=== PATIENT | male | born 1935 | race Caucasian/White ===

== ENCOUNTER 2016-12-15 10:16 | Outpatient (CLI) | payer MEDICARE | END 2016-12-15 10:17 | disposition home or self-care (01) | DX: E78.00 Pure hypercholesterolemia, unspecified (principal) ==

== ENCOUNTER 2016-12-29 08:00 | Outpatient (CLI) | payer MEDICARE | END 2016-12-29 08:01 | DX: E78.00 Pure hypercholesterolemia, unspecified (principal); E53.8 Deficiency of other specified B group vitamins; R41.3 Other amnesia ==

== ENCOUNTER 2016-12-30 11:28 | Outpatient (CLI) | payer MEDICARE | END 2016-12-30 11:29 | disposition home or self-care (01) | DX: E53.8 Deficiency of other specified B group vitamins (principal) ==

== ENCOUNTER 2017-01-19 10:44 | Outpatient (CLI) | payer MEDICARE | END 2017-01-19 10:45 | disposition home or self-care (01) | DX: R41.0 Disorientation, unspecified (principal); R41.3 Other amnesia ==

== ENCOUNTER 2017-06-23 12:45 | Outpatient (CLI) | payer MEDICARE | END 2017-06-23 12:46 | disposition home or self-care (01) | LOC: LAB.F 12:45 | PROVIDERS: ATTEND Internal Medicine | DX: E53.8 Deficiency of other specified B group vitamins (principal) | CPT/HCPCS: 36415; 82607 ==

== ENCOUNTER 2017-08-25 12:34 | Outpatient (CLI) | payer MEDICARE | END 2017-08-25 12:35 | disposition home or self-care (01) | LOC: LAB.F 12:34 | PROVIDERS: ATTEND Family Medicine | DX: E53.8 Deficiency of other specified B group vitamins (principal) | CPT/HCPCS: 36415; 82607 ==

== ENCOUNTER 2017-09-05 18:23 | Outpatient (CLI) | payer MEDICARE | END 2017-09-05 18:24 | disposition critical access hospital (66) | LOC: EMS 18:23 | PROVIDERS: ATTEND Surgery | DX: R53.1 Weakness (principal); R41.0 Disorientation, unspecified; R05 Cough | CPT/HCPCS: A0425; A0427 ==

== ENCOUNTER 2017-09-05 19:19 | Emergency (ER) | payer MEDICARE ==
[2017-09-05 20:13] LABS: BILIRUBIN,URINE NEGATIVE (NEGATIVE); PH,URINE 5.5 PH (5.0-7.5); UA CHARGE (STRIP ONLY) YES; UR CULTURE IF IND NOT INDICATED
[2017-09-05] MEDS ORDERED: ONDANSETRON ODT 4 MG TABLET TL STA (20:59)
--- NOTE | 2017-09-05 21:13 | XRAY Preliminary Report ---
Exam: XR CHEST 2 VIEW PA/LAT IMPRESSION: Clear lungs. [facility] SITE ID: [id number]
--- NOTE | 2017-09-05 21:15 | XRAY Report ---
EXAM: CHEST RADIOGRAPHY EXAM DATE: 09/05/2017 08:11 PM. CLINICAL HISTORY: Cough. Vomiting. COMPARISON: 06/10/2012. TECHNIQUE: 2 views. FINDINGS: Lungs/Pleura: No focal opacities evident. No pleural effusion. No pneumothorax. Normal volumes. Mediastinum: Heart and mediastinal contours are unremarkable. Other: Stable mild midthoracic compression fracture. IMPRESSION: Clear lungs. [facility] Referring Provider Line: [phone] SITE ID: [id number]
[2017-09-05] MEDS ORDERED: AZITHROMYCIN 250 MG TABLET PO STA (21:33)
--- NOTE | 2017-09-05 23:02 | ED Physician Documentation ---
History of Present Illness - Stated complaint Stated Complaint: NAUSEA - Chief complaint Chief Complaint: Fever - History obtained from History obtained from: Family (pt here for evaluation of 1 week of a cough and decreased PO intake today and vomiting and diarrhea. Pt has hx od dementia. states that the pt was weak today. he arrived by ems.) Review of Systems Unable to obtain: Other (ROS provided by . pt denied any symptoms when asked but I believe his dementia limited his responces.) Constitutional: reports: Fever, Chills, Myalgias, Fatigue Respiratory: reports: Cough. denies: Dyspnea, Hemoptysis GI: reports: Nausea, Vomiting, Diarrhea. denies: Hematemesis, Bloody / black stool : reports: Incontinent Skin: denies: Rash Neurologic: reports: Generalized weakness. denies: Altered mental status, LOC PD PAST MEDICAL HISTORY - Past Medical History Past Medical History: Yes Respiratory: None Neuro: Alzhiemer's Endocrine/Autoimmune: None GI: GERD : None HEENT: None Psych: None Musculoskeletal: None Derm: None - Past Surgical History Past Surgical History: Yes General: Cholecystectomy, Bowel surgery, Colonoscopy Ortho: Other - Present Medications Home Medications: Ambulatory Orders Medication Instructions Recorded Confirmed Azithromycin 250 mg PO DAILY #4 tablet 09/05/17 Donepezil HCl [Aricept] 10 mg DAILY 09/05/17 09/05/17 Memantine HCl 10 mg DAILY 09/05/17 09/05/17 Ondansetron Odt [Zofran Odt] 4 mg TL Q6H PRN #10 tablet 09/05/17 Ranitidine HCl [Heartburn Relief] 150 mg PO DAILY 09/05/17 09/05/17 - Allergies Allergies/Adverse Reactions: Allergies Allergy/AdvReac Type Severity Reaction Status Date / Time No Known Drug Allergies Allergy Verified 09/05/17 19:29 - Social History Does the pt smoke?: No Smoking Status: Never smoker Does the pt drink ETOH?: No Does the pt have substance abuse?: No - Immunizations Immunizations are current?: Yes - POLST Patient has POLST: No PD ED PE NORMAL - Vitals Vital signs reviewed: Yes (Tachycardic to 105 in triage) - General General: No acute distress - HEENT HEENT: Atraumatic, Moist mucous membranes - Cardiac Cardiac: No murmur. No: RRR (tachycardic ) - Respiratory Respiratory: No respiratory distress, Clear bilaterally - Abdomen Abdomen: Soft - Rectal Rectal: Other (hemeoccult neg with control positive. green stool ) - Derm Derm: Normal color, Warm and dry, No rash - Neuro Neuro: Normal speech, Other (alert to person, states he is in a hospital but named a nospital in [place]. states that he is at baseline mental status. ) Eye Opening: Spontaneous Motor: Obeys Commands Verbal: Confused GCS Score: 14 - Psych Psych: Normal affect Results - Vitals Vitals: Vital Signs - 24 hr 09/05/17 09/05/17 19:21 22:37 Temperature 36.7 C 36.9 C Heart Rate 100 105 H Respiratory 18 28 H Rate Blood Pressure 139/89 H 145/85 H O2 Saturation 94 93 Oxygen O2 Source Room air - Labs Labs: Laboratory Tests 09/05/17 20:05 Urine Color YELLOW Urine Clarity CLEAR Urine pH 5.5 Ur Specific [place] >=1.030 H Urine Protein TRACE Urine Glucose (UA) NEGATIVE Urine Ketones TRACE Urine Occult Blood TRACE-INTA Urine Nitrite NEGATIVE Urine Bilirubin NEGATIVE Urine Urobilinogen 0.2 (NORMAL) Ur Leukocyte Esterase NEGATIVE Ur Microscopic Review NOT INDICATED Urine Culture Comments NOT INDICATED - Rads (name of study) CXR Radiology: Final report received PD MEDICAL DECISION MAKING - ED course Complexity details: reviewed results, re-evaluated patient, considered differential, d/w family ED course: pt tachycardic and high spec grav on UA which lends toward mild dehydration. pt received fluids in the ER. Pt tolerated PO intake in the ER. he has had subjective fevers per the and with the cough and nausea and vomiting will start ABX for presumed PNA. pt has no risk for HCAP. pt given first dose of ABX here in the ER and tolerated well. discussed treatment with the and the patient. we discussed increasing PO intake and gave return precautions. Just prior to discharge the states that she felt uncomfortable with taking the patient home because she felt like the patient was not "normal". We discussed head CT for concerns of a CVA but the declined. she thought that the patient was still dehydrated. After further discussion i explained to her that he was tolerating oral intake. looked well. unremarkable vital signs. His was concerned about how she was going to get the patient home. I offered to let them stay in the ER overnight and we could discharge them in the morning when she could call for a ride. I gave the patient another 1L fluids and ad maite po intake. pt remained stable in the ER overnight. Departure - Departure Disposition: Home, Self Care Clinical Impression: Pneumonia, Diarrhea, Vomiting Condition: Good Instructions: Pneumonia Dc, Diet Clear Liquid Dc, ED Diet Vomiting Diarrhea Follow-Up: primary, care provider [Other] Prescriptions: Azithromycin 250 mg PO DAILY #4 tablet Ondansetron Odt [Zofran Odt] 4 mg TL Q6H PRN #10 tablet PRN Reason: Nausea / Vomiting Comments: Increase your fluid intake. Fill the medications on Wednesday morning. Return to the ER for any new or worsening symptoms.
[2017-09-05] MEDS ORDERED: ONDANSETRON ODT 4 MG Prepack 2 TL PRN (23:37)
[2017-09-05] MEDS ORDERED: SODIUM CHLORIDE 0.9% 1,000 ML IV ONE (23:54)
[2017-09-06 06:36] VITALS: BP 139/79
[2017-09-06] MEDS ORDERED: AZITHROMYCIN 250 MG TABLET PO STA (07:16)
[2017-09-06] MEDS ORDERED: ONDANSETRON ODT 4 MG Prepack 2 TL STA (07:16)
== END 2017-09-06 07:24 | disposition home or self-care (01) ==
LOC: EDUNIT# → ED 19:19
DX: J18.9 Pneumonia, unspecified organism (principal); R19.7 Diarrhea, unspecified; R11.2 Nausea with vomiting, unspecified; G30.9 Alzheimer's disease, unspecified; F02.80 Dementia in other diseases classified elsewhere, unspecified severity, without behavioral disturbance, psychotic disturbance, mood disturbance, and anxiety; K21.9 Gastro-esophageal reflux disease without esophagitis
CPT/HCPCS: 71020; 81003; 96360; 99283; A9270; Q0162; 81001; 87086

== ENCOUNTER 2018-02-15 15:43 | Outpatient (CLI) | payer MEDICARE ==
--- NOTE | 2018-02-18 10:42 | XRAY Report ---
XRAY 2 VIEW RIGHT: 02/15/2018 FINDINGS: Atrophic area right thenar eminence and first MCP joint. Scattered degenerative changes seen in the interphalangeal joints of the fingers and thumb. Minimal early first metacarpocarpal articulation degenerative changes. No other significant abnormality is seen. IMPRESSION: DEGENERATIVE CHANGE RIGHT HAND. COMMENT: Requisition refers to excluding a carpal bone occult fracture. If there is high clinical suspicion for wrist pathology, detailed four view wrist imaging may be useful. TD: 02/16/2018 12:29
== END 2018-02-15 15:44 | disposition home or self-care (01) ==
LOC: DI.S 15:43
PROVIDERS: ATTEND Internal Medicine
DX: M21.941 Unspecified acquired deformity of hand, right hand (principal)

== ENCOUNTER 2018-03-15 08:13 | Outpatient (CLI) | payer MEDICARE | END 2018-03-15 08:14 | disposition home or self-care (01) | LOC: LAB.F 08:13 | PROVIDERS: ATTEND Physician Assistant Medical | DX: E53.8 Deficiency of other specified B group vitamins (principal) | CPT/HCPCS: 36415; 82607 ==

== ENCOUNTER 2018-04-05 08:48 | Outpatient (CLI) | payer MEDICARE ==
[2018-04-05 17:39] LABS: BASOPHILS # (AUTO) 0.1 10^3/uL (0.0-0.1); BASOPHILS % (AUTO) 1.4 %; EOSINOPHILS # (AUTO) 0.3 10^3/uL (0.0-0.7); EOSINOPHILS % (AUTO) 4.5 %; HGB - HEMOGLOBIN 14.8 g/dL (14.0-18.0); LYMPHOCYTES # (AUTO) 1.4 10^3/uL (1.5-3.5); LYMPHOCYTES % (AUTO) 24.3 %; MEAN CORPUSCULAR HEMOGLOBIN 31.5 pg (27.0-31.0); MEAN CORPUSCULAR VOLUME 95.5 fL (80.0-94.0); MEAN PLATELET VOLUME 8.8 fL (7.4-11.4); MONOCYTES # (AUTO) 0.6 10^3/uL (0.0-1.0); MONOCYTES % (AUTO) 10.2 %; NEUTROPHILS # (AUTO) 3.5 10^3/uL (1.5-6.6); NEUTROPHILS % (AUTO) 59.6 %; PLT - PLATELET COUNT 160 10^3/uL (130-450); RED BLOOD COUNT 4.69 10^6/uL (4.70-6.10); RED CELL DISTRIBUTION WIDTH 14.2 % (12.0-15.0); WHITE BLOOD COUNT 5.8 x10^3/uL (4.8-10.8)
[2018-04-05 18:02] LABS: ALBUMIN 3.9 g/dL (3.2-5.5); ALBUMIN/GLOBULIN RATIO 1.3 (1.0-2.2); ALKALINE PHOSPHATASE 68 IU/L (42-121); ALT ALANINE AMINOTRANSFERASE 16 IU/L (10-60); AST ASPARTATE AMINOTRANSFERASE 22 IU/L (10-42); BILIRUBIN,TOTAL 1.4 mg/dL (0.2-1.0); BUN - BLOOD UREA NITROGEN 16 mg/dL (6-20); CALCIUM 9.5 mg/dL (8.5-10.3); CARBON DIOXIDE - CO2 26 mmol/L (21-32); CHLORIDE 106 mmol/L (101-111); CHOL/HDL RATIO 3.5 (<5.0); CHOLESTEROL 156 mg/dL; CREATININE 1.1 mg/dL (0.6-1.2); GFR - MDRD 64 (>89); GLUCOSE 89 mg/dL (70-100); HDL CHOLESTEROL 44 mg/dL; LDL CHOLESTEROL,CALCULATED 92 mg/dL; LDL/HDL RATIO 2.1 (<3.6); SODIUM 138 mmol/L (135-145); TOTAL PROTEIN 6.9 g/dL (6.7-8.2); VLDL CHOLESTEROL 20 mg/dL
== END 2018-04-05 08:49 | disposition home or self-care (01) ==
LOC: LAB.F 08:48
PROVIDERS: ATTEND Physician Assistant Medical
DX: Z51.81 Encounter for therapeutic drug level monitoring (principal); E78.00 Pure hypercholesterolemia, unspecified
CPT/HCPCS: 36415; 80053; 80061; 83721; 85025

== ENCOUNTER 2018-04-08 10:31 | Outpatient (CLI) | payer MEDICARE ==
--- NOTE | 2018-04-08 11:45 | XRAY Report ---
Procedure Date: 04/08/2018 Accession Number: [id number] / [id number] Procedure: XRS - Chest 2 View X-Ray CPT Code: 14850 FULL RESULT: EXAM: Chest 2 View X-Ray DATE: 04/08/2018 10:46 AM CLINICAL HISTORY: CHRONIC COUGH COMPARISON: 09/05/2017. TECHNIQUE: 2 views. FINDINGS: Lungs/Pleura: No focal opacities evident. No pneumothorax or pleural effusion. Normal volumes. Mediastinum: Heart and mediastinal contours are unremarkable. Other: None. IMPRESSION: No acute cardiopulmonary abnormality. [facility]
== END 2018-04-08 10:32 | disposition home or self-care (01) ==
LOC: DI.S 10:31
PROVIDERS: ATTEND Physician Assistant Medical
DX: R05 Cough (principal)
CPT/HCPCS: 71046

== ENCOUNTER 2018-07-06 11:26 | Outpatient (CLI) | payer MEDICARE | END 2018-07-06 11:27 | disposition home or self-care (01) | LOC: LAB.F 11:26 | PROVIDERS: ATTEND Physician Assistant Medical | DX: E53.8 Deficiency of other specified B group vitamins (principal) | CPT/HCPCS: 36415; 82607 ==

== ENCOUNTER 2018-10-05 14:21 | Outpatient (CLI) | payer MEDICARE | END 2018-10-05 14:22 | disposition home or self-care (01) | LOC: LAB.F 14:21 | PROVIDERS: ATTEND Physician Assistant Medical | DX: E53.8 Deficiency of other specified B group vitamins (principal) | CPT/HCPCS: 36415; 82607 ==

== ENCOUNTER 2018-12-02 15:13 | Outpatient (CLI) | payer MEDICARE ==
--- NOTE | 2018-12-04 22:02 | XRAY Report ---
Reason: RIB PAIN,LEFT SIDED Procedure Date: 12/02/2018 Accession Number: [id number] / [id number] Procedure: XR - Ribs w/PA Chest LT CPT Code: FULL RESULT: EXAM: CHEST AND LEFT RIB RADIOGRAPHY. EXAM DATE: 12/02/2018 03:59 PM. CLINICAL HISTORY: Rib pain, left-sided. COMPARISON: CHEST 2 VIEW PA/LAT 09/05/2017 8:10 PM. TECHNIQUE: 1 view of the chest and 2 views of the ribs. FINDINGS: Bones: Possible subacute fracture of the anterior portion of the left 10th rib, near the costochondral junction. A clinical subtle abnormality of the costochondral junction of the left ninth rib. There is an old healed posterolateral left sixth rib fracture. Lungs: No focal opacities. No pneumothorax. No pleural effusions. Mediastinum: Heart and mediastinal contours are unremarkable. Other: Moderate bilateral shoulder degenerative change. Prior cholecystectomy. IMPRESSION: 1. Subacute fracture of the anterior costochondral junction of the left 10th rib is suspected. Equivocal similar abnormality of the left ninth costochondral junction region. 2. Old healed left sixth rib fracture. [facility]
== END 2018-12-02 15:14 | disposition home or self-care (01) ==
LOC: DI 15:13
PROVIDERS: ATTEND Physician Assistant Medical
DX: R07.81 Pleurodynia (principal)

== ENCOUNTER 2019-09-20 14:00 | Outpatient (CLI) | payer MEDICARE ==
[2019-09-20 16:58] LABS: BASOPHILS # (AUTO) 0.1 10^3/uL (0.0-0.1); BASOPHILS % (AUTO) 0.9 %; EOSINOPHILS # (AUTO) 0.2 10^3/uL (0.0-0.7); EOSINOPHILS % (AUTO) 2.2 %; LYMPHOCYTES # (AUTO) 1.4 10^3/uL (1.5-3.5); LYMPHOCYTES % (AUTO) 20.9 %; MEAN CORPUSCULAR HEMOGLOBIN 31.7 pg (27.0-31.0); MEAN CORPUSCULAR HGB CONC 33.3 g/dL (32.0-36.0); MEAN CORPUSCULAR VOLUME 95.3 fL (80.0-94.0); MEAN PLATELET VOLUME 10.6 fL (7.4-11.4); MONOCYTES # (AUTO) 0.6 10^3/uL (0.0-1.0); MONOCYTES % (AUTO) 8.8 %; NEUTROPHILS # (AUTO) 4.5 10^3/uL (1.5-6.6); NEUTROPHILS % (AUTO) 66.6 %; PLT - PLATELET COUNT 175 10^3/uL (130-450); RED BLOOD COUNT 4.73 10^6/uL (4.70-6.10); RED CELL DISTRIBUTION WIDTH 12.3 % (12.0-15.0); WHITE BLOOD COUNT 6.7 x10^3/uL (4.8-10.8)
[2019-09-20 17:19] LABS: ALBUMIN 3.8 g/dL (3.2-5.5); ALBUMIN/GLOBULIN RATIO 1.4 (1.0-2.2); BILIRUBIN,TOTAL 0.7 mg/dL (0.2-1.0); CALCIUM 9.5 mg/dL (8.5-10.3); CREATININE 1.2 mg/dL (0.6-1.2); TOTAL PROTEIN 6.6 g/dL (6.7-8.2)
== END 2019-09-20 14:01 | disposition home or self-care (01) ==
LOC: LAB.S 14:00
PROVIDERS: ATTEND Physician Assistant Medical
DX: I10 Essential (primary) hypertension (principal)
CPT/HCPCS: 36415; 80053; 85025

== ENCOUNTER 2020-08-30 07:20 | Outpatient (CLI) | payer MEDICARE ==
[2020-08-30 15:53] LABS: BASOPHILS # (AUTO) 0.1 10^3/uL (0.0-0.1); BASOPHILS % (AUTO) 0.8 %; EOSINOPHILS # (AUTO) 0.1 10^3/uL (0.0-0.7); EOSINOPHILS % (AUTO) 2.3 %; LYMPHOCYTES # (AUTO) 1.6 10^3/uL (1.5-3.5); LYMPHOCYTES % (AUTO) 25.6 %; MEAN CORPUSCULAR HEMOGLOBIN 31.1 pg (27.0-31.0); MEAN CORPUSCULAR HGB CONC 31.9 g/dL (32.0-36.0); MEAN CORPUSCULAR VOLUME 97.3 fL (80.0-94.0); MEAN PLATELET VOLUME 10.8 fL (7.4-11.4); MONOCYTES # (AUTO) 0.6 10^3/uL (0.0-1.0); MONOCYTES % (AUTO) 9.5 %; NEUTROPHILS # (AUTO) 3.8 10^3/uL (1.5-6.6); NEUTROPHILS % (AUTO) 61.5 %; PLT - PLATELET COUNT 176 10^3/uL (130-450); RED BLOOD COUNT 4.83 10^6/uL (4.70-6.10); RED CELL DISTRIBUTION WIDTH 12.9 % (12.0-15.0); WHITE BLOOD COUNT 6.1 x10^3/uL (4.8-10.8)
[2020-08-30 16:05] LABS: ALBUMIN 3.5 g/dL (3.2-5.5); ALBUMIN/GLOBULIN RATIO 1.1 (1.0-2.2); CALCIUM 9.3 mg/dL (8.5-10.3); CREATININE 1.1 mg/dL (0.6-1.2); TOTAL PROTEIN 6.7 g/dL (6.7-8.2)
== END 2020-08-30 07:21 | disposition home or self-care (01) ==
LOC: LAB.S 07:20
PROVIDERS: ATTEND Internal Medicine
DX: I10 Essential (primary) hypertension (principal)
CPT/HCPCS: 36415; 80053; 85025

== ENCOUNTER 2020-12-19 08:00 | Outpatient (CLI) | payer MEDICARE ==
--- NOTE | 2020-12-19 14:05 | XRAY Report ---
PROCEDURE: Ribs w/PA Chest LT INDICATIONS: LEFT SIDED RIB PAIN/CHEST WALL PAIN TECHNIQUE: 2 views of the left ribs were acquired, along with a single view chest. COMPARISON: 2 view chest x-ray 04/08/2018 FINDINGS: Surgical changes and devices: None. Bones and chest wall: Chronic-appearing left sixth rib fracture. No displaced acute rib fracture. No suspicious bony lesions. Overlying soft tissues appear unremarkable. Lungs and pleura: No pleural effusions or pneumothorax. Lungs appear clear. Mediastinum: Mediastinal contours appear normal. Heart size is normal. IMPRESSION: 1. No acute displaced rib fracture. 2. Chronic appearing left sixth rib fracture. 3. No acute cardiopulmonary disease process. Reviewed by: Trice Patrick MD, PhD on 12/19/2020 2:04 PM PDT Approved by: Trice Patrick MD, PhD on 12/19/2020 2:04 PM PDT Station ID: [id number]
== END 2020-12-19 23:59 | disposition home or self-care (01) ==
LOC: DI.S 08:00
PROVIDERS: ATTEND Physician Assistant Medical
DX: R07.89 Other chest pain (principal)

== ENCOUNTER 2021-01-11 05:25 | Outpatient (CLI) | payer MEDICARE | END 2021-01-11 05:26 | disposition EMS.NT | LOC: EMS 05:25 | DX: Z03.89 Encounter for observation for other suspected diseases and conditions ruled out (principal) ==

== ENCOUNTER 2021-03-23 15:35 | Outpatient (CLI) | payer MEDICARE | END 2021-03-23 15:36 | disposition critical access hospital (66) | LOC: EMS 15:35 | DX: R25.1 Tremor, unspecified (principal); R11.10 Vomiting, unspecified; R53.1 Weakness | CPT/HCPCS: A0425; A0429 ==

== ENCOUNTER 2021-03-23 16:08 | Inpatient (IN) | payer MEDICARE ==
--- NOTE | 2021-03-23 16:18 | ED Physician Documentation ---
History of Present Illness - Stated complaint Stated Complaint: BACK PX/SHAKING - History obtained from History obtained from: EMS - Additonal information Additional information: 85-year-old gentleman presents by ambulance. Reportedly had gone to an urgent care care complaining of shakes chills and vomiting. While there was also complaining of chest and abdominal pain. Noted to be hypoxic on the way here. He is demented and cannot provide any history. Reportedly the should be closely following behind. Everything that the paramedics are saying and paperwork that accompanies him suggest that he is would not want intubation/s urgery etc. Review of Systems Unable to obtain: Dementia PD PAST MEDICAL HISTORY - Past Medical History Respiratory: None Endocrine/Autoimmune: None GI: GERD : None HEENT: None Psych: None Musculoskeletal: None Derm: None - Past Surgical History Past Surgical History: Yes General: Cholecystectomy, Bowel surgery, Colonoscopy Ortho: Other - Present Medications Home Medications: Ambulatory Orders Medication Instructions Recorded Confirmed Donepezil HCl [Aricept] 10 mg DAILY 09/05/17 03/23/21 Memantine HCl 10 mg PO DAILY 09/05/17 03/23/21 Acetaminophen/Diphenhydramine [[facility] 2 tab PO HS 03/23/21 03/23/21 Pain Relief Pm Caplet] Meloxicam [Mobic] 1 tab PO DAILY 03/23/21 03/23/21 Naproxen [Naprosyn] 1 tab PO DAILY 03/23/21 03/23/21 Omeprazole 1 tab PO DAILY 03/23/21 03/23/21 amLODIPine [Norvasc] 2.5 mg PO DAILY 03/23/21 03/23/21 - Allergies Allergies/Adverse Reactions: Allergies Allergy/AdvReac Type Severity Reaction Status Date / Time No Known Drug Allergies Allergy Verified 03/23/21 16:28 - Social History Does the pt smoke?: No Smoking Status: Never smoker Does the pt drink ETOH?: No Does the pt have substance abuse?: No - Immunizations Immunizations are current?: Yes - POLST Patient has POLST: No PD ED PE NORMAL - Vitals Vital signs reviewed: Yes - General General: Other (He is tachypneic and mildly ill-appearing, covered in vomitus. He knows his name, but cannot, up with the year, his age, or where he is.) - HEENT HEENT: PERRL, EOMI - Neck Neck: Supple, no meningeal sign, No bony TTP - Cardiac Cardiac: RRR, No murmur - Respiratory Respiratory: Other (Tachypneic, decreased at the bases) - Abdomen Abdomen: Non tender - Back Back: No CVA TTP, No spinal TTP - Derm Derm: Normal color, Warm and dry - Extremities Extremities: Other (Moderate bilateral pitting pedal edema) - Neuro Eye Opening: Spontaneous Motor: Obeys Commands Verbal: Confused GCS Score: 14 Results - Vitals Vitals: Vital Signs - 24 hr 03/23/21 03/23/21 03/23/21 16:15 16:33 17:19 Temperature 36.3 C L Heart Rate 113 H 110 H 101 H Respiratory 17 18 27 H Rate Blood Pressure 138/84 H 115/83 H O2 Saturation 88 L 91 L 1 L 03/23/21 03/23/21 03/23/21 18:00 18:30 18:45 Temperature Heart Rate 99 99 101 H Respiratory 28 H 24 26 H Rate Blood Pressure 120/71 114/68 116/66 O2 Saturation 91 L 94 92 Oxygen O2 Source Room air - EKG (time done) 1825 Rate: Rate (enter#) (99) Rhythm: Atrial fibrillation Intervals: RBBB QRS: Normal Ischemia: Non specific changes (He does have some potentially ischemic EKG changes with ST elevation inferiorly, but it is generally submillimeter. And there is no real reciprocal change.) Computer interpretation: Agree with computer - Labs Labs: Laboratory Tests 03/23/21 03/23/21 03/23/21 16:25 16:25 16:25 WBC 13.8 H RBC 4.73 Hgb 14.8 Hct 43.2 MCV 91.3 MCH 31.3 H MCHC 34.3 RDW 13.3 Plt Count 170 MPV 10.1 Neut # (Auto) 12.9 H Lymph # (Auto) 0.[address] [place] # (Auto) 0.6 Eos # (Auto) 0.0 Baso # (Auto) 0.0 Absolute Nucleated RBC 0.00 Nucleated RBC % 0.0 Sodium 138 Potassium 3.6 Chloride 109 Carbon Dioxide 20 L Anion Gap 9.0 BUN 19 Creatinine 1.1 Estimated GFR (MDRD) 64 L Glucose 100 Lactic Acid Calcium 9.8 Total Bilirubin 1.5 H AST 35 ALT 21 Alkaline Phosphatase 108 Troponin I High Sens 78.0 H* B-Natriuretic Peptide Total Protein 7.0 Albumin 3.6 Globulin 3.4 Albumin/Globulin Ratio 1.1 Lipase 24 Urine Color Urine Clarity Urine pH Ur Specific [place] Urine Protein Urine Glucose (UA) Urine Ketones Urine Occult Blood Urine Nitrite Urine Bilirubin Urine Urobilinogen Ur Leukocyte Esterase Urine RBC Urine WBC Ur Squamous Epith Cells Urine Crystals Urine Bacteria Ur Microscopic Review Urine Culture Comments 03/23/21 03/23/21 03/23/21 16:25 16:31 18:58 WBC RBC Hgb Hct MCV MCH MCHC RDW Plt Count MPV Neut # (Auto) Lymph # (Auto) [place] # (Auto) Eos # (Auto) Baso # (Auto) Absolute Nucleated RBC Nucleated RBC % Sodium Potassium Chloride Carbon Dioxide Anion Gap BUN Creatinine Estimated GFR (MDRD) Glucose Lactic Acid 2.4 H Calcium Total Bilirubin AST ALT Alkaline Phosphatase Troponin I High Sens 137.5 H* B-Natriuretic Peptide 579 H Total Protein Albumin Globulin Albumin/Globulin Ratio Lipase Urine Color Urine Clarity Urine pH Ur Specific [place] Urine Protein Urine Glucose (UA) Urine Ketones Urine Occult Blood Urine Nitrite Urine Bilirubin Urine Urobilinogen Ur Leukocyte Esterase Urine RBC Urine WBC Ur Squamous Epith Cells Urine Crystals Urine Bacteria Ur Microscopic Review Urine Culture Comments 03/23/21 19:10 WBC RBC Hgb Hct MCV MCH MCHC RDW Plt Count MPV Neut # (Auto) Lymph # (Auto) [place] # (Auto) Eos # (Auto) Baso # (Auto) Absolute Nucleated RBC Nucleated RBC % Sodium Potassium Chloride Carbon Dioxide Anion Gap BUN Creatinine Estimated GFR (MDRD) Glucose Lactic Acid Calcium Total Bilirubin AST ALT Alkaline Phosphatase Troponin I High Sens B-Natriuretic Peptide Total Protein Albumin Globulin Albumin/Globulin Ratio Lipase Urine Color YELLOW Urine Clarity HAZY Urine pH 5.0 Ur Specific [place] >=1.030 H Urine Protein TRACE Urine Glucose (UA) NEGATIVE Urine Ketones TRACE Urine Occult Blood MODERATE H Urine Nitrite POSITIVE H Urine Bilirubin NEGATIVE Urine Urobilinogen 0.2 (NORMAL) Ur Leukocyte Esterase SMALL H Urine RBC 6-10 H Urine WBC 11-25 H Ur Squamous Epith Cells NONE SEEN Urine Crystals 11-25 Ca Oxalate Urine Bacteria Many H Ur Microscopic Review INDICATED Urine Culture Comments INDICATED PD MEDICAL DECISION MAKING - ED course ED course: is at the bedside and further history was taken from her. He has a chronic cough and ongoing back pain from fall from a month ago. Today at around 2 PM started shaking and was taken to the urgent care. Seems better to her now. The cough is chronic from GERD. Agrees that she would like conservative treatment but is agreeable with antibiotics for infectious causes etc. but probably would not want stents or surgery or anything of that ilk. 85-year-old gentleman with fairly severe dementia presents by ambulance after an episode of abdominal, chest, back pain and sweats and vomiting. He is tachypneic on exam with pedal edema and a frequent cough, both of those the says are chronic. Work-up here demonstrates an ischemic EKG with elevating troponin albeit not in a elevation range or progression that I would consider consistent with FRANTZ/STEMI. He does have an elevated white blood cell count and evidence of pyuria. We will treat the pyuria given the circumstances. I had a long discussion of with the about goals of care. We discussed what is going on with his heart could be due to infection or primary cardiac etiology. She is fairly conservative in goals of care and would like to start with IV antibiotics and monitoring. Given the hypoxemia though I will give him a dose of Lovenox and scan his chest as well for PE as that does not fit the clinical circumstances otherwise. Spoke with Dr. Melton for admission at 8:08 PM. - Critical Care Time(min): 45 Time Includes: Direct patient care, Review records, Reassess patient, Document care, Coordinate care, Medical consult, Family consult for tx dec Data interpretation: Labs, Pulse ox Procedures included in critical care time: Peripheral IV Procedures excluded from critical care time: EKG Departure - Departure Disposition: 66 [facility] DC/Xfer Clinical Impression: Elevated troponin, Hypoxemia Vomiting Qualifiers: Vomiting type: unspecified Vomiting Intractability: non-intractable Nausea presence: with nausea Qualified Code(s): R11.2 - Nausea with vomiting, unspecified UTI (urinary tract infection) Qualifiers: Urinary tract infection type: site unspecified Hematuria presence: without hematuria Qualified Code(s): N39.0 - Urinary tract infection, site not specified Condition: Critical
[2021-03-23 16:38] LABS: BASOPHILS % (AUTO) 0.3 %; EOSINOPHILS % (AUTO) 0.1 %; HCT - HEMATOCRIT 43.2 % (42.0-52.0); HGB - HEMOGLOBIN 14.8 g/dL (14.0-18.0); LYMPHOCYTES # (AUTO) 0.3 10^3/uL (1.5-3.5); LYMPHOCYTES % (AUTO) 1.8 %; MEAN CORPUSCULAR HEMOGLOBIN 31.3 pg (27.0-31.0); MEAN CORPUSCULAR HGB CONC 34.3 g/dL (32.0-36.0); MEAN CORPUSCULAR VOLUME 91.3 fL (80.0-94.0); MEAN PLATELET VOLUME 10.1 fL (7.4-11.4); MONOCYTES # (AUTO) 0.6 10^3/uL (0.0-1.0); MONOCYTES % (AUTO) 4.1 %; NEUTROPHILS # (AUTO) 12.9 10^3/uL (1.5-6.6); NEUTROPHILS % (AUTO) 93.2 %; PLT - PLATELET COUNT 170 10^3/uL (130-450); RED BLOOD COUNT 4.73 10^6/uL (4.70-6.10); RED CELL DISTRIBUTION WIDTH 13.3 % (12.0-15.0); WHITE BLOOD COUNT 13.8 x10^3/uL (4.8-10.8)
[2021-03-23 16:53] LABS: ALBUMIN 3.6 g/dL (3.2-5.5); ALBUMIN/GLOBULIN RATIO 1.1 (1.0-2.2); BILIRUBIN,TOTAL 1.5 mg/dL (0.2-1.0); CALCIUM 9.8 mg/dL (8.5-10.3); CREATININE 1.1 mg/dL (0.6-1.2); POTASSIUM 3.6 mmol/L (3.5-5.0)
--- NOTE | 2021-03-23 18:03 | XRAY Report ---
PROCEDURE: Chest 1 View X-Ray INDICATIONS: dyspnea, cough, ?aspiration TECHNIQUE: One view of the chest was acquired. COMPARISON: Chest x-ray 2 view, 03/09/2018 FINDINGS: Surgical changes and devices: None. Lungs and pleura: No pleural effusions or pneumothorax. Chronic interstitial prominence. No focal co nsolidation. Mediastinum: Mediastinal contours appear normal. Heart size is normal. Bones and chest wall: No suspicious bony lesions. Overlying soft tissues appear unremarkable. IMPRESSION: No acute cardiopulmonary disease. Chronic interstitial prominence Reviewed by: Luciano King MD on 03/23/2021 6:02 PM PDT Approved by: Luciano King MD on 03/23/2021 6:02 PM PDT Station ID: [id number]
[2021-03-23 19:24] LABS: BILIRUBIN,URINE NEGATIVE (NEGATIVE); GLUCOSE, URINE (UA) NEGATIVE (NEGATIVE); KETONES,URINE (UA) TRACE mg/dL (NEGATIVE); LEUKOCYTE ESTERASE, URINE SMALL (NEGATIVE); NITRITE,URINE POSITIVE (NEGATIVE); OCCULT BLOOD,URINE MODERATE (NEGATIVE); PROTEIN,URINE TRACE mg/dL (NEGATIVE); UROBILINOGEN,URINE 0.2 (NORMAL) E.U./dL (NORMAL)
[2021-03-23 19:29] LABS: CLARITY,URINE HAZY (CLEAR)
[2021-03-23 19:34] LABS: BACTERIA,URINE Many /HPF (None Seen); CRYSTALS,URINE 11-25 Ca Oxalate /LPF; SQUAMOUS EPITHELIAL CELL,UR NONE SEEN (<= Few)
[2021-03-23] MEDS ORDERED: ASPIRIN 325 MG TABLET PO STA (20:01)
[2021-03-23] MEDS ORDERED: cefTRIAXone 1 GM in SODIUM CHLORIDE 0.9% MINIBAG 100 ML IV STA (20:01)
[2021-03-23] MEDS ORDERED: cefTRIAXone 1 GM VIAL ONE (20:06)
[2021-03-23] MEDS ORDERED: ENOXAPARIN 100 MG/ML SYRINGE SUBQ STA (20:07)
[2021-03-23] MEDS ORDERED: oxyCODONE 5 MG TABLET PO PRN (20:07)
[2021-03-23] MEDS ORDERED: ONDANSETRON 4 MG/2 ML VIAL IVP PRN (20:07)
[2021-03-23] MEDS ORDERED: ONDANSETRON ODT 4 MG TABLET TL PRN (20:07)
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
[2021-03-23] MEDS ORDERED: IOVERSOL 320 100 ML VIAL IVP ONE ×2 (20:34→21:12)
[2021-03-23] MEDS ORDERED: LACTATED RINGERS 1,000 ML IV SCH (21:00)
[2021-03-23] MEDS ORDERED: CIPROFLOXACIN 400 MG/200 ML 400 MG/200 ML BAG IV SCH (21:00)
[2021-03-23 21:12] LABS: CORONAVIRUS 229E-RESP PCR NOT DETECTED; CORONAVIRUS HKU1-RESP PCR NOT DETECTED; CORONAVIRUS NL63-RESP PCR NOT DETECTED; CORONAVIRUS OC43-RESP PCR NOT DETECTED; HUMAN METAPNEUMOVIRUS NOT DETECTED; INFLUENZA A- RESP PCR PANEL NOT DETECTED; INFLUENZA B - RESP PCR PANEL NOT DETECTED; PARAINFLUENZA VIRUS 1 NOT DETECTED; PARAINFLUENZA VIRUS 2 NOT DETECTED; PARAINFLUENZA VIRUS 3 NOT DETECTED; RHINOVIRUS/ENTEROVIRUS NOT DETECTED; SARS-CoV-2 -RESP PCR PANEL NOT DETECTED
[2021-03-23 21:13] LABS: B. PARAPERTUSSIS- RESP PCR PAN NOT DETECTED; B. PERTUSSIS- RESP PCR PANEL NOT DETECTED; C. PNEUMONIAE- RESP PCR PANEL NOT DETECTED; M. PNEUMONIAE- RESP PCR PANEL NOT DETECTED; PARAINFLUENZA VIRUS 4 NOT DETECTED; RSV- RESP PCR PANEL NOT DETECTED
[2021-03-23] MEDS: METOPROLOL TARTRATE 25 MG TABLET PO SCH (21:38)
[2021-03-23] MEDS: ATORVASTATIN 40 MG TABLET PO SCH (21:39)
--- NOTE | 2021-03-23 21:54 | CT Report ---
PROCEDURE: ANGIO CHEST W/WO INDICATIONS: hypoxemia CONTRAST: IV CONTRAST: Optiray 320 ml: 100 PO CONTRAST: *NO PO CONTRAST TECHNIQUE: After the administration of intravenous contrast, 2 mm thick sections acquired from the pulmonary api monica to the posterior costophrenic angles. 3-dimensional maximum intensity projection (MIP) coronal a nd sagittal reformats were then acquired through the thorax. For radiation dose reduction, the follow ing was used: automated exposure control, adjustment of mA and/or kV according to patient size. COMPARISON: Chest x-ray one view, 03/23/2021. FINDINGS: Image quality: There are respiratory motion artifacts. Pulmonary arteries: Pulmonary arteries are normal in size, and demonstrate no intraluminal filling d efects to suggest central pulmonary embolism. Lungs and pleura: There are nodular groundglass infiltrates in the right upper lobe and right middle lobe, and to lesser degree, right lower lobe. Small pleural effusions are present, left greater than right. There are bibasilar atelectasis. Central and peripheral airways are patent. Mediastinum: Heart size is normal, without pericardial effusion. No mediastinal or hilar adenopathy . Thoracic aorta is normal in caliber and enhancement. Esophagus is normal in caliber, without hiat al hernia. Bones and chest wall: No suspicious bony lesions. Severe compression fracture of T7. Degenerative c hange is noted in cervical and thoracic spine. Kyphosis. No axillary or supraclavicular adenopathy. The thyroid is not well seen. Abdomen: Visualized upper abdominal solid organs appear normal in the early arterial phase of enhanc ement. Cholecystectomy. IMPRESSION: 1. Suboptimal attenuation due to significant respiratory motion artifacts. No definitive evidence for pulmonary embolism. 2. There are nodular groundglass infiltrates predominantly involving the right upper lobe and right m iddle lobe, consistent with pneumonia. Cannot rule out atypical infection. 3. Small pleural effusions bilaterally, left greater than right. Bibasilar opacities are likely atele ctasis. 4. Severe compression of T7. Reviewed by: Luciano King MD on 03/23/2021 9:53 PM PDT Approved by: Luciano King MD on 03/23/2021 9:53 PM PDT Station ID: [id number]
[2021-03-23] MEDS ORDERED: ZINC OXIDE 20% OINT 30 GM TUBE TOP PRN (21:58)
[2021-03-23] MEDS: ACETAMINOPHEN 325 MG TABLET PO PRN (23:53)
[2021-03-24] MEDS ORDERED: FUROSEMIDE 20 MG/2 ML VIAL IVP STA (02:48)
[2021-03-24] MEDS: SODIUM CHLORIDE FLUSH 0.9% 10 ML SYRINGE IVP PRN (03:02)
[2021-03-24] MEDS: SODIUM CHLORIDE FLUSH 0.9% 10 ML SYRINGE IVP SCH ×3 (03:02→18:11)
[2021-03-24 03:32] LABS: BASOPHILS % (AUTO) 0.4 %; HGB - HEMOGLOBIN 16.4 g/dL (14.0-18.0); MEAN PLATELET VOLUME 10.3 fL (7.4-11.4); RED CELL DISTRIBUTION WIDTH 13.4 % (12.0-15.0)
[2021-03-24 03:34] LABS: CALCIUM 8.9 mg/dL (8.5-10.3); CREATININE 1.2 mg/dL (0.6-1.2); POTASSIUM 3.6 mmol/L (3.5-5.0)
[2021-03-24 03:35] LABS: EOSINOPHILS % (AUTO) 4.2 %; HCT - HEMATOCRIT 49.5 % (42.0-52.0); LYMPHOCYTES % (AUTO) 12.4 %; MEAN CORPUSCULAR HEMOGLOBIN 30.9 pg (27.0-31.0); MEAN CORPUSCULAR HGB CONC 33.1 g/dL (32.0-36.0); MEAN CORPUSCULAR VOLUME 93.4 fL (80.0-94.0); MONOCYTES % (AUTO) 2.5 %; NEUTROPHILS % (AUTO) 80.3 %; PLT - PLATELET COUNT 181 10^3/uL (130-450); WHITE BLOOD COUNT 5.3 x10^3/uL (4.8-10.8)
[2021-03-24 03:41] LABS: ABNORMAL LYMPHS % (MANUAL) 0 %
[2021-03-24 03:57] LABS: BAND NEUTROPHILS % (MANUAL) 21 %; LYMPHOCYTES # (MANUAL) 0.7 10^3/uL (1.5-3.5); LYMPHOCYTES % (MANUAL) 14 %; METAMYELOCYTES % (MANUAL) 2 %; MYELOCYTES % (MANUAL) 1 %; NEUTROPHILS # (MANUAL) 4.4 10^3/uL (1.5-6.6)
[2021-03-24 03:58] LABS: DIFFERENTIAL COMMENT MANUAL DIFFERENTIAL; PLATELET ESTIMATE, MANUAL NORMAL (130-450,000) (NORMAL); PLATELET MORPHOLOGY NORMAL APPEARANCE (NORMAL); RBC MORPHOLOGY (MULTIPLE) NORMAL APPEARANCE (NORMAL); WBC MORPHOLOGY (MULTIPLE) NORMAL APPEARANCE (NORMAL)
[2021-03-24] MEDS ORDERED: cefTRIAXone 1 GM in SODIUM CHLORIDE 0.9% MINIBAG 100 ML IV SCH (08:00)
--- NOTE | 2021-03-24 08:15 | PROVIDER PROGRESS NOTE ---
Subjective - Prog Note Date Prog Note Date: 03/24/21 - Subjective Subjective: He denies feeling short of breath and reports no chest pain. Current Medications - Current Medications Current Medications: Active Medications Acetaminophen (Acetaminophen 325 Mg Tablet) 650 mg PO Q4HR PRN PRN Reason: Pain 1 to 4 Last Admin: 03/23/21 23:53 Dose: 650 mg Documented by: Aspirin (Aspirin Chew 81 Mg Tablet) 81 mg PO DAILY [facility] Atorvastatin Calcium (Atorvastatin 40 Mg Tablet) 40 mg PO QPM [facility] Last Admin: 03/23/21 21:39 Dose: 40 mg Documented by: Enoxaparin Sodium (Enoxaparin 100 Mg/Ml Syringe) 100 mg SUBQ BID [facility] Doxycycline Hyclate 100 mg/ (Sodium Chloride) 100 mls @ 100 mls/hr IV BID [facility] Stop: 03/29/21 08:59 Ceftriaxone Sodium 1 gm/ (Sodium Chloride) 100 mls @ 200 mls/hr IV Q24H [facility] Metoprolol Tartrate (Metoprolol Tartrate 25 Mg Tablet) 25 mg PO BID [facility] Last Admin: 03/23/21 21:38 Dose: 25 mg Documented by: Multi-Ingredient Ointment (Zinc Oxide 20% Oint 30 Gm Tube) 1 applic TOP PRN PRN PRN Reason: Skin Care Ondansetron HCl (Ondansetron Odt 4 Mg Tablet) 4 mg TL Q6HR PRN PRN Reason: Nausea / Vomiting Ondansetron HCl (Ondansetron 4 Mg/2 Ml Vial) 4 mg IVP Q6HR PRN PRN Reason: Nausea / Vomiting Oxycodone HCl (Oxycodone 5 Mg Tablet) 5 mg PO Q4HR PRN PRN Reason: Pain 5 to 7 Sodium Chloride (Sodium Chloride Flush 0.9% 10 Ml Syringe) 10 ml IVP PRN PRN PRN Reason: NEEDED PER PROVIDER ORDERS Last Admin: 03/24/21 03:02 Dose: 10 ml Documented by: Sodium Chloride (Sodium Chloride Flush 0.9% 10 Ml Syringe) 10 ml IVP 0100,0900,1700 [facility] Last Admin: 03/24/21 03:02 Dose: 10 ml Documented by: Donepezil HCl [Aricept] 10 mg DAILY 09/05/17 Memantine HCl 10 mg PO DAILY 09/05/17 Acetaminophen/Diphenhydramine [[facility] Pain Relief Pm Caplet] 2 tab PO HS 03/23/21 Meloxicam [Mobic] 1 tab PO DAILY 03/23/21 Naproxen [Naprosyn] 1 tab PO DAILY 03/23/21 Omeprazole 1 tab PO DAILY 03/23/21 amLODIPine [Norvasc] 2.5 mg PO DAILY 03/23/21 Objective - Vital Signs/Intake & Output Reviewed Vital Signs: Yes Vital Signs: Vital Signs x48h Temp Pulse Resp Pulse Ox 03/24/21 04:06 97 03/24/21 03:51 36.8 C 94 24 15 L Intake & Output: Intake & Output 03/21/21 03/22/21 03/23/21 03/24/21 23:59 23:59 23:59 23:59 Intake Total 300 496.667 Balance 300 496.667 - Objective General Appearance: positive: Alert, Mild distress ENT: positive: Other (Nasal cannula in place.) Respiratory: positive: Other (Appears in distress. Rhonchi throughout all lung cordova. He is tachypneic.) Cardiovascular: positive: Irregularly irregular, Tachycardia Abdomen: positive: Non-tender, No distention. negative: Tenderness Extremities: positive: Pedal edema (+1 pitting edema in his bilateral feet.) - Lab Results Fish Bones: 03/24/21 03:18 03/24/21 03:18 Other Labs: Lab Results x24hrs 03/24/21 03/24/21 03/24/21 Range/Units 07:36 06:00 03:18 WBC (4.8-10.8) x10^3/uL RBC (4.70-6.10) 10^6/uL Hgb (14.0-18.0) g/dL Hct (42.0-52.0) % MCV (80.0-94.0) fL MCH (27.0-31.0) pg MCHC (32.0-36.0) g/dL RDW (12.0-15.0) % Plt Count (130-450) 10^3/uL MPV (7.4-11.4) fL Neut # (Auto) (1.5-6.6) 10^3/uL Lymph # (Auto) (1.5-3.5) 10^3/uL [place] # (Auto) (0.0-1.0) 10^3/uL Eos # (Auto) (0.0-0.7) 10^3/uL Baso # (Auto) (0.0-0.1) 10^3/uL Absolute Nucleated RBC x10^3/uL Total Counted Band Neuts % (Manual) (0 - 10) % Abnorm Lymph % (Manual) % Metamyelocytes % ( - 0) % Myelocytes % ( - 0) % Nucleated RBC % /100WBC Neutrophils # (Manual) (1.5-6.6) 10^3/uL Lymphocytes # (Manual) (1.5-3.5) 10^3/uL Monocytes # (Manual) (0.0-1.0) 10^3/uL Eosinophils # (Manual) (0-0.7) 10^3/uL Basophils # (Manual) (0-0.1) 10^3/uL Differential Comment WBC Morphology (NORMAL) Platelet Estimate (NORMAL) Platelet Morphology (NORMAL) RBC Morph Micro Appear (NORMAL) Sodium (135-145) mmol/L Potassium (3.5-5.0) mmol/L Chloride (101-111) mmol/L Carbon Dioxide (21-32) mmol/L Anion Gap (6-13) BUN (6-20) mg/dL Creatinine (0.6-1.2) mg/dL Estimated GFR (MDRD) (>89) Glucose (70-100) mg/dL Lactic Acid 2.0 (0.5-2.2) mmol/L Calcium (8.5-10.3) mg/dL Total Bilirubin (0.2-1.0) mg/dL AST (10-42) IU/L ALT (10-60) IU/L Alkaline Phosphatase (42-121) IU/L Troponin I High Sens 314.1 H* 224.3 H* (2.3-19.7) ng/L B-Natriuretic Peptide (5-100) pg/mL Total Protein (6.7-8.2) g/dL Albumin (3.2-5.5) g/dL Globulin (2.1-4.2) g/dL Albumin/Globulin Ratio (1.0-2.2) Lipase (22-51) U/L Urine Color Urine Clarity (CLEAR) Urine pH (5.0-7.5) PH Ur Specific [place] (1.002-1.030) Urine Protein (NEGATIVE) mg/dL Urine Glucose (UA) (NEGATIVE) mg/dL Urine Ketones (NEGATIVE) mg/dL Urine Occult Blood (NEGATIVE) Urine Nitrite (NEGATIVE) Urine Bilirubin (NEGATIVE) Urine Urobilinogen (NORMAL) E.U./dL Ur Leukocyte Esterase (NEGATIVE) Urine RBC (0-5) /HPF Urine WBC (0-3) /HPF Ur Squamous Epith Cells (<= Few) Urine Crystals /LPF Urine Bacteria (None Seen) /HPF Ur Microscopic Review Urine Culture Comments Nasal Adenovirus (PCR) Nasal B. parapertussis DNA (PCR) Nasal Coronavir 229E PCR Nasal Coronavir HKU1 PCR Nasal Coronavir NL63 PCR Nasal Coronavir OC43 PCR Nasal Enterovir/Rhinovir PCR Nasal Influenza B PCR Nasal Influenza A PCR Nasal Parainfluen 1 PCR Nasal Parainfluen 2 PCR Nasal Parainfluen 3 PCR Nasal Parainfluen 4 PCR Nasal RSV (PCR) Nasal B.pertussis DNA PCR Nasal C.pneumoniae (PCR) Jacobo Human Metapneumo PCR Nasal M.pneumoniae (PCR) Nasal SARS-CoV-2 (PCR) 03/24/21 03/24/21 03/23/21 Range/Units 03:18 03:18 20:20 WBC 5.3 (4.8-10.8) x10^3/uL RBC 5.30 (4.70-6.10) 10^6/uL Hgb 16.4 (14.0-18.0) g/dL Hct 49.5 (42.0-52.0) % MCV 93.4 (80.0-94.0) fL MCH 30.9 (27.0-31.0) pg MCHC 33.1 (32.0-36.0) g/dL RDW 13.4 (12.0-15.0) % Plt Count 181 (130-450) 10^3/uL MPV 10.3 (7.4-11.4) fL Neut # (Auto) Not Reportable (1.5-6.6) 10^3/uL Lymph # (Auto) Not Reportable (1.5-3.5) 10^3/uL [place] # (Auto) Not Reportable (0.0-1.0) 10^3/uL Eos # (Auto) Not Reportable (0.0-0.7) 10^3/uL Baso # (Auto) Not Reportable (0.0-0.1) 10^3/uL Absolute Nucleated RBC Not Reportable x10^3/uL Total Counted 100 Band Neuts % (Manual) 21 H (0 - 10) % Abnorm Lymph % (Manual) 0 % Metamyelocytes % 2 H ( - 0) % Myelocytes % 1 H ( - 0) % Nucleated RBC % Not Reportable /100WBC Neutrophils # (Manual) 4.4 (1.5-6.6) 10^3/uL Lymphocytes # (Manual) 0.7 L (1.5-3.5) 10^3/uL Monocytes # (Manual) 0.0 (0.0-1.0) 10^3/uL Eosinophils # (Manual) 0.0 (0-0.7) 10^3/uL Basophils # (Manual) 0.0 (0-0.1) 10^3/uL Differential Comment MANUAL DIFFERENTIAL WBC Morphology NORMAL APPEARANCE (NORMAL) Platelet Estimate NORMAL (130-450,000) (NORMAL) Platelet Morphology NORMAL APPEARANCE (NORMAL) RBC Morph Micro Appear NORMAL APPEARANCE (NORMAL) Sodium 132 L (135-145) mmol/L Potassium 3.6 (3.5-5.0) mmol/L Chloride 100 L (101-111) mmol/L Carbon Dioxide 20 L (21-32) mmol/L Anion Gap 12.0 (6-13) BUN 21 H (6-20) mg/dL Creatinine 1.2 (0.6-1.2) mg/dL Estimated GFR (MDRD) 58 L (>89) Glucose 131 H (70-100) mg/dL Lactic Acid (0.5-2.2) mmol/L Calcium 8.9 (8.5-10.3) mg/dL Total Bilirubin (0.2-1.0) mg/dL AST (10-42) IU/L ALT (10-60) IU/L Alkaline Phosphatase (42-121) IU/L Troponin I High Sens (2.3-19.7) ng/L B-Natriuretic Peptide (5-100) pg/mL Total Protein (6.7-8.2) g/dL Albumin (3.2-5.5) g/dL Globulin (2.1-4.2) g/dL Albumin/Globulin Ratio (1.0-2.2) Lipase (22-51) U/L Urine Color Urine Clarity (CLEAR) Urine pH (5.0-7.5) PH Ur Specific [place] (1.002-1.030) Urine Protein (NEGATIVE) mg/dL Urine Glucose (UA) (NEGATIVE) mg/dL Urine Ketones (NEGATIVE) mg/dL Urine Occult Blood (NEGATIVE) Urine Nitrite (NEGATIVE) Urine Bilirubin (NEGATIVE) Urine Urobilinogen (NORMAL) E.U./dL Ur Leukocyte Esterase (NEGATIVE) Urine RBC (0-5) /HPF Urine WBC (0-3) /HPF Ur Squamous Epith Cells (<= Few) Urine Crystals /LPF Urine Bacteria (None Seen) /HPF Ur Microscopic Review Urine Culture Comments Nasal Adenovirus (PCR) NOT DETECTED Nasal B. parapertussis DNA (PCR) NOT DETECTED Nasal Coronavir 229E PCR NOT DETECTED Nasal Coronavir HKU1 PCR NOT DETECTED Nasal Coronavir NL63 PCR NOT DETECTED Nasal Coronavir OC43 PCR NOT DETECTED Nasal Enterovir/Rhinovir PCR NOT DETECTED Nasal Influenza B PCR NOT DETECTED Nasal Influenza A PCR NOT DETECTED Nasal Parainfluen 1 PCR NOT DETECTED Nasal Parainfluen 2 PCR NOT DETECTED Nasal Parainfluen 3 PCR NOT DETECTED Nasal Parainfluen 4 PCR NOT DETECTED Nasal RSV (PCR) NOT DETECTED Nasal B.pertussis DNA PCR NOT DETECTED Nasal C.pneumoniae (PCR) NOT DETECTED Jacobo Human Metapneumo PCR NOT DETECTED Nasal M.pneumoniae (PCR) NOT DETECTED Nasal SARS-CoV-2 (PCR) NOT DETECTED 03/23/21 03/23/21 03/23/21 Range/Units 19:10 18:58 16:31 WBC (4.8-10.8) x10^3/uL RBC (4.70-6.10) 10^6/uL Hgb (14.0-18.0) g/dL Hct (42.0-52.0) % MCV (80.0-94.0) fL MCH (27.0-31.0) pg MCHC (32.0-36.0) g/dL RDW (12.0-15.0) % Plt Count (130-450) 10^3/uL MPV (7.4-11.4) fL Neut # (Auto) (1.5-6.6) 10^3/uL Lymph # (Auto) (1.5-3.5) 10^3/uL [place] # (Auto) (0.0-1.0) 10^3/uL Eos # (Auto) (0.0-0.7) 10^3/uL Baso # (Auto) (0.0-0.1) 10^3/uL Absolute Nucleated RBC x10^3/uL Total Counted Band Neuts % (Manual) (0 - 10) % Abnorm Lymph % (Manual) % Metamyelocytes % ( - 0) % Myelocytes % ( - 0) % Nucleated RBC % /100WBC Neutrophils # (Manual) (1.5-6.6) 10^3/uL Lymphocytes # (Manual) (1.5-3.5) 10^3/uL Monocytes # (Manual) (0.0-1.0) 10^3/uL Eosinophils # (Manual) (0-0.7) 10^3/uL Basophils # (Manual) (0-0.1) 10^3/uL Differential Comment WBC Morphology (NORMAL) Platelet Estimate (NORMAL) Platelet Morphology (NORMAL) RBC Morph Micro Appear (NORMAL) Sodium (135-145) mmol/L Potassium (3.5-5.0) mmol/L Chloride (101-111) mmol/L Carbon Dioxide (21-32) mmol/L Anion Gap (6-13) BUN (6-20) mg/dL Creatinine (0.6-1.2) mg/dL Estimated GFR (MDRD) (>89) Glucose (70-100) mg/dL Lactic Acid 2.4 H (0.5-2.2) mmol/L Calcium (8.5-10.3) mg/dL Total Bilirubin (0.2-1.0) mg/dL AST (10-42) IU/L ALT (10-60) IU/L Alkaline Phosphatase (42-121) IU/L Troponin I High Sens 137.5 H* (2.3-19.7) ng/L B-Natriuretic Peptide (5-100) pg/mL Total Protein (6.7-8.2) g/dL Albumin (3.2-5.5) g/dL Globulin (2.1-4.2) g/dL Albumin/Globulin Ratio (1.0-2.2) Lipase (22-51) U/L Urine Color YELLOW Urine Clarity HAZY (CLEAR) Urine pH 5.0 (5.0-7.5) PH Ur Specific [place] >=1.030 H (1.002-1.030) Urine Protein TRACE (NEGATIVE) mg/dL Urine Glucose (UA) NEGATIVE (NEGATIVE) mg/dL Urine Ketones TRACE (NEGATIVE) mg/dL Urine Occult Blood MODERATE H (NEGATIVE) Urine Nitrite POSITIVE H (NEGATIVE) Urine Bilirubin NEGATIVE (NEGATIVE) Urine Urobilinogen 0.2 (NORMAL) (NORMAL) E.U./dL Ur Leukocyte Esterase SMALL H (NEGATIVE) Urine RBC 6-10 H (0-5) /HPF Urine WBC 11-25 H (0-3) /HPF Ur Squamous Epith Cells NONE SEEN (<= Few) Urine Crystals 11-25 Ca Oxalate /LPF Urine Bacteria Many H (None Seen) /HPF Ur Microscopic Review INDICATED Urine Culture Comments INDICATED Nasal Adenovirus (PCR) Nasal B. parapertussis DNA (PCR) Nasal Coronavir 229E PCR Nasal Coronavir HKU1 PCR Nasal Coronavir NL63 PCR Nasal Coronavir OC43 PCR Nasal Enterovir/Rhinovir PCR Nasal Influenza B PCR Nasal Influenza A PCR Nasal Parainfluen 1 PCR Nasal Parainfluen 2 PCR Nasal Parainfluen 3 PCR Nasal Parainfluen 4 PCR Nasal RSV (PCR) Nasal B.pertussis DNA PCR Nasal C.pneumoniae (PCR) Jacobo Human Metapneumo PCR Nasal M.pneumoniae (PCR) Nasal SARS-CoV-2 (PCR) 03/23/21 03/23/21 03/23/21 Range/Units 16:25 16:25 16:25 WBC (4.8-10.8) x10^3/uL RBC (4.70-6.10) 10^6/uL Hgb (14.0-18.0) g/dL Hct (42.0-52.0) % MCV (80.0-94.0) fL MCH (27.0-31.0) pg MCHC (32.0-36.0) g/dL RDW (12.0-15.0) % Plt Count (130-450) 10^3/uL MPV (7.4-11.4) fL Neut # (Auto) (1.5-6.6) 10^3/uL Lymph # (Auto) (1.5-3.5) 10^3/uL [place] # (Auto) (0.0-1.0) 10^3/uL Eos # (Auto) (0.0-0.7) 10^3/uL Baso # (Auto) (0.0-0.1) 10^3/uL Absolute Nucleated RBC x10^3/uL Total Counted Band Neuts % (Manual) (0 - 10) % Abnorm Lymph % (Manual) % Metamyelocytes % ( - 0) % Myelocytes % ( - 0) % Nucleated RBC % /100WBC Neutrophils # (Manual) (1.5-6.6) 10^3/uL Lymphocytes # (Manual) (1.5-3.5) 10^3/uL Monocytes # (Manual) (0.0-1.0) 10^3/uL Eosinophils # (Manual) (0-0.7) 10^3/uL Basophils # (Manual) (0-0.1) 10^3/uL Differential Comment WBC Morphology (NORMAL) Platelet Estimate (NORMAL) Platelet Morphology (NORMAL) RBC Morph Micro Appear (NORMAL) Sodium 138 (135-145) mmol/L Potassium 3.6 (3.5-5.0) mmol/L Chloride 109 (101-111) mmol/L Carbon Dioxide 20 L (21-32) mmol/L Anion Gap 9.0 (6-13) BUN 19 (6-20) mg/dL Creatinine 1.1 (0.6-1.2) mg/dL Estimated GFR (MDRD) 64 L (>89) Glucose 100 (70-100) mg/dL Lactic Acid (0.5-2.2) mmol/L Calcium 9.8 (8.5-10.3) mg/dL Total Bilirubin 1.5 H (0.2-1.0) mg/dL AST 35 (10-42) IU/L ALT 21 (10-60) IU/L Alkaline Phosphatase 108 (42-121) IU/L Troponin I High Sens 78.0 H* (2.3-19.7) ng/L B-Natriuretic Peptide 579 H (5-100) pg/mL Total Protein 7.0 (6.7-8.2) g/dL Albumin 3.6 (3.2-5.5) g/dL Globulin 3.4 (2.1-4.2) g/dL Albumin/Globulin Ratio 1.1 (1.0-2.2) Lipase 24 (22-51) U/L Urine Color Urine Clarity (CLEAR) Urine pH (5.0-7.5) PH Ur Specific [place] (1.002-1.030) Urine Protein (NEGATIVE) mg/dL Urine Glucose (UA) (NEGATIVE) mg/dL Urine Ketones (NEGATIVE) mg/dL Urine Occult Blood (NEGATIVE) Urine Nitrite (NEGATIVE) Urine Bilirubin (NEGATIVE) Urine Urobilinogen (NORMAL) E.U./dL Ur Leukocyte Esterase (NEGATIVE) Urine RBC (0-5) /HPF Urine WBC (0-3) /HPF Ur Squamous Epith Cells (<= Few) Urine Crystals /LPF Urine Bacteria (None Seen) /HPF Ur Microscopic Review Urine Culture Comments Nasal Adenovirus (PCR) Nasal B. parapertussis DNA (PCR) Nasal Coronavir 229E PCR Nasal Coronavir HKU1 PCR Nasal Coronavir NL63 PCR Nasal Coronavir OC43 PCR Nasal Enterovir/Rhinovir PCR Nasal Influenza B PCR Nasal Influenza A PCR Nasal Parainfluen 1 PCR Nasal Parainfluen 2 PCR Nasal Parainfluen 3 PCR Nasal Parainfluen 4 PCR Nasal RSV (PCR) Nasal B.pertussis DNA PCR Nasal C.pneumoniae (PCR) Jacobo Human Metapneumo PCR Nasal M.pneumoniae (PCR) Nasal SARS-CoV-2 (PCR) 03/23/21 Range/Units 16:25 WBC 13.8 H (4.8-10.8) x10^3/uL RBC 4.73 (4.70-6.10) 10^6/uL Hgb 14.8 (14.0-18.0) g/dL Hct 43.2 (42.0-52.0) % MCV 91.3 (80.0-94.0) fL MCH 31.3 H (27.0-31.0) pg MCHC 34.3 (32.0-36.0) g/dL RDW 13.3 (12.0-15.0) % Plt Count 170 (130-450) 10^3/uL MPV 10.1 (7.4-11.4) fL Neut # (Auto) 12.9 H (1.5-6.6) 10^3/uL Lymph # (Auto) 0.3 L (1.5-3.5) 10^3/uL [place] # (Auto) 0.6 (0.0-1.0) 10^3/uL Eos # (Auto) 0.0 (0.0-0.7) 10^3/uL Baso # (Auto) 0.0 (0.0-0.1) 10^3/uL Absolute Nucleated RBC 0.00 x10^3/uL Total Counted Band Neuts % (Manual) (0 - 10) % Abnorm Lymph % (Manual) % Metamyelocytes % ( - 0) % Myelocytes % ( - 0) % Nucleated RBC % 0.0 /100WBC Neutrophils # (Manual) (1.5-6.6) 10^3/uL Lymphocytes # (Manual) (1.5-3.5) 10^3/uL Monocytes # (Manual) (0.0-1.0) 10^3/uL Eosinophils # (Manual) (0-0.7) 10^3/uL Basophils # (Manual) (0-0.1) 10^3/uL Differential Comment WBC Morphology (NORMAL) Platelet Estimate (NORMAL) Platelet Morphology (NORMAL) RBC Morph Micro Appear (NORMAL) Sodium (135-145) mmol/L Potassium (3.5-5.0) mmol/L Chloride (101-111) mmol/L Carbon Dioxide (21-32) mmol/L Anion Gap (6-13) BUN (6-20) mg/dL Creatinine (0.6-1.2) mg/dL Estimated GFR (MDRD) (>89) Glucose (70-100) mg/dL Lactic Acid (0.5-2.2) mmol/L Calcium (8.5-10.3) mg/dL Total Bilirubin (0.2-1.0) mg/dL AST (10-42) IU/L ALT (10-60) IU/L Alkaline Phosphatase (42-121) IU/L Troponin I High Sens (2.3-19.7) ng/L B-Natriuretic Peptide (5-100) pg/mL Total Protein (6.7-8.2) g/dL Albumin (3.2-5.5) g/dL Globulin (2.1-4.2) g/dL Albumin/Globulin Ratio (1.0-2.2) Lipase (22-51) U/L Urine Color Urine Clarity (CLEAR) Urine pH (5.0-7.5) PH Ur Specific [place] (1.002-1.030) Urine Protein (NEGATIVE) mg/dL Urine Glucose (UA) (NEGATIVE) mg/dL Urine Ketones (NEGATIVE) mg/dL Urine Occult Blood (NEGATIVE) Urine Nitrite (NEGATIVE) Urine Bilirubin (NEGATIVE) Urine Urobilinogen (NORMAL) E.U./dL Ur Leukocyte Esterase (NEGATIVE) Urine RBC (0-5) /HPF Urine WBC (0-3) /HPF Ur Squamous Epith Cells (<= Few) Urine Crystals /LPF Urine Bacteria (None Seen) /HPF Ur Microscopic Review Urine Culture Comments Nasal Adenovirus (PCR) Nasal B. parapertussis DNA (PCR) Nasal Coronavir 229E PCR Nasal Coronavir HKU1 PCR Nasal Coronavir NL63 PCR Nasal Coronavir OC43 PCR Nasal Enterovir/Rhinovir PCR Nasal Influenza B PCR Nasal Influenza A PCR Nasal Parainfluen 1 PCR Nasal Parainfluen 2 PCR Nasal Parainfluen 3 PCR Nasal Parainfluen 4 PCR Nasal RSV (PCR) Nasal B.pertussis DNA PCR Nasal C.pneumoniae (PCR) Jacobo Human Metapneumo PCR Nasal M.pneumoniae (PCR) Nasal SARS-CoV-2 (PCR) ABX Reporting Has patient been on IV antibiotics over the past 48 hours?: Yes Sepsis Event Note (H) - Evaluation Current Stage of Sepsis: Sepsis - Sepsis Criteria Sepsis Criteria: Recorded Heart Rate greater than 90 bpm, Recorded Respiratory Rate greater than 20, Respiratory: Increasing oxygen requirements, WBC count greater than 12,000 or less than 4000, Metabolic: lactate > 2 mmol/L Assessment/Plan - Problem List (1) Sepsis Impression: The concern is for sepsis which may be secondary to urinary tract infection or pneumonia. His urinalysis does reveal pyuria. CT was also concerning for possible atypical pneumonia. He is afebrile and although his white count is improved today, he does have 21% bands. We will keep him on cefepime and doxycycline which would cover for community-acquired pneumonia as well as potential urinary tract infection. Follow-up blood cultures. Lactic acid was rechecked this morning and is within normal limits. We will hold off on further IV fluids given concern for potential pulmonary edema due to the NSTEMI. Qualifiers: Sepsis type: sepsis due to unspecified organism Sepsis acute organ dysfunction status: without acute organ dysfunction Qualified Code(s): A41.9 - Sepsis, unspecified organism (2) Acute respiratory failure with hypoxia Impression: Hypoxic requiring supplemental oxygen. This may be secondary to the pneumonia and his sepsis or pulmonary edema due to the NSTEMI. His BNP is mildly elevated. CT did not reveal evidence of pulmonary embolism although it was a suboptimal study. We will continue antibiotics for community-acquired pneumonia as mentioned above. We will hold off on further IV fluids and consider further diuresis given concern for potential pulmonary edema. An echocardiogram has been ordered today. (3) NSTEMI (non-ST elevated myocardial infarction) Impression: Concern is for NSTEMI given his rising troponin. His EKG revealed right bundle branch block and there may have been subtle ST elevations in the inferior leads although this is difficult to interpret. Family has made it quite clear that he did not want aggressive measures or interventions and so we will medically manage this. He is on Lovenox 100 mg twice daily. Continue daily aspirin and beta-neha. He is also started on a statin. We will order an echocardiogram for today to look for wall motion abnormalities as although this would not climate change analyst, it can help in discussing the patient's overall prognosis. (4) UTI (urinary tract infection) Impression: We are concerned for potential urinary tract infection given the concern for sepsis. His urinalysis did reveal pyuria and bacteriuria. He is on ceftriaxone for this. We will broaden his antibiotics to cefepime given his severe illness. We will follow up urine culture and blood cultures. Qualifiers: Urinary tract infection type: site unspecified Hematuria presence: without hematuria Qualified Code(s): N39.0 - Urinary tract infection, site not specified (5) Pneumonia Impression: Concern is for pneumonia or pulmonary edema based off of imaging. Given the concern for sepsis we will treat empirically for community-acquired pneumonia. His QTC is prolonged we will have him on doxycycline and Cefepime. (6) Dementia Impression: He has advanced dementia for which she is on Aricept and Namenda. We will continue to hold these for the time being. Qualifiers: Dementia type: Alzheimer's Alzheimer's disease onset: late-onset Dementia behavioral disturbance: without behavioral disturbance Qualified Code(s): G30.1 - Alzheimer's disease with late onset; F02.80 - Dementia in other diseases classified elsewhere without behavioral disturbance
[2021-03-24] MEDS ORDERED: ENOXAPARIN 40 MG/0.4 ML SYRINGE SUBQ SCH (09:00)
[2021-03-24] MEDS: ENOXAPARIN 100 MG/ML SYRINGE SUBQ SCH ×2 (09:11→22:32)
[2021-03-24] MEDS: ASPIRIN CHEW 81 MG TABLET PO SCH (09:24)
[2021-03-24] MEDS: METOPROLOL TARTRATE 25 MG TABLET PO SCH ×2 (10:00→22:34)
[2021-03-24] MEDS: DOXYCYCLINE INJ 100 MG in SODIUM CHLORIDE 0.9% MINIBAG 100 ML IV SCH ×2 (10:19→22:27)
--- NOTE | 2021-03-24 11:21 | PHARMACY PROGRESS NOTE ---
- Best Possible Medication History Admit Date and Time: 03/23/212006 Processed by: Nursing Medication History completed: Yes As the person ultimately responsible for medication therapy, providers are able to order a medication from an existing home medication list in [facility] via the "Reconcile Routine" prior to Confirmation of that medication by [employer] ia[employer] intelligence support. Such practice is discouraged except when the physician, in their clinical judgment, deems that a medical need exists for a medication without regard to previous use.
[2021-03-24] MEDS: CEFEPIME 2 GM in SODIUM CHLORIDE 0.9% MINIBAG 100 ML IV SCH ×2 (11:31→21:14)
--- NOTE | 2021-03-24 13:07 | Ultrasound Report ---
PROCEDURE: Retroperitoneal INDICATIONS: UTI. Sepsis. ADRIÁN. TECHNIQUE: Real-time scanning was performed of the retroperitoneal organs, with image documentation. COMPARISON: None. FINDINGS: Kidneys: Kidneys are slightly atrophic. Right kidney measures 9.7 cm long; left kidney measures 11.1 cm long. Right renal cortical thickness is 1.8 cm; left renal cortical thickness is 1.4 cm. There is a minimal appearance of bilateral pelvocaliectasis. Right parapelvic cyst is noted measuring 2.1 x 1.2 x 1.2 mm. Left upper pole cyst is noted measuring 1.9 x 1.7 x 1.7 cm. Bladder: Prevoid volume 42 cc. Post void residual was not measured. Prostate gland measures 4.8 x 3.0 x 3.9 cm. Ureteral jets are not visualized. There is a focus of increased echogenicity at the base o f the bladder approximately 10mm, at the left ureterovesicular junction. There is an overall appearan ce of bladder wall trabeculations. IMPRESSION: 1. Overall appearance of bladder wall trabeculation suggestive of chronic outlet obstruction. 2. Focus of increased echogenicity possibly recently passed stone in the bladder. However, chronicity is indeterminate. 3. Minimal bilateral pelvocaliectasis. Reviewed by: Dalia Barrow MD on 03/24/2021 1:06 PM PDT Approved by: Dalia Barrow MD on 03/24/2021 1:06 PM PDT Station ID: [id number]
[2021-03-24] MEDS: ATORVASTATIN 40 MG TABLET PO SCH (22:34)
[2021-03-25] MEDS: SODIUM CHLORIDE FLUSH 0.9% 10 ML SYRINGE IVP SCH ×4 (00:58→23:50)
[2021-03-25] MEDS: MORPHINE 2 MG/ML CARPUJECT IVP PRN ×3 (04:51→23:50)
[2021-03-25] MEDS: SODIUM CHLORIDE FLUSH 0.9% 10 ML SYRINGE IVP PRN ×3 (04:58→23:55)
[2021-03-25 05:33] LABS: BASOPHILS % (AUTO) 0.2 %; HCT - HEMATOCRIT 40.7 % (42.0-52.0); HGB - HEMOGLOBIN 13.9 g/dL (14.0-18.0); LYMPHOCYTES % (AUTO) 6.8 %; MEAN CORPUSCULAR HEMOGLOBIN 30.8 pg (27.0-31.0); MEAN CORPUSCULAR HGB CONC 34.2 g/dL (32.0-36.0); MEAN PLATELET VOLUME 10.7 fL (7.4-11.4); NEUTROPHILS % (AUTO) 83.4 %; PLT - PLATELET COUNT 122 10^3/uL (130-450); RED BLOOD COUNT 4.52 10^6/uL (4.70-6.10); RED CELL DISTRIBUTION WIDTH 13.5 % (12.0-15.0); WHITE BLOOD COUNT 10.4 x10^3/uL (4.8-10.8)
[2021-03-25 05:38] LABS: ABNORMAL LYMPHS % (MANUAL) 0 %
[2021-03-25 05:40] LABS: CALCIUM 8.8 mg/dL (8.5-10.3); CREATININE 1.1 mg/dL (0.6-1.2); POTASSIUM 3.9 mmol/L (3.5-5.0)
[2021-03-25 06:18] LABS: BAND NEUTROPHILS % (MANUAL) 1 %; EOSINOPHILS # (MANUAL) 0.4 10^3/uL (0-0.7); LYMPHOCYTES # (MANUAL) 1.1 10^3/uL (1.5-3.5); LYMPHOCYTES % (MANUAL) 11 %; MONOCYTES # (MANUAL) 0.8 10^3/uL (0.0-1.0); PLATELET MORPHOLOGY NORMAL APPEARANCE (NORMAL); RBC MORPHOLOGY (MULTIPLE) NORMAL APPEARANCE (NORMAL)
[2021-03-25 06:19] LABS: DIFFERENTIAL COMMENT MANUAL DIFFERENTIAL; PLATELET ESTIMATE, MANUAL DECREASED (<130,000) (NORMAL); WBC MORPHOLOGY (MULTIPLE) NORMAL APPEARANCE (NORMAL)
[2021-03-25] MEDS: ASPIRIN CHEW 81 MG TABLET PO SCH (09:24)
[2021-03-25] MEDS: METOPROLOL TARTRATE 25 MG TABLET PO SCH ×2 (09:24→22:45)
[2021-03-25] MEDS: ENOXAPARIN 100 MG/ML SYRINGE SUBQ SCH ×2 (09:28→22:46)
[2021-03-25] MEDS: CEFEPIME 2 GM in SODIUM CHLORIDE 0.9% MINIBAG 100 ML IV SCH ×2 (09:49→20:08)
[2021-03-25] MEDS: DOXYCYCLINE INJ 100 MG in SODIUM CHLORIDE 0.9% MINIBAG 100 ML IV SCH ×2 (10:25→22:52)
[2021-03-25] MEDS: LACTOBACILLUS RHAMNOSUS GG CAPSULE PO SCH (17:27)
[2021-03-25] MEDS ORDERED: SODIUM CHLORIDE 0.9% 1,000 ML IV ONE (18:18)
--- NOTE | 2021-03-25 19:24 | PROVIDER PROGRESS NOTE ---
Assessment/Plan - Problem List (1) Sepsis Qualifiers: Sepsis type: sepsis due to unspecified organism Sepsis acute organ dysfunction status: without acute organ dysfunction Qualified Code(s): A41.9 - Sepsis, unspecified organism Assessment/Plan: It appears that he has a blood culture turned positive and the source may be pneumonia versus UTI. Continue with empiric IV antibiotics. Follow CBC daily. (2) Acute respiratory failure with hypoxia Assessment/Plan: Continue with O2 supplemental and treat the underlying pneumonia. The other concern is that he has CHF because of the high troponins. Echo to be done today to evaluate the LVEF (3) NSTEMI (non-ST elevated myocardial infarction) Assessment/Plan: He has probably ruled in for an NSTEMI by troponin elevation. He was started on aspirin daily, beta-neha continued, Lipitor started, therapeutic Lovenox started. Will await the Echo to evaluate the size of SC and whether he has CHF (4) Acute systolic heart failure Assessment/Plan: The echo result is just returned and LVEF is 35%. Will assure he is not getting IV fluids. He received Lasix x1. We will probably continue Lasix to diurese until he no longer needs supplemental O2 Follow I's and O's, daily weight, electrolytes and Mg. (5) UTI (urinary tract infection) Qualifiers: Urinary tract infection type: site unspecified Hematuria presence: without hematuria Qualified Code(s): N39.0 - Urinary tract infection, site not specified Assessment/Plan: The urine is turning positive for bacteria. Await identification and then sensitivities. Continue with empiric IV cefepime until those results are back (6) Aspiration pneumonia Qualifiers: Aspiration pneumonia type: due to gastric secretions Laterality: right Lung location: upper lobe of lung Qualified Code(s): J69.0 - Pneumonitis due to inhalation of food and vomit Assessment/Plan: As per history, after vomiting. He is on empiric doxycycline and IV cefepime This may also be the reason for needing supplemental oxygen. (7) Dementia Qualifiers: Dementia type: Alzheimer's Alzheimer's disease onset: late-onset Dementia behavioral disturbance: without behavioral disturbance Qualified Code(s): G30.1 - Alzheimer's disease with late onset; F02.80 - Dementia in other diseases classified elsewhere without behavioral disturbance Assessment/Plan: The describes that he is able to do ADLs but she has to help him out of bed. He eats independently, he sits and watches cartoons all day. The requested a palliative care consult while he is here, since she has been waiting for several weeks and was told the wait is 8 weeks now to be established with palliative care provider. - Current Meds Current Meds: Current Medications Generic Name Dose Route Start Last Admin Trade Name Freq PRN Reason Stop Dose Admin Acetaminophen 650 mg 03/23/21 20:07 03/23/21 23:53 Acetaminophen 325 Mg Tablet PO 650 mg Q4HR PRN Administration Pain 1 to 4 Atorvastatin Calcium 40 mg 03/23/21 21:00 03/24/21 22:34 Atorvastatin 40 Mg Tablet PO 40 mg QPM SKYLER Administration Enoxaparin Sodium 100 mg 03/24/21 09:00 03/25/21 09:28 Enoxaparin 100 Mg/Ml Syringe SUBQ 100 mg BID SKYLER Administration Doxycycline Hyclate 100 mg/ 100 mls @ 100 mls/hr 03/24/21 09:00 03/25/21 11:30 Sodium Chloride IV 03/29/21 08:59 Infused BID SKYLER Infusion Cefepime HCl 2 gm/ Sodium 100 mls @ 200 mls/hr 03/24/21 11:00 03/25/21 10:20 Chloride IV Infused BID SKYLER Infusion Lactobacillus Rhamnosus 1 cap 03/25/21 16:00 03/25/21 17:27 Lactobacillus Rhamnosus Gg Capsule PO 1 cap DAILY SKYLER Administration Metoprolol Tartrate 25 mg 03/23/21 21:00 03/25/21 09:24 Metoprolol Tartrate 25 Mg Tablet PO 25 mg BID SKYLER Administration Morphine Sulfate 2 mg 03/25/21 02:25 03/25/21 09:44 Morphine 2 Mg/Ml Carpuject IVP 2 mg Q2HR PRN Administration Shortness of Air/Wheezing Sodium Chloride 10 ml 03/23/21 20:07 03/25/21 09:44 Sodium Chloride Flush 0.9% 10 Ml Syringe IVP 10 ml PRN PRN Administration NEEDED PER PROVIDER ORDERS Sodium Chloride 10 ml 03/24/21 01:00 03/25/21 18:46 Sodium Chloride Flush 0.9% 10 Ml Syringe IVP Not Given 0100,0900,1700 SKYLER - Lab Result Fish Bone Diagrams: 03/26/21 06:10 03/26/21 06:10 - Additional Planning My Orders: My Active Orders 03/25/21 Palliative Care Consult [CONS] Routine 03/25/21 16:00 Lactobacillus Rhamnosus GG [Culturelle] 1 cap PO DAILY 03/25/21 Dinner Full Liquid Diet [DIET] 03/25/21 18:19 Notify Provider - Specific Ins [RC] PRN OCCULT BLOOD IN PAT. SINGLE [RAPID] Routine 03/25/21 18:31 FACTOR XA [COAG] Timed 03/26/21 Breakfast Dysphagia Puree Diet [DIET] Subjective - Subjective Patient Reports: Resting Comfortably, No Complaints Objective Vital Signs: Vital Signs - 24 hr 03/24/21 03/24/21 03/24/21 19:23 20:29 22:34 Temperature 36.2 C L Heart Rate [ 97 Brachial] Respiratory 30 H Rate Blood Pressure 124/69 Blood Pressure 181/89 H 124/69 [Left Brachial artery] Blood Pressure [Right Brachial artery] O2 Saturation 94 03/25/21 03/25/21 03/25/21 00:45 04:51 05:00 Temperature 36.3 C L 36.3 C L Heart Rate [ 85 87 Brachial] Respiratory 18 20 20 Rate Blood Pressure Blood Pressure [Left Brachial artery] Blood Pressure 131/78 H 144/88 H [Right Brachial artery] O2 Saturation 96 96 94 03/25/21 03/25/21 03/25/21 07:35 09:24 11:25 Temperature 36.6 C Heart Rate [ 88 Brachial] Respiratory 22 20 Rate Blood Pressure 167/95 H Blood Pressure [Left Brachial artery] Blood Pressure 149/69 H [Right Brachial artery] O2 Saturation 95 86 L 03/25/21 03/25/21 03/25/21 11:28 12:58 15:50 Temperature 36.5 C 36.5 C Heart Rate [ 95 88 Brachial] Respiratory 20 22 22 Rate Blood Pressure Blood Pressure 131/79 H [Left Brachial artery] Blood Pressure 132/103 H [Right Brachial artery] O2 Saturation 93 92 95 Oxygen O2 Source Oxymask I&O (Last 24 Hrs): Intake and Output Totals x24h 03/23/21 03/24/21 03/25/21 23:59 23:59 23:59 Intake Total 300 1746.667 620 Output Total 300 200 Balance 300 1446.667 420 General: Alert HEENT: EOMI, Mucous membr. moist/pink Neck: Supple, No JVD Neuro: Alert, Disoriented, Non Focal Cardiovascular: No murmurs Respiratory: No respiratory distress (but on O2 per mask) Abdomen: Soft Extremities: No edema - Results Results: Laboratory Results WBC 10.4 x10^3/uL (4.8-10.8) 03/25/21 05:20 RBC 4.52 10^6/uL (4.70-6.10) L 03/25/21 05:20 Hgb 13.9 g/dL (14.0-18.0) L 03/25/21 05:20 Hct 40.7 % (42.0-52.0) L 03/25/21 05:20 MCV 90.0 fL (80.0-94.0) 03/25/21 05:20 MCH 30.8 pg (27.0-31.0) 03/25/21 05:20 MCHC 34.2 g/dL (32.0-36.0) 03/25/21 05:20 RDW 13.5 % (12.0-15.0) 03/25/21 05:20 Plt Count 122 10^3/uL (130-450) L 03/25/21 05:20 MPV 10.7 fL (7.4-11.4) 03/25/21 05:20 Neut # (Auto) Not Reportable 03/25/21 05:20 Lymph # (Auto) Not Reportable 03/25/21 05:20 [place] # (Auto) Not Reportable 03/25/21 05:20 Eos # (Auto) Not Reportable 03/25/21 05:20 Baso # (Auto) Not Reportable 03/25/21 05:20 Absolute Nucleated RBC Not Reportable 03/25/21 05:20 Total Counted 100 03/25/21 05:20 Band Neuts % (Manual) 1 % (0-10) 03/25/21 05:20 Abnorm Lymph % (Manual) 0 % 03/25/21 05:20 Metamyelocytes % 2 % (-0) H 03/24/21 03:18 Myelocytes % 1 % (-0) H 03/24/21 03:18 Nucleated RBC % Not Reportable 03/25/21 05:20 Neutrophils # (Manual) 8.0 10^3/uL (1.5-6.6) H 03/25/21 05:20 Lymphocytes # (Manual) 1.1 10^3/uL (1.5-3.5) L 03/25/21 05:20 Monocytes # (Manual) 0.8 10^3/uL (0.0-1.0) 03/25/21 05:20 Eosinophils # (Manual) 0.4 10^3/uL (0-0.7) 03/25/21 05:20 Basophils # (Manual) 0.0 10^3/uL (0-0.1) 03/25/21 05:20 Differential Comment MANUAL DIFFERENTIAL 03/25/21 05:20 WBC Morphology NORMAL APPEARANCE (NORMAL) 03/25/21 05:20 Platelet Estimate DECREASED (<130,000) (NORMAL) 03/25/21 05:20 Platelet Morphology NORMAL APPEARANCE (NORMAL) 03/25/21 05:20 RBC Morph Micro Appear NORMAL APPEARANCE (NORMAL) 03/25/21 05:20 Sodium 136 mmol/L (135-145) 03/25/21 05:20 Potassium 3.9 mmol/L (3.5-5.0) 03/25/21 05:20 Chloride 105 mmol/L (101-111) 03/25/21 05:20 Carbon Dioxide 22 mmol/L (21-32) 03/25/21 05:20 Anion Gap 9.0 (6-13) 03/25/21 05:20 BUN 29 mg/dL (6-20) H 03/25/21 05:20 Creatinine 1.1 mg/dL (0.6-1.2) 03/25/21 05:20 Estimated GFR (MDRD) 64 (>89) L 03/25/21 05:20 Glucose 104 mg/dL (70-100) H 03/25/21 05:20 Lactic Acid 2.0 mmol/L (0.5-2.2) 03/24/21 07:36 Calcium 8.8 mg/dL (8.5-10.3) 03/25/21 05:20 Total Bilirubin 1.5 mg/dL (0.2-1.0) H 03/23/21 16:25 AST 35 IU/L (10-42) 03/23/21 16:25 ALT 21 IU/L (10-60) 03/23/21 16:25 Alkaline Phosphatase 108 IU/L (42-121) 03/23/21 16:25 Troponin I High Sens 217.3 ng/L (2.3-19.7) H* 03/24/21 19:25 B-Natriuretic Peptide 579 pg/mL (5-100) H 03/23/21 16:25 Total Protein 7.0 g/dL (6.7-8.2) 03/23/21 16:25 Albumin 3.6 g/dL (3.2-5.5) 03/23/21 16:25 Globulin 3.4 g/dL (2.1-4.2) 03/23/21 16:25 Albumin/Globulin Ratio 1.1 (1.0-2.2) 03/23/21 16:25 Lipase 24 U/L (22-51) 03/23/21 16:25 Urine Color YELLOW 03/23/21 19:10 Urine Clarity HAZY (CLEAR) 03/23/21 19:10 Urine pH 5.0 PH (5.0-7.5) 03/23/21 19:10 Ur Specific [place] >=1.030 (1.002-1.030) H 03/23/21 19:10 Urine Protein TRACE mg/dL (NEGATIVE) 03/23/21 19:10 Urine Glucose (UA) NEGATIVE mg/dL (NEGATIVE) 03/23/21 19:10 Urine Ketones TRACE mg/dL (NEGATIVE) 03/23/21 19:10 Urine Occult Blood MODERATE (NEGATIVE) H 03/23/21 19:10 Urine Nitrite POSITIVE (NEGATIVE) H 03/23/21 19:10 Urine Bilirubin NEGATIVE (NEGATIVE) 03/23/21 19:10 Urine Urobilinogen 0.2 (NORMAL) E.U./dL (NORMAL) 03/23/21 19:10 Ur Leukocyte Esterase SMALL (NEGATIVE) H 03/23/21 19:10 Urine RBC 6-10 /HPF (0-5) H 03/23/21 19:10 Urine WBC 11-25 /HPF (0-3) H 03/23/21 19:10 Ur Squamous Epith Cells NONE SEEN (<= Few) 03/23/21 19:10 Urine Crystals 11-25 Ca Oxalate /LPF 03/23/21 19:10 Urine Bacteria Many /HPF (None Seen) H 03/23/21 19:10 Ur Microscopic Review INDICATED 03/23/21 19:10 Urine Culture Comments INDICATED 03/23/21 19:10 Nasal Adenovirus (PCR) NOT DETECTED 03/23/21 20:20 Nasal B. parapertussis DNA (PCR) NOT DETECTED 03/23/21 20:20 Nasal Coronavir 229E PCR NOT DETECTED 03/23/21 20:20 Nasal Coronavir HKU1 PCR NOT DETECTED 03/23/21 20:20 Nasal Coronavir NL63 PCR NOT DETECTED 03/23/21 20:20 Nasal Coronavir OC43 PCR NOT DETECTED 03/23/21 20:20 Nasal Enterovir/Rhinovir PCR NOT DETECTED 03/23/21 20:20 Nasal Influenza B PCR NOT DETECTED 03/23/21 20:20 Nasal Influenza A PCR NOT DETECTED 03/23/21 20:20 Nasal Parainfluen 1 PCR NOT DETECTED 03/23/21 20:20 Nasal Parainfluen 2 PCR NOT DETECTED 03/23/21 20:20 Nasal Parainfluen 3 PCR NOT DETECTED 03/23/21 20:20 Nasal Parainfluen 4 PCR NOT DETECTED 03/23/21 20:20 Nasal RSV (PCR) NOT DETECTED 03/23/21 20:20 Nasal B.pertussis DNA PCR NOT DETECTED 03/23/21 20:20 Nasal C.pneumoniae (PCR) NOT DETECTED 03/23/21 20:20 [place] Human Metapneumo PCR NOT DETECTED 03/23/21 20:20 Nasal M.pneumoniae (PCR) NOT DETECTED 03/23/21 20:20 Nasal SARS-CoV-2 (PCR) NOT DETECTED 03/23/21 20:20 Sepsis Event Note (H) - Evaluation Current Stage of Sepsis: Sepsis - Sepsis Criteria Sepsis Criteria: Recorded Heart Rate greater than 90 bpm, Recorded Respiratory Rate greater than 20, Respiratory: Increasing oxygen requirements, WBC count greater than 12,000 or less than 4000, Metabolic: lactate > 2 mmol/L
[2021-03-25] MEDS: ATORVASTATIN 40 MG TABLET PO SCH (22:46)
[2021-03-26 06:37] LABS: BASOPHILS % (AUTO) 0.3 %; EOSINOPHILS % (AUTO) 0.2 %; HCT - HEMATOCRIT 41.4 % (42.0-52.0); HGB - HEMOGLOBIN 13.9 g/dL (14.0-18.0); LYMPHOCYTES # (AUTO) 0.6 10^3/uL (1.5-3.5); LYMPHOCYTES % (AUTO) 6.4 %; MEAN CORPUSCULAR HEMOGLOBIN 30.8 pg (27.0-31.0); MEAN CORPUSCULAR HGB CONC 33.6 g/dL (32.0-36.0); MEAN CORPUSCULAR VOLUME 91.8 fL (80.0-94.0); MEAN PLATELET VOLUME 11.2 fL (7.4-11.4); MONOCYTES # (AUTO) 0.7 10^3/uL (0.0-1.0); MONOCYTES % (AUTO) 7.3 %; NEUTROPHILS # (AUTO) 8.5 10^3/uL (1.5-6.6); NEUTROPHILS % (AUTO) 85.3 %; PLT - PLATELET COUNT 132 10^3/uL (130-450); RED BLOOD COUNT 4.51 10^6/uL (4.70-6.10); RED CELL DISTRIBUTION WIDTH 13.7 % (12.0-15.0)
[2021-03-26 06:41] LABS: CALCIUM 9.4 mg/dL (8.5-10.3); POTASSIUM 3.8 mmol/L (3.5-5.0)
[2021-03-26] MEDS: SODIUM CHLORIDE FLUSH 0.9% 10 ML SYRINGE IVP SCH ×2 (08:19→18:53)
[2021-03-26] MEDS: CEFEPIME 2 GM in SODIUM CHLORIDE 0.9% MINIBAG 100 ML IV SCH (08:19)
[2021-03-26] MEDS: METOPROLOL TARTRATE 25 MG TABLET PO SCH ×2 (08:19→20:25)
[2021-03-26] MEDS: LACTOBACILLUS RHAMNOSUS GG CAPSULE PO SCH (08:19)
[2021-03-26] MEDS: MORPHINE 2 MG/ML CARPUJECT IVP PRN ×3 (09:04→20:35)
[2021-03-26] MEDS: DOXYCYCLINE INJ 100 MG in SODIUM CHLORIDE 0.9% MINIBAG 100 ML IV SCH ×2 (09:33→21:46)
[2021-03-26] MEDS: ENOXAPARIN 100 MG/ML SYRINGE SUBQ SCH ×2 (10:01→20:26)
[2021-03-26] MEDS: ASPIRIN EC 81 MG TABLET PO SCH (12:38)
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
--- NOTE | 2021-03-26 16:39 | PROVIDER PROGRESS NOTE ---
Assessment/Plan - Problem List (1) Bacteremia Assessment/Plan: The blood culture was identified as growing Klebsiella. (Urine culture growing Klebsiella and Proteus). Both are susceptible to ceftriaxone. We will stop cefepime and start ceftriaxone IV. He may need a 2-week total course of treatment IV and today was day 4. He may need a PICC line inserted and arrangements made for where to get 10 more days of IV ceftriaxone. (2) Acute respiratory failure with hypoxia Assessment/Plan: His LVEF was documented at 35% by echo done yesterday. He is still requiring high levels of supplemental oxygen. We will start oral daily Lasix in order to get gentle diuresis to try to taper him down to room air. He is not yet ready for discharge because of oxygen needs and needing IV antibiotics (3) Afib Assessment/Plan: The heart rate was 120-130 this morning until his morning beta-neha dose was effective at midday when heart rate improved to 60-100. If he had A. fib before this admission. The admission EKG did show A. fib here. EKG was done today to look for any changes. This did show A. fib with RVR, otherwise no changes from the admission EKG This patient has a CHADS2 score of 2-3 (CHF, age greater than 79, possibly a prior stroke). He is not a candidate for anticoagulation however because of his very high risk of falls since he still ambulates and is very unsteady. We will continue with daily aspirin going forward. (4) NSTEMI (non-ST elevated myocardial infarction) Assessment/Plan: His troponins here increased and the echo did show an abnormally low EF of 35%. Continue daily aspirin and B-neha. After today he will have received 48 hours of therapeutic Lovenox and will stop the Lovenox. He is not a candidate for transfer for coronary intervention because of his marked dementia. (5) Acute systolic heart failure Assessment/Plan: The Echo done yesterday did show an abnormally low EF of 35%, this is new. Continue with daily beta-neha. Begin daily p.o. Lasix and spironolactone. We will continue doxycycline empirically since the chest x-ray was first read as possible pneumonia and there is a suspicion of aspiration (6) UTI (urinary tract infection) Qualifiers: Urinary tract infection type: site unspecified Hematuria presence: without hematuria Qualified Code(s): N39.0 - Urinary tract infection, site not specified Assessment/Plan: The urine culture is growing Klebsiella and Proteus, these are both susceptible to ceftriaxone. We will stop his IV cefepime and changed to daily IV ceftriaxone. 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 There appeared to be no behavioral abnormalities. The is to meet with palliative care provider Radha Waite NP today here, since she has been waiting for outpatient appointment for many weeks already. (9) Sepsis Qualifiers: Sepsis type: sepsis due to unspecified organism Sepsis acute organ dysfunct ion status: without acute organ dysfunction Qualified Code(s): A41.9 - Sepsis, unspecified organism Assessment/Plan: Resolved - Current Meds Current Meds: Current Medications Generic Name Dose Route Start Last Admin Trade Name Freq PRN Reason Stop Dose Admin Acetaminophen 650 mg 03/23/21 20:07 03/23/21 23:53 Acetaminophen 325 Mg Tablet PO 650 mg Q4HR PRN Administration Pain 1 to 4 Aspirin 81 mg 03/26/21 12:00 03/26/21 12:38 Aspirin Ec 81 Mg Tablet PO 81 mg DAILY SKYLER Administration Atorvastatin Calcium 40 mg 03/23/21 21:00 03/25/21 22:46 Atorvastatin 40 Mg Tablet PO 40 mg QPM SKYLER Administration Enoxaparin Sodium 100 mg 03/24/21 09:00 03/26/21 10:01 Enoxaparin 100 Mg/Ml Syringe SUBQ 03/26/21 23:59 100 mg BID SKYLER Administration Doxycycline Hyclate 100 mg/ 100 mls @ 100 mls/hr 03/24/21 09:00 03/26/21 10:45 Sodium Chloride IV 03/29/21 08:59 Infused BID SKYLER Infusion Lactobacillus Rhamnosus 1 cap 03/25/21 16:00 03/26/21 08:19 Lactobacillus Rhamnosus Gg Capsule PO 1 cap DAILY SKYLER Administration Metoprolol Tartrate 25 mg 03/23/21 21:00 03/26/21 08:19 Metoprolol Tartrate 25 Mg Tablet PO 25 mg BID SKYLER Administration Morphine Sulfate 2 mg 03/25/21 02:25 03/26/21 13:53 Morphine 2 Mg/Ml Carpuject IVP 2 mg Q2HR PRN Administration Shortness of Air/Wheezing Sodium Chloride 10 ml 03/23/21 20:07 03/25/21 23:55 Sodium Chloride Flush 0.9% 10 Ml Syringe IVP 10 ml PRN PRN Administration NEEDED PER PROVIDER ORDERS Sodium Chloride 10 ml 03/24/21 01:00 03/26/21 08:19 Sodium Chloride Flush 0.9% 10 Ml Syringe IVP 10 ml 0100,0900,1700 SKYLER Administration - Lab Result Fish Bone Diagrams: 03/26/21 06:10 03/26/21 06:10 - EKG Results EKG Interpreted Independently: Yes EKG Comparison: Changed from prior EKG EKG Findings: A. fib with RVR, rate 121, right bundle branch block, unchanged from echo of 03/23/2021 except RVR is new. - Additional Planning My Orders: My Active Orders 03/25/21 16:00 Lactobacillus Rhamnosus GG [Culturelle] 1 cap PO DAILY 03/25/21 18:19 Notify Provider - Specific Ins [RC] PRN 03/26/21 Evaluate and Treat OT [OT] Routine Evaluate and Treat PT [PT] Routine 03/26/21 Breakfast Dysphagia Puree Diet [DIET] 03/26/21 11:00 Telemetry- [RC] Q4HR 03/26/21 12:00 Aspirin EC [Ecotrin] 81 mg PO DAILY 03/27/21 05:00 BMP - BASIC METABOLIC PANEL [CHEM] DAILYLAB CBC - COMP BLD CT W/AUTO DIFF [HEME] DAILYLAB MAGNESIUM [CHEM] DAILYLAB 03/27/21 09:00 Furosemide [Lasix] 20 mg PO DAILY cefTRIAXone [Rocephin] 2 gm Sodium Chloride 0.9% Minibag [Normal Saline 0.9% Minibag] 100 ml IV DAILY Subjective - Subjective Patient Reports: Resting Comfortably, No Complaints Objective Vital Signs: Vital Signs - 24 hr 07/03/25/21 03/26/21 20:00 22:45 00:15 Temperature 36.4 C L 36.3 C L Heart Rate [ 88 95 Brachial] Heart Rate [ Monitoring electrodes] Heart Rate [ Sitting] Heart Rate [ Supine] Respiratory 22 22 Rate Blood Pressure 149/94 H Blood Pressure 149/94 H [Left Brachial artery] Blood Pressure 136/107 H 146/97 H [Right Brachial artery] Blood Pressure [Sitting] Blood Pressure [Supine] O2 Saturation 95 97 03/26/21 03/26/21 03/26/21 04:14 08:05 11:00 Temperature 36.8 C 36.7 C Heart Rate [ 90 97 136 H Brachial] Heart Rate [ Monitoring electrodes] Heart Rate [ Sitting] Heart Rate [ Supine] Respiratory 20 24 22 Rate Blood Pressure Blood Pressure 140/80 H [Left Brachial artery] Blood Pressure 147/81 H 144/85 H [Right Brachial artery] Blood Pressure [Sitting] Blood Pressure [Supine] O2 Saturation 94 94 94 03/26/21 03/26/21 03/26/21 12:15 12:45 15:39 Temperature 36.2 C L 36.2 C L Heart Rate [ Brachial] Heart Rate [ 94 74 Monitoring electrodes] Heart Rate [ 76 Sitting] Heart Rate [ 55 L Supine] Respiratory 24 24 Rate Blood Pressure Blood Pressure 140/100 H 142/83 H [Left Brachial artery] Blood Pressure [Right Brachial artery] Blood Pressure 149/114 H [Sitting] Blood Pressure 153/92 H [Supine] O2 Saturation 96 94 Oxygen O2 Source Oxymask I&O (Last 24 Hrs): Intake and Output Totals x24h 03/24/21 03/25/21 03/26/21 23:59 23:59 23:59 Intake Total 1746.667 820 680 Output Total 300 200 Balance 1446.667 620 680 General: Alert, No acute distress HEENT: EOMI, Mucous membr. moist/pink Neck: Supple, No JVD Neuro: Alert, Disoriented, Non Focal Cardiovascular: No murmurs, Other (Rate tachy this morning) Respiratory: No respiratory distress (but wearing a ventimask) Abdomen: Soft Extremities: No clubbing, No edema - Results Results: Laboratory Results WBC 10.0 x10^3/uL (4.8-10.8) 03/26/21 06:10 RBC 4.51 10^6/uL (4.70-6.10) L 03/26/21 06:10 Hgb 13.9 g/dL (14.0-18.0) L 03/26/21 06:10 Hct 41.4 % (42.0-52.0) L 03/26/21 06:10 MCV 91.8 fL (80.0-94.0) 03/26/21 06:10 MCH 30.8 pg (27.0-31.0) 03/26/21 06:10 MCHC 33.6 g/dL (32.0-36.0) 03/26/21 06:10 RDW 13.7 % (12.0-15.0) 03/26/21 06:10 Plt Count 132 10^3/uL (130-450) 03/26/21 06:10 MPV 11.2 fL (7.4-11.4) 03/26/21 06:10 Neut # (Auto) 8.5 10^3/uL (1.5-6.6) H 03/26/21 06:10 Lymph # (Auto) 0.6 10^3/uL (1.5-3.5) L 03/26/21 06:10 [place] # (Auto) 0.7 10^3/uL (0.0-1.0) 03/26/21 06:10 Eos # (Auto) 0.0 10^3/uL (0.0-0.7) 03/26/21 06:10 Baso # (Auto) 0.0 10^3/uL (0.0-0.1) 03/26/21 06:10 Absolute Nucleated RBC 0.00 x10^3/uL 03/26/21 06:10 Total Counted 100 03/25/21 05:20 Band Neuts % (Manual) 1 % (0-10) 03/25/21 05:20 Abnorm Lymph % (Manual) 0 % 03/25/21 05:20 Metamyelocytes % 2 % (-0) H 03/24/21 03:18 Myelocytes % 1 % (-0) H 03/24/21 03:18 Nucleated RBC % 0.0 /100WBC 03/26/21 06:10 Neutrophils # (Manual) 8.0 10^3/uL (1.5-6.6) H 03/25/21 05:20 Lymphocytes # (Manual) 1.1 10^3/uL (1.5-3.5) L 03/25/21 05:20 Monocytes # (Manual) 0.8 10^3/uL (0.0-1.0) 03/25/21 05:20 Eosinophils # (Manual) 0.4 10^3/uL (0-0.7) 03/25/21 05:20 Basophils # (Manual) 0.0 10^3/uL (0-0.1) 03/25/21 05:20 Differential Comment MANUAL DIFFERENTIAL 03/25/21 05:20 WBC Morphology NORMAL APPEARANCE (NORMAL) 03/25/21 05:20 Platelet Estimate DECREASED (<130,000) (NORMAL) 03/25/21 05:20 Platelet Morphology NORMAL APPEARANCE (NORMAL) 03/25/21 05:20 RBC Morph Micro Appear NORMAL APPEARANCE (NORMAL) 03/25/21 05:20 Anti-Xa Level 0.4 U/mL (-0.7) 03/25/21 18:31 Sodium 136 mmol/L (135-145) 03/26/21 06:10 Potassium 3.8 mmol/L (3.5-5.0) 03/26/21 06:10 Chloride 103 mmol/L (101-111) 03/26/21 06:10 Carbon Dioxide 25 mmol/L (21-32) 03/26/21 06:10 Anion Gap 8.0 (6-13) 03/26/21 06:10 BUN 31 mg/dL (6-20) H 03/26/21 06:10 Creatinine 1.0 mg/dL (0.6-1.2) 03/26/21 06:10 Estimated GFR (MDRD) 71 (>89) L 03/26/21 06:10 Glucose 104 mg/dL (70-100) H 03/26/21 06:10 Lactic Acid 2.0 mmol/L (0.5-2.2) 03/24/21 07:36 Calcium 9.4 mg/dL (8.5-10.3) 03/26/21 06:10 Total Bilirubin 1.5 mg/dL (0.2-1.0) H 03/23/21 16:25 AST 35 IU/L (10-42) 03/23/21 16:25 ALT 21 IU/L (10-60) 03/23/21 16:25 Alkaline Phosphatase 108 IU/L (42-121) 03/23/21 16:25 Troponin I High Sens 217.3 ng/L (2.3-19.7) H* 03/24/21 19:25 B-Natriuretic Peptide 579 pg/mL (5-100) H 03/23/21 16:25 Total Protein 7.0 g/dL (6.7-8.2) 03/23/21 16:25 Albumin 3.6 g/dL (3.2-5.5) 03/23/21 16:25 Globulin 3.4 g/dL (2.1-4.2) 03/23/21 16:25 Albumin/Globulin Ratio 1.1 (1.0-2.2) 03/23/21 16:25 Lipase 24 U/L (22-51) 03/23/21 16:25 Urine Color YELLOW 03/23/21 19:10 Urine Clarity HAZY (CLEAR) 03/23/21 19:10 Urine pH 5.0 PH (5.0-7.5) 03/23/21 19:10 Ur Specific [place] >=1.030 (1.002-1.030) H 03/23/21 19:10 Urine Protein TRACE mg/dL (NEGATIVE) 03/23/21 19:10 Urine Glucose (UA) NEGATIVE mg/dL (NEGATIVE) 03/23/21 19:10 Urine Ketones TRACE mg/dL (NEGATIVE) 03/23/21 19:10 Urine Occult Blood MODERATE (NEGATIVE) H 03/23/21 19:10 Urine Nitrite POSITIVE (NEGATIVE) H 03/23/21 19:10 Urine Bilirubin NEGATIVE (NEGATIVE) 03/23/21 19:10 Urine Urobilinogen 0.2 (NORMAL) E.U./dL (NORMAL) 03/23/21 19:10 Ur Leukocyte Esterase SMALL (NEGATIVE) H 03/23/21 19:10 Urine RBC 6-10 /HPF (0-5) H 03/23/21 19:10 Urine WBC 11-25 /HPF (0-3) H 03/23/21 19:10 Ur Squamous Epith Cells NONE SEEN (<= Few) 03/23/21 19:10 Urine Crystals 11-25 Ca Oxalate /LPF 03/23/21 19:10 Urine Bacteria Many /HPF (None Seen) H 03/23/21 19:10 Ur Microscopic Review INDICATED 03/23/21 19:10 Urine Culture Comments INDICATED 03/23/21 19:10 Nasal Adenovirus (PCR) NOT DETECTED 03/23/21 20:20 Nasal B. parapertussis DNA (PCR) NOT DETECTED 03/23/21 20:20 Nasal Coronavir 229E PCR NOT DETECTED 03/23/21 20:20 Nasal Coronavir HKU1 PCR NOT DETECTED 03/23/21 20:20 Nasal Coronavir NL63 PCR NOT DETECTED 03/23/21 20:20 Nasal Coronavir OC43 PCR NOT DETECTED 03/23/21 20:20 Nasal Enterovir/Rhinovir PCR NOT DETECTED 03/23/21 20:20 Nasal Influenza B PCR NOT DETECTED 03/23/21 20:20 Nasal Influenza A PCR NOT DETECTED 03/23/21 20:20 Nasal Parainfluen 1 PCR NOT DETECTED 03/23/21 20:20 Nasal Parainfluen 2 PCR NOT DETECTED 03/23/21 20:20 Nasal Parainfluen 3 PCR NOT DETECTED 03/23/21 20:20 Nasal Parainfluen 4 PCR NOT DETECTED 03/23/21 20:20 Nasal RSV (PCR) NOT DETECTED 03/23/21 20:20 Nasal B.pertussis DNA PCR NOT DETECTED 03/23/21 20:20 Nasal C.pneumoniae (PCR) NOT DETECTED 03/23/21 20:20 Jacobo Human Metapneumo PCR NOT DETECTED 03/23/21 20:20 Nasal M.pneumoniae (PCR) NOT DETECTED 03/23/21 20:20 Nasal SARS-CoV-2 (PCR) NOT DETECTED 03/23/21 20:20 Sepsis Event Note (H) - Evaluation Current Stage of Sepsis: Sepsis - Sepsis Criteria Sepsis Criteria: Recorded Heart Rate greater than 90 bpm, Recorded Respiratory Rate greater than 20, Respiratory: Increasing oxygen requirements, WBC count greater than 12,000 or less than 4000, Metabolic: lactate > 2 mmol/L
[2021-03-26] MEDS: ATORVASTATIN 40 MG TABLET PO SCH (20:25)
[2021-03-27] MEDS: SODIUM CHLORIDE FLUSH 0.9% 10 ML SYRINGE IVP SCH ×3 (00:42→18:13)
[2021-03-27 05:27] LABS: BASOPHILS % (AUTO) 0.3 %; EOSINOPHILS # (AUTO) 0.1 10^3/uL (0.0-0.7); EOSINOPHILS % (AUTO) 0.5 %; HCT - HEMATOCRIT 43.4 % (42.0-52.0); HGB - HEMOGLOBIN 14.5 g/dL (14.0-18.0); LYMPHOCYTES # (AUTO) 0.9 10^3/uL (1.5-3.5); LYMPHOCYTES % (AUTO) 7.8 %; MEAN CORPUSCULAR HEMOGLOBIN 30.7 pg (27.0-31.0); MEAN CORPUSCULAR HGB CONC 33.4 g/dL (32.0-36.0); MEAN CORPUSCULAR VOLUME 91.8 fL (80.0-94.0); MEAN PLATELET VOLUME 10.6 fL (7.4-11.4); MONOCYTES % (AUTO) 8.5 %; NEUTROPHILS # (AUTO) 9.9 10^3/uL (1.5-6.6); NEUTROPHILS % (AUTO) 82.5 %; PLT - PLATELET COUNT 146 10^3/uL (130-450); RED BLOOD COUNT 4.73 10^6/uL (4.70-6.10); RED CELL DISTRIBUTION WIDTH 13.6 % (12.0-15.0); WHITE BLOOD COUNT 12.1 x10^3/uL (4.8-10.8)
[2021-03-27 05:35] LABS: CALCIUM 9.5 mg/dL (8.5-10.3); CREATININE 1.1 mg/dL (0.6-1.2); POTASSIUM 3.6 mmol/L (3.5-5.0)
--- NOTE | 2021-03-27 08:25 | XRAY Report ---
PROCEDURE: Chest 1 View X-Ray INDICATIONS: CHF vs aspiration PNA TECHNIQUE: One view of the chest was acquired. COMPARISON: 03/23/2021. FINDINGS: Surgical changes and devices: None. Lungs and pleura: Bilateral perihilar opacities and interstitial prominence noted most compatible wit h CHF. Small left-sided pleural fluid collection. Mediastinum: Mediastinal contours appear normal. Heart size is normal. Bones and chest wall: No suspicious bony lesions. Overlying soft tissues appear unremarkable. IMPRESSION: Probable CHF. Reviewed by: Trice Patrick MD, PhD on 03/27/2021 8:24 AM PDT Approved by: Trice Partick MD, PhD on 03/27/2021 8:24 AM PDT Station ID: [id number]
[2021-03-27] MEDS ORDERED: FUROSEMIDE 20 MG TABLET PO SCH (09:00)
[2021-03-27] MEDS ORDERED: FUROSEMIDE 20 MG/2 ML VIAL IVP SCH (09:00)
[2021-03-27] MEDS: cefTRIAXone 2 GM in SODIUM CHLORIDE 0.9% MINIBAG 100 ML IV SCH (09:01)
[2021-03-27] MEDS: LACTOBACILLUS RHAMNOSUS GG CAPSULE PO SCH (09:04)
[2021-03-27] MEDS: METOPROLOL TARTRATE 25 MG TABLET PO SCH (09:04)
[2021-03-27] MEDS: SPIRONOLACTONE 25 MG TABLET PO SCH (09:04)
[2021-03-27] MEDS: ASPIRIN EC 81 MG TABLET PO SCH (09:04)
--- NOTE | 2021-03-27 09:24 | CONSULTATION NOTE ---
Palliative Care Follow Up - Referral Referring Provider: Brigitte Rousseau MD Time of Visit: [id number]; Referral setting: Hospitalized patient Referral Reason: Goals of Care/Acute respiratory failure/CHF - Information Sources Records reviewed: Previous records reviewed History/Review of Systems obtained from: Family ( Bonnie) Exam limitations: Clinical condition (patient more bright; few verbalizations today) - History of Present Illness Update Brief HPI Update: Please see previous HPI 03/26/2021. This is an 85-year-old gentleman who continues to do poorly, his blood cultures were identified as growing Klebsiella, they are changing of his antibiotics to ceftriaxone. Patient though continues to be in significant respiratory distress, he did have an echo with his LVEF documented 35%, still requiring high levels of oxygen, and with most recent chest x-ray confirmed CHF. Orders for diuresis in process. He has now confirmed to have had and NSTEMI, New diagnosis of A. fib, as well as presumed aspiration pneumonia. Patient does present with respiratory distress, reports when asked how he feels "miserable". He does appear quite uncomfortable, and does choke with fluids, reports this is more than his baseline coughing, though at home when eating or drinking did have significant cough. He does appear little bit more bright and able to engage, is not sure that he recognizes her, but he is quite engaging and cooperative. He does appear quite frail, his WBCs are up today, and meeting wit h again to review current status and continuing developing goals of care. Her biggest concern is that he be comfortable, she does recognize his frailty, and after discussion with her family and son, is aware she is unable to care for him again at home. [facility] as his family would be more accessible and easier for her for travel. Past Medical History: Hypertension, high cholesterol, chronic cough from GERD, Alzheimer's, peripheral neuropathy/idiopathic progressive, multiple falls with fractures, newly diagnosed thoracic compression fracture T7 01/2021, s/p hemicolectomy for large tubulovillous adenoma, depression, osteoarthritis, fatigue, chronic back pain, cervical and lumbar spinal stenosis, Social History - Living Situation Living arrangement: At home Living Situation: With spouse/s.o. Support System: Patient and his have been over 40 years. Patient does have 2 sons, his 1 son was here yesterday so aware of patient's fragile condition. The other son somewhat more estranged. She does not feel with his decline in functional status and worsening cognitive status that she would be able to meet his care needs at home, she does have support from family to transition him to another setting. Patient does not provide any recognition or insight into conversation that is happening regarding this, she did tell him there would be another place for him to get care after the hospital. Medications/Allergies - Medications Active Medication List: Active Medications Acetaminophen (Acetaminophen 325 Mg Tablet) 650 mg PO Q4HR PRN PRN Reason: Pain 1 to 4 Last Admin: 03/23/21 23:53 Dose: 650 mg Documented by: Aspirin (Aspirin Ec 81 Mg Tablet) 81 mg PO DAILY [facility] Last Admin: 03/27/21 09:04 Dose: 81 mg Documented by: Atorvastatin Calcium (Atorvastatin 40 Mg Tablet) 40 mg PO QPM [facility] Last Admin: 03/26/21 20:25 Dose: 40 mg Documented by: Furosemide (Furosemide 20 Mg/2 Ml Vial) 20 mg IVP DAILY [facility] Last Admin: 03/27/21 09:04 Dose: 20 mg Documented by: Doxycycline Hyclate 100 mg/ (Sodium Chloride) 100 mls @ 100 mls/hr IV BID [facility] Stop: 03/29/21 08:59 Last Infusion: 03/26/21 22:51 Dose: Infused Documented by: Ceftriaxone Sodium 2 gm/ (Sodium Chloride) 100 mls @ 200 mls/hr IV DAILY [facility] Last Admin: 03/27/21 09:01 Dose: 200 mls/hr Documented by: Lactobacillus Rhamnosus (Lactobacillus Rhamnosus Gg Capsule) 1 cap PO DAILY [facility] Last Admin: 03/27/21 09:04 Dose: 1 cap Documented by: Metoprolol Tartrate (Metoprolol Tartrate 25 Mg Tablet) 25 mg PO BID [facility] Last Admin: 03/27/21 09:04 Dose: 25 mg Documented by: Morphine Sulfate (Morphine 2 Mg/Ml Carpuject) 2 mg IVP Q2HR PRN PRN Reason: Shortness of Air/Wheezing Last Admin: 03/26/21 20:35 Dose: 2 mg Documented by: Multi-Ingredient Ointment (Zinc Oxide 20% Oint 30 Gm Tube) 1 applic TOP PRN PRN PRN Reason: Skin Care Ondansetron HCl (Ondansetron Odt 4 Mg Tablet) 4 mg TL Q6HR PRN PRN Reason: Nausea / Vomiting Ondansetron HCl (Ondansetron 4 Mg/2 Ml Vial) 4 mg IVP Q6HR PRN PRN Reason: Nausea / Vomiting Oxycodone HCl (Oxycodone 5 Mg Tablet) 5 mg PO Q4HR PRN PRN Reason: Pain 5 to 7 Sodium Chloride (Sodium Chloride Flush 0.9% 10 Ml Syringe) 10 ml IVP PRN PRN PRN Reason: NEEDED PER PROVIDER ORDERS Last Admin: 03/25/21 23:55 Dose: 10 ml Documented by: Sodium Chloride (Sodium Chloride Flush 0.9% 10 Ml Syringe) 10 ml IVP 0100,0900,1700 [facility] Last Admin: 03/27/21 00:42 Dose: 10 ml Documented by: Spironolactone (Spironolactone 25 Mg Tablet) 25 mg PO DAILY [facility] Last Admin: 03/27/21 09:04 Dose: 25 mg Documented by: Donepezil HCl [Aricept] 10 mg DAILY 09/05/17 Memantine HCl 10 mg PO DAILY 09/05/17 Acetaminophen/Diphenhydramine [[facility] Pain Relief Pm Caplet] 2 tab PO HS 03/23/21 Meloxicam [Mobic] 1 tab PO DAILY 03/23/21 Naproxen [Naprosyn] 1 tab PO DAILY 03/23/21 Omeprazole 1 tab PO DAILY 03/23/21 amLODIPine [Norvasc] 2.5 mg PO DAILY 03/23/21 - Allergies Allergies/Adverse Reactions: Allergies Allergy/AdvReac Type Severity Reaction Status Date / Time No Known Drug Allergies Allergy Verified 03/23/21 16:28 Review of Systems - Constitutional Constitutional: reports: Fatigue, Weakness. denies: Fever - Ears, Nose & Throat Ears, Nose & Throat: reports: Dry mouth - Cardiovascular Cardiovascular: reports: Exertional dyspnea - Respiratory Respiratory: reports: Cough ( notes worsening; never this bad and no respiratory distress; worsening today noted significant with swallowing of thin fluids), SOB at rest, SOB with exertion - Genitourinary Genitourinary: reports: Incontinence - Musculoskeletal Musculoskeletal: reports: Back pain, Stiffness, Limited range of motion, Muscle weakness, Transfer issues ( not a candidate for rehab with dementia and decline; has been transfered to the chair with max assist) - Integumentary Integumentary: reports: Dryness - Neurological Neurological: reports: General weakness, Memory problems (few verbalizations today;) - Hematologic/Lymphatic Hematologic/Lymph: reports: Bruising - All Other Systems All Other Systems: reports: Other (limited ROS) Physical Exam - Vital Signs Vital Signs: Vital Signs x48h Temp Pulse Resp BP Pulse Ox 03/27/21 04:40 36.1 C L 90 18 158/85 H 91 L - Physical Exam General Appearance: positive: Alert, Moderate distress, Anxious Eyes Bilateral: positive: Conjunctivae nml ENT: positive: Dry mucous membranes Neck: positive: Trachea midline Cardiovascular: positive: Irregular, Tachycardia Respiratory: positive: Diminished in bases, Wheezes (scattered insp/exp), Rales, Rhonchi (severe upper airway). negative: No respiratory distress (patitent w ith significant respiratory effort; has been responsive to MS) Abdomen: positive: Soft Skin: positive: Pallor, Dryness, Bruising Extremities: positive: Pedal edema (ankle left greater than right) Neurologic/Psychiatric: positive: Disoriented to person, Disoriented to place, Disoriented to time, Weakness, Flat affect Palliative Care - POLST POLST Status: DNR Pain: Location (upper back; with repositioning;) Feelings of wellbeing/Perceived Quality of Life: Poor, Worsening (per 's perception) - Palliative Care Discussion: 0845 Discussed with patient's continued fragile condition, patient development of CHF, in the setting of his NSTEMI and atrial fibs. Patient does appear quite uncomfortable, this is somewhat distressing to her. She did speak with her family, they are very supportive of her decision making, she would like to place him as does not feel like she can meet his needs at this point in time, prefers it be on the [facility], she does understand it would be private pay given at this point time he does not demonstrate any skilled needs, and most likely will be transition to p.o. antibiotics prior to discharge if they continue them. Discussed patient's current level of distress, in agreement to treat his CHF, continue antibiotics for now and see if he improves, concern for comfort is her biggest priority. She is leaning towards comfort measures status, this transition could even, at time of discharge, at this point she would like him more comfortable than he is. She is hoping that they will medicate him so he is not in distress. She is appropriately tearful, and does not perceive this as quality of life and he has had a fairly rapid decline most likely attributed to his ongoing falls and in particular his exacerbation of his back pain now with a compression fracture revealed. This information was relayed to social work, who will be looking at openings and options. At this point we will follow up on the POLST tomorrow, with most likely at this point she is leaning towards comfort measures on at least discharge, and possibly sooner. Results - Lab Results Lab results reviewed: Yes Fish Bones: 03/27/21 05:15 03/27/21 05:15 Lab and Imaging Results: Lab Results x24hrs 03/27/21 03/27/21 Range/Units 05:15 05:15 WBC 12.1 H (4.8-10.8) x10^3/uL RBC 4.73 (4.70-6.10) 10^6/uL Hgb 14.5 (14.0-18.0) g/dL Hct 43.4 (42.0-52.0) % MCV 91.8 (80.0-94.0) fL MCH 30.7 (27.0-31.0) pg MCHC 33.4 (32.0-36.0) g/dL RDW 13.6 (12.0-15.0) % Plt Count 146 (130-450) 10^3/uL MPV 10.6 (7.4-11.4) fL Neut # (Auto) 9.9 H (1.5-6.6) 10^3/uL Lymph # (Auto) 0.9 L (1.5-3.5) 10^3/uL [place] # (Auto) 1.0 (0.0-1.0) 10^3/uL Eos # (Auto) 0.1 (0.0-0.7) 10^3/uL Baso # (Auto) 0.0 (0.0-0.1) 10^3/uL Absolute Nucleated RBC 0.00 x10^3/uL Nucleated RBC % 0.0 /100WBC Sodium 141 (135-145) mmol/L Potassium 3.6 (3.5-5.0) mmol/L Chloride 108 (101-111) mmol/L Carbon Dioxide 23 (21-32) mmol/L Anion Gap 10.0 (6-13) BUN 31 H (6-20) mg/dL Creatinine 1.1 (0.6-1.2) mg/dL Estimated GFR (MDRD) 64 L (>89) Glucose 122 H (70-100) mg/dL Calcium 9.5 (8.5-10.3) mg/dL Magnesium 2.0 (1.7-2.8) mg/dL Impression and Recommendations - Palliative Care Impression: This is an 85-year-old gentleman who presents with ongoing fragile status, now presenting with CHF, worsening respiratory effort, bacteremia, and has had more of an acute decline both in his cognitive and functional status. does not feel she can care for him at home with his deterioration and would like placement at discharge. Palliative care continue to work with regarding defining goals of care, as well as wait on patient's response to current treatment for improvement of co mfort. Recommendations/Counseling Done: 1.Respiratory compromise. This is multifactorial, most likely attributed his aspiration pneumonia, CHF, and worsening dysphagia. Recommend swallow eval, as patient also has most likely been having chronic aspiration. Patient continues with high oxygen needs, presenting with respiratory effort and worsening breath sounds. Patient's WBC has increased to 12.0, at this point in time does not appear comfortable. He has responded to low-dose morphine for comfort, 's goal is to keep him comfortable. 2. Advance care planning. Patient at this point in time is going to need placement at discharge, does need support in finding appropriate setting. She is at this point in time where it is private pay and does not meet skilled care. She is also leaning towards transitioning to comfort care particularly on discharge, will consider hospice support on discharge and/or transition to comfort focused care if patient continues to do poorly. 45 minutes with greater than 50% of this done in counseling regarding goals of care, providing anticipatory guidance, coordination with hospital team.
[2021-03-27] MEDS: DOXYCYCLINE INJ 100 MG in SODIUM CHLORIDE 0.9% MINIBAG 100 ML IV SCH ×2 (12:10→20:41)
[2021-03-27] MEDS: MORPHINE 2 MG/ML CARPUJECT IVP PRN ×2 (12:11→20:54)
[2021-03-27] MEDS: FUROSEMIDE 20 MG/2 ML VIAL IVP SCH (14:27)
--- NOTE | 2021-03-27 18:02 | PROVIDER PROGRESS NOTE ---
Assessment/Plan - Problem List (1) Acute systolic heart failure Assessment/Plan: Patient is in more respiratory distress today. He is coughing more frequently and was noted to be "gurgling". Chest x-ray was done this morning that was read as pulmonary edema. We will start IV twice daily Lasix not just oral Lasix once daily. Follow I's and O's. Follow his magnesium, daily weights, daily electrolytes. (2) Acute respiratory failure with hypoxia Assessment/Plan: Continue with supplemental oxygen. After today's visit with palliative healthcare interpreter, because of the worsening status with aspiration of everything, the has decided to transition to comfort measures. We will stop blood draws, IV antibiotics. We will begin Robinul and topical Scopolamine and other as needed meds for Palliative Care. (3) Afib Assessment/Plan: Rate controlled. He has been unable to take any p.o. meds for approximately 12 hours because of aspiration. We will stop p.o. meds. Since he is transitioning to palliative care for imminent dying, will actually stop the po meds but continue Lasix iv and Metoprolol iv. (4) NSTEMI (non-ST elevated myocardial infarction) Assessment/Plan: As per Hx this admission (5) Bacteremia due to Klebsiella pneumoniae Assessment/Plan: The initial plan was to continue the new treatment with IV antibiotics however now this will be stopped because of transitioning to palliative care because he is imminently dying (6) UTI (urinary tract infection) Qualifiers: Urinary tract infection type: site unspecified Hematuria presence: without hematuria Qualified Code(s): N39.0 - Urinary tract infection, site not specified Assessment/Plan: As above (7) Aspiration pneumonia Qualifiers: Aspiration pneumonia type: due to gastric secretions Laterality: right Lung location: upper lobe of lung Qualified Code(s): J69.0 - Pneumonitis due to inhalation of food and vomit Assessment/Plan: As above (8) Dementia Qualifiers: Dementia type: Alzheimer's Alzheimer's disease onset: late-onset Dementia behavioral disturbance: without behavioral disturbance Qualified Code(s): G30.1 - Alzheimer's disease with late onset; F02.80 - Dementia in other diseases classified elsewhere without behavioral disturbance Assessment/Plan: Chronic and stable (9) Sepsis Qualifiers: Sepsis type: sepsis due to unspecified organism Sepsis acute organ dysfunction status: without acute organ dysfunction Qualified Code(s): A41.9 - Sepsis, unspecified organism Assessment/Plan: [id number] - Current Meds Current Meds: Current Medications Generic Name Dose Route Start Last Admin Trade Name Freq PRN Reason Stop Dose Admin Acetaminophen 650 mg 03/23/21 20:07 03/23/21 23:53 Acetaminophen 325 Mg Tablet PO 650 mg Q4HR PRN Administration Pain 1 to 4 Aspirin 81 mg 03/26/21 12:00 03/27/21 09:04 Aspirin Ec 81 Mg Tablet PO 81 mg DAILY [facility] Administration Atorvastatin Calcium 40 mg 03/23/21 21:00 03/26/21 20:25 Atorvastatin 40 Mg Tablet PO 40 mg QPM [facility] Administration Furosemide 20 mg 03/27/21 14:00 03/27/21 14:27 Furosemide 20 Mg/2 Ml Vial IVP 20 mg BIDDIURETIC [facility] Administration Doxycycline Hyclate 100 mg/ 100 mls @ 100 mls/hr 03/24/21 09:00 03/27/21 14:28 Sodium Chloride IV 03/29/21 08:59 Infused BID [facility] Infusion Ceftriaxone Sodium 2 gm/ 100 mls @ 200 mls/hr 03/27/21 09:00 03/27/21 11:11 Sodium Chloride IV Infused DAILY [facility] Infusion Lactobacillus Rhamnosus 1 cap 03/25/21 16:00 03/27/21 09:04 Lactobacillus Rhamnosus Gg Capsule PO 1 cap DAILY [facility] Administration Morphine Sulfate 2 mg 03/25/21 02:25 03/27/21 12:11 Morphine 2 Mg/Ml Carpuject IVP 2 mg Q2HR PRN Administration Shortness of Air/Wheezing Sodium Chloride 10 ml 03/23/21 20:07 03/25/21 23:55 Sodium Chloride Flush 0.9% 10 Ml Syringe IVP 10 ml PRN PRN Administration NEEDED PER PROVIDER ORDERS Sodium Chloride 10 ml 03/24/21 01:00 03/27/21 11:12 Sodium Chloride Flush 0.9% 10 Ml Syringe IVP Not Given 0100,0900,1700 [facility] Spironolactone 25 mg 03/27/21 09:00 03/27/21 09:04 Spironolactone 25 Mg Tablet PO 25 mg DAILY [facility] Administration - Lab Result Fish Bone Diagrams: 03/28/21 04:35 03/28/21 04:35 - Additional Planning My Orders: My Active Orders 03/27/21 Clinical Swallow Evaluation [ST] Routine 03/27/21 08:26 CULTURE, BLOOD #1 [RM] Stat 03/27/21 09:00 Spironolactone [Aldactone] 25 mg PO DAILY cefTRIAXone [Rocephin] 2 gm Sodium Chloride 0.9% Minibag [Normal Saline 0.9% Minibag] 100 ml IV DAILY 03/27/21 Lunch Dysphagia Puree Diet [DIET] 03/27/21 14:00 FUROSEMIDE INJ 20mg VIAL [LASIX INJ 20mg VIAL] 20 mg IVP BIDDIURETIC 03/27/21 21:00 Metoprolol Succinate [Toprol Xl] 25 mg PO BID 03/28/21 05:00 BMP - BASIC METABOLIC PANEL [CHEM] DAILYLAB CBC - COMP BLD CT W/AUTO DIFF [HEME] DAILYLAB 03/29/21 05:00 BMP - BASIC METABOLIC PANEL [CHEM] DAILYLAB CBC - COMP BLD CT W/AUTO DIFF [HEME] [facility]LAB 03/30/21 05:00 BMP - BASIC METABOLIC PANEL [CHEM] DAILYLAB CBC - COMP BLD CT W/AUTO DIFF [HEME] DAILYLAB Subjective - Subjective Nursing Reports: Other (Is rhochorius and tachypneic, wearing O2 mask, aware of oin room, mostly sleeping) Objective Vital Signs: Vital Signs - 24 hr 03/26/21 03/26/21 03/27/21 20:02 20:25 00:34 Temperature 36.8 C 36.6 C Heart Rate [ 69 Brachial] Heart Rate [ 70 Monitoring electrodes] Respiratory 28 H 22 Rate Blood Pressure 166/83 H Blood Pressure [Left Brachial artery] Blood Pressure 166/83 H 138/76 H [Right Brachial artery] O2 Saturation 99 93 03/27/21 03/27/21 03/27/21 04:40 09:00 13:58 Temperature 36.1 C L 36.4 C L 36.9 C Heart Rate [ 90 73 Brachial] Heart Rate [ 102 H Monitoring electrodes] Respiratory 18 24 30 H Rate Blood Pressure Blood Pressure 167/101 H 127/78 [Left Brachial artery] Blood Pressure 158/85 H [Right Brachial artery] O2 Saturation 91 L 91 L 83 L 03/27/21 03/27/21 14:39 16:43 Temperature 36.8 C Heart Rate [ Brachial] Heart Rate [ 65 Monitoring electrodes] Respiratory 26 H Rate Blood Pressure Blood Pressure 132/75 H [Left Brachial artery] Blood Pressure [Right Brachial artery] O2 Saturation 91 L 93 Oxygen O2 Source Oxymask I&O (Last 24 Hrs): Intake and Output Totals x24h 03/25/21 03/26/21 03/27/21 23:59 23:59 23:59 Intake Total 820 960 320 Output Total 200 Balance 620 960 320 General: Other (lethargic) HEENT: Mucous membr. moist/pink, Other (Coghing non-productive) Neck: Supple, Other ((+) JVD) Neuro: Non Focal, Other (Generalized weakness, not focal, responds with a smile to and son in room, does not follow commands) Cardiovascular: Regular rate Respiratory: Rhonchi Abdomen: Soft Extremities: No clubbing, No edema - Results Results: Laboratory Results WBC 12.1 x10^3/uL (4.8-10.8) H 03/27/21 05:15 RBC 4.73 10^6/uL (4.70-6.10) 03/27/21 05:15 Hgb 14.5 g/dL (14.0-18.0) 03/27/21 05:15 Hct 43.4 % (42.0-52.0) 03/27/21 05:15 MCV 91.8 fL (80.0-94.0) 03/27/21 05:15 MCH 30.7 pg (27.0-31.0) 03/27/21 05:15 MCHC 33.4 g/dL (32.0-36.0) 03/27/21 05:15 RDW 13.6 % (12.0-15.0) 03/27/21 05:15 Plt Count 146 10^3/uL (130-450) 03/27/21 05:15 MPV 10.6 fL (7.4-11.4) 03/27/21 05:15 Neut # (Auto) 9.9 10^3/uL (1.5-6.6) H 03/27/21 05:15 Lymph # (Auto) 0.9 10^3/uL (1.5-3.5) L 03/27/21 05:15 [place] # (Auto) 1.0 10^3/uL (0.0-1.0) 03/27/21 05:15 Eos # (Auto) 0.1 10^3/uL (0.0-0.7) 03/27/21 05:15 Baso # (Auto) 0.0 10^3/uL (0.0-0.1) 03/27/21 05:15 Absolute Nucleated RBC 0.00 x10^3/uL 03/27/21 05:15 Total Counted 100 03/25/21 05:20 Band Neuts % (Manual) 1 % (0-10) 03/25/21 05:20 Abnorm Lymph % (Manual) 0 % 03/25/21 05:20 Metamyelocytes % 2 % (-0) H 03/24/21 03:18 Myelocytes % 1 % (-0) H 03/24/21 03:18 Nucleated RBC % 0.0 /100WBC 03/27/21 05:15 Neutrophils # (Manual) 8.0 10^3/uL (1.5-6.6) H 03/25/21 05:20 Lymphocytes # (Manual) 1.1 10^3/uL (1.5-3.5) L 03/25/21 05:20 Monocytes # (Manual) 0.8 10^3/uL (0.0-1.0) 03/25/21 05:20 Eosinophils # (Manual) 0.4 10^3/uL (0-0.7) 03/25/21 05:20 Basophils # (Manual) 0.0 10^3/uL (0-0.1) 03/25/21 05:20 Differential Comment MANUAL DIFFERENTIAL 03/25/21 05:20 WBC Morphology NORMAL APPEARANCE (NORMAL) 03/25/21 05:20 Platelet Estimate DECREASED (<130,000) (NORMAL) 03/25/21 05:20 Platelet Morphology NORMAL APPEARANCE (NORMAL) 03/25/21 05:20 RBC Morph Micro Appear NORMAL APPEARANCE (NORMAL) 03/25/21 05:20 Anti-Xa Level 0.4 U/mL (-0.7) 03/25/21 18:31 Sodium 141 mmol/L (135-145) 03/27/21 05:15 Potassium 3.6 mmol/L (3.5-5.0) 03/27/21 05:15 Chloride 108 mmol/L (101-111) 03/27/21 05:15 Carbon Dioxide 23 mmol/L (21-32) 03/27/21 05:15 Anion Gap 10.0 (6-13) 03/27/21 05:15 BUN 31 mg/dL (6-20) H 03/27/21 05:15 Creatinine 1.1 mg/dL (0.6-1.2) 03/27/21 05:15 Estimated GFR (MDRD) 64 (>89) L 03/27/21 05:15 Glucose 122 mg/dL (70-100) H 03/27/21 05:15 Lactic Acid 2.0 mmol/L (0.5-2.2) 03/24/21 07:36 Calcium 9.5 mg/dL (8.5-10.3) 03/27/21 05:15 Magnesium 2.0 mg/dL (1.7-2.8) 03/27/21 05:15 Total Bilirubin 1.5 mg/dL (0.2-1.0) H 03/23/21 16:25 AST 35 IU/L (10-42) 03/23/21 16:25 ALT 21 IU/L (10-60) 03/23/21 16:25 Alkaline Phosphatase 108 IU/L (42-121) 03/23/21 16:25 Troponin I High Sens 217.3 ng/L (2.3-19.7) H* 03/24/21 19:25 B-Natriuretic Peptide 579 pg/mL (5-100) H 03/23/21 16:25 Total Protein 7.0 g/dL (6.7-8.2) 03/23/21 16:25 Albumin 3.6 g/dL (3.2-5.5) 03/23/21 16:25 Globulin 3.4 g/dL (2.1-4.2) 03/23/21 16:25 Albumin/Globulin Ratio 1.1 (1.0-2.2) 03/23/21 16:25 Lipase 24 U/L (22-51) 03/23/21 16:25 Urine Color YELLOW 03/23/21 19:10 Urine Clarity HAZY (CLEAR) 03/23/21 19:10 Urine pH 5.0 PH (5.0-7.5) 03/23/21 19:10 Ur Specific Friend >=1.030 (1.002-1.030) H 03/23/21 19:10 Urine Protein TRACE mg/dL (NEGATIVE) 03/23/21 19:10 Urine Glucose (UA) NEGATIVE mg/dL (NEGATIVE) 03/23/21 19:10 Urine Ketones TRACE mg/dL (NEGATIVE) 03/23/21 19:10 Urine Occult Blood MODERATE (NEGATIVE) H 03/23/21 19:10 Urine Nitrite POSITIVE (NEGATIVE) H 03/23/21 19:10 Urine Bilirubin NEGATIVE (NEGATIVE) 03/23/21 19:10 Urine Urobilinogen 0.2 (NORMAL) E.U./dL (NORMAL) 03/23/21 19:10 Ur Leukocyte Esterase SMALL (NEGATIVE) H 03/23/21 19:10 Urine RBC 6-10 /HPF (0-5) H 03/23/21 19:10 Urine WBC 11-25 /HPF (0-3) H 03/23/21 19:10 Ur Squamous Epith Cells NONE SEEN (<= Few) 03/23/21 19:10 Urine Crystals 11-25 Ca Oxalate /LPF 03/23/21 19:10 Urine Bacteria Many /HPF (None Seen) H 03/23/21 19:10 Ur Microscopic Review INDICATED 03/23/21 19:10 Urine Culture Comments INDICATED 03/23/21 19:10 Nasal Adenovirus (PCR) NOT DETECTED 03/23/21 20:20 Nasal B. parapertussis DNA (PCR) NOT DETECTED 03/23/21 20:20 Nasal Coronavir 229E PCR NOT DETECTED 03/23/21 20:20 Nasal Coronavir HKU1 PCR NOT DETECTED 03/23/21 20:20 Nasal Coronavir NL63 PCR NOT DETECTED 03/23/21 20:20 Nasal Coronavir OC43 PCR NOT DETECTED 03/23/21 20:20 Nasal Enterovir/Rhinovir PCR NOT DETECTED 03/23/21 20:20 Nasal Influenza B PCR NOT DETECTED 03/23/21 20:20 Nasal Influenza A PCR NOT DETECTED 03/23/21 20:20 Nasal Parainfluen 1 PCR NOT DETECTED 03/23/21 20:20 Nasal Parainfluen 2 PCR NOT DETECTED 03/23/21 20:20 Nasal Parainfluen 3 PCR NOT DETECTED 03/23/21 20:20 Nasal Parainfluen 4 PCR NOT DETECTED 03/23/21 20:20 Nasal RSV (PCR) NOT DETECTED 03/23/21 20:20 Nasal B.pertussis DNA PCR NOT DETECTED 03/23/21 20:20 Nasal C.pneumoniae (PCR) NOT DETECTED 03/23/21 20:20 Jacobo Human Metapneumo PCR NOT DETECTED 03/23/21 20:20 Nasal M.pneumoniae (PCR) NOT DETECTED 03/23/21 20:20 Nasal SARS-CoV-2 (PCR) NOT DETECTED 03/23/21 20:20 Sepsis Event Note (H) - Evaluation Current Stage of Sepsis: Sepsis - Sepsis Criteria Sepsis Criteria: Recorded Heart Rate greater than 90 bpm, Recorded Respiratory Rate greater than 20, Respiratory: Increasing oxygen requirements, WBC count greater than 12,000 or less than 4000, Metabolic: lactate > 2 mmol/L
[2021-03-27] MEDS: METOPROLOL SUCCINATE 25 MG TABLET PO SCH (20:41)
[2021-03-27] MEDS: ATORVASTATIN 40 MG TABLET PO SCH (20:41)
[2021-03-28] MEDS: SODIUM CHLORIDE FLUSH 0.9% 10 ML SYRINGE IVP SCH ×3 (00:27→17:30)
[2021-03-28] MEDS: MORPHINE 2 MG/ML CARPUJECT IVP PRN ×5 (00:36→18:59)
[2021-03-28] MEDS: SODIUM CHLORIDE FLUSH 0.9% 10 ML SYRINGE IVP PRN ×3 (04:18→13:45)
[2021-03-28 04:55] LABS: BASOPHILS % (AUTO) 0.3 %; EOSINOPHILS % (AUTO) 0.3 %; HCT - HEMATOCRIT 41.1 % (42.0-52.0); HGB - HEMOGLOBIN 13.4 g/dL (14.0-18.0); LYMPHOCYTES # (AUTO) 1.1 10^3/uL (1.5-3.5); LYMPHOCYTES % (AUTO) 10.2 %; MEAN CORPUSCULAR HEMOGLOBIN 30.5 pg (27.0-31.0); MEAN CORPUSCULAR HGB CONC 32.6 g/dL (32.0-36.0); MEAN CORPUSCULAR VOLUME 93.4 fL (80.0-94.0); MEAN PLATELET VOLUME 10.3 fL (7.4-11.4); MONOCYTES # (AUTO) 1.3 10^3/uL (0.0-1.0); MONOCYTES % (AUTO) 12.1 %; NEUTROPHILS # (AUTO) 8.2 10^3/uL (1.5-6.6); NEUTROPHILS % (AUTO) 76.3 %; PLT - PLATELET COUNT 151 10^3/uL (130-450); RED CELL DISTRIBUTION WIDTH 13.8 % (12.0-15.0); WHITE BLOOD COUNT 10.8 x10^3/uL (4.8-10.8)
[2021-03-28 05:06] LABS: CALCIUM 9.4 mg/dL (8.5-10.3); CREATININE 1.1 mg/dL (0.6-1.2); POTASSIUM 3.4 mmol/L (3.5-5.0)
[2021-03-28] MEDS: FUROSEMIDE 20 MG/2 ML VIAL IVP SCH ×2 (05:49→13:47)
[2021-03-28] MEDS: cefTRIAXone 2 GM in SODIUM CHLORIDE 0.9% MINIBAG 100 ML IV SCH (08:19)
[2021-03-28] MEDS ORDERED: SODIUM CHLORIDE 0.9% 500 ML IV ONE (08:21)
[2021-03-28] MEDS: ACETAMINOPHEN 325 MG TABLET PO PRN (08:26)
[2021-03-28] MEDS: ASPIRIN EC 81 MG TABLET PO SCH (08:26)
[2021-03-28] MEDS: METOPROLOL SUCCINATE 25 MG TABLET PO SCH (08:26)
[2021-03-28] MEDS: LACTOBACILLUS RHAMNOSUS GG CAPSULE PO SCH (08:27)
[2021-03-28] MEDS ORDERED: SENNA 8.6 MG TABLET PO SCH (09:00)
[2021-03-28] MEDS ORDERED: DOCUSATE SODIUM 250 MG CAPSULE PO SCH (09:00)
[2021-03-28] MEDS: DOXYCYCLINE INJ 100 MG in SODIUM CHLORIDE 0.9% MINIBAG 100 ML IV SCH (09:01)
[2021-03-28] MEDS: POTASSIUM CHLOR 10 MEQ/100 ML 10 MEQ/100 ML BAG IV SCH ×2 (09:03→10:29)
[2021-03-28] MEDS: SPIRONOLACTONE 25 MG TABLET PO SCH (09:15)
--- NOTE | 2021-03-28 12:03 | PROVIDER PROGRESS NOTE ---
Assessment/Plan - Problem List (1) Acute respiratory failure with hypoxia Assessment/Plan: O2 needs are sto=ill high and he is tachypneic, and coughing more since yesterday mid-day. Continue O2. Palliative Care provider has discussed with and she has rfequested [facility], will order these meds and management. The patient is worsening and is transitioning to imminently dying. (2) Aspiration pneumonia Qualifiers: Aspiration pneumonia type: due to gastric secretions Laterality: right Lung location: upper lobe of lung Qualified Code(s): J69.0 - Pneumonitis due to inhalation of food and vomit Assessment/Plan: Awaiting swallow eval by ST. Will add iv Flagyl for covering an aspiration PNA and stop Doxycycline. Will transition essential meds to iv Will order Robinul and Scopalamine patch. (3) Acute systolic heart failure Assessment/Plan: Continue iv bid Lasix, started yesterday for CHF by CXR yesterday and much more tachypneic with high O2 needs. (4) Afib Assessment/Plan: Rate was controlled but no po meds were administered today due to aspuration (5) NSTEMI (non-ST elevated myocardial infarction) Assessment/Plan: As per this admission (6) Bacteremia due to Klebsiella pneumoniae Assessment/Plan: We planned on changing to po Levaquin today and treat for 21 days for comp licated UTI causing bacteremia in a male, for good prostate penetration, but now that he is aspitrating, will swith to iv Levaquin, with this plan. (7) UTI (urinary tract infection) Qualifiers: Urinary tract infection type: site unspecified Hematuria presence: without hematuria Qualified Code(s): N39.0 - Urinary tract infection, site not specified Assessment/Plan: As above. (8) Dementia Qualifiers: Dementia type: Alzheimer's Alzheimer's disease onset: late-onset Dementia behavioral disturbance: without behavioral disturbance Qualified Code(s): G30.1 - Alzheimer's disease with late onset; F02.80 - Dementia in other diseases classified elsewhere without behavioral disturbance Assessment/Plan: Will cancel PT and Ot attempts (9) Sepsis Qualifiers: Sepsis type: sepsis due to unspecified organism Sepsis acute organ dysfunction status: without acute organ dysfunction Qualified Code(s): A41.9 - Sepsis, unspecified organism Assessment/Plan: Resolved - Current Meds Current Meds: Current Medications Generic Name Dose Route Start Last Admin Trade Name Manuelq PRN Reason Stop Dose Admin Acetaminophen 650 mg 03/23/21 20:07 03/28/21 08:26 Acetaminophen 325 Mg Tablet PO 650 mg Q4HR PRN Administration Pain 1 to 4 Aspirin 81 mg 03/26/21 12:00 03/28/21 08:26 Aspirin Ec 81 Mg Tablet PO 81 mg DAILY SKYLER Administration Atorvastatin Calcium 40 mg 03/23/21 21:00 03/27/21 20:41 Atorvastatin 40 Mg Tablet PO 40 mg QPM SKYLER Administration Docusate Sodium 250 - 500 mg 03/28/21 09:00 03/28/21 09:02 Docusate Sodium 250 Mg Capsule PO 500 mg DAILY SKYLER Administration Furosemide 20 mg 03/27/21 14:00 03/28/21 05:49 Furosemide 20 Mg/2 Ml Vial IVP 20 mg BIDDIURETIC SKYLER Administration Doxycycline Hyclate 100 mg/ 100 mls @ 100 mls/hr 03/24/21 09:00 03/28/21 10:29 Sodium Chloride IV 03/29/21 08:59 Infused BID SKYLER Infusion Ceftriaxone Sodium 2 gm/ 100 mls @ 200 mls/hr 03/27/21 09:00 03/28/21 08:50 Sodium Chloride IV Infused DAILY SKYLER Infusion Lactobacillus Rhamnosus 1 cap 03/25/21 16:00 03/28/21 08:27 Lactobacillus Rhamnosus Gg Capsule PO 1 cap DAILY SKYLER Administration Metoprolol Succinate 25 mg 03/27/21 21:00 03/28/21 08:26 Metoprolol Succinate 25 Mg Tablet PO 25 mg BID SKYLER Administration Morphine Sulfate 2 mg 03/25/21 02:25 03/28/21 11:22 Morphine 2 Mg/Ml Carpuject IVP 2 mg Q2HR PRN Administration Shortness of Air/Wheezing Senna 8.6 - 17.2 mg 03/28/21 09:00 03/28/21 09:02 Senna 8.6 Mg Tablet PO 17.2 mg DAILY SKYLER Administration Sodium Chloride 10 ml 03/23/21 20:07 03/28/21 05:49 Sodium Chloride Flush 0.9% 10 Ml Syringe IVP 10 ml PRN PRN Administration NEEDED PER PROVIDER ORDERS Sodium Chloride 10 ml 03/24/21 01:00 03/28/21 08:27 Sodium Chloride Flush 0.9% 10 Ml Syringe IVP 10 ml 0100,0900,1700 SKYLER Administration Spironolactone 25 mg 03/27/21 09:00 03/28/21 09:15 Spironolactone 25 Mg Tablet PO 25 mg DAILY SKYLER Administration - Lab Result Fish Bone Diagrams: 03/28/21 04:35 03/28/21 04:35 - Additional Planning My Orders: My Active Orders 03/27/21 Lunch Dysphagia Puree Diet [DIET] 03/27/21 14:00 FUROSEMIDE INJ 20mg VIAL [LASIX INJ 20mg VIAL] 20 mg IVP BIDDIURETIC 03/27/21 20:53 Min Oil/Dimeth/Coconut Oil Crm [Cavilon] 1 applic TOP PRN PRN 03/27/21 21:00 Metoprolol Succinate [Toprol Xl] 25 mg PO BID 03/28/21 09:00 Docusate Sodium 250Mg Capsule [Colace 250Mg Capsule] 250 - 500 mg PO DAILY Senna [Senokot] 8.6 - 17.2 mg PO DAILY 03/29/21 05:00 BMP - BASIC METABOLIC PANEL [CHEM] DAILYLAB CBC - COMP BLD CT W/AUTO DIFF [HEME] DAILYLAB 03/30/21 05:00 BMP - BASIC METABOLIC PANEL [CHEM] DAILYLAB CBC - COMP BLD CT W/AUTO DIFF [HEME] DAILYLAB Subjective - Subjective Nursing Reports: Confused, Cough (He has been aspirating his food and fluids, witness by RN, starting yesterday. Tray was held till swallow eval done by Speech Therapist at bedside.), Shortness of Breath Objective Vital Signs: Vital Signs - 24 hr 03/27/21 03/27/21 03/27/21 13:58 14:39 16:43 Temperature 36.9 C 36.8 C Heart Rate [ 73 Brachial] Heart Rate [ 65 Monitoring electrodes] Respiratory 30 H 26 H Rate Blood Pressure 127/78 132/75 H [Left Brachial artery] Blood Pressure [Right Brachial artery] O2 Saturation 83 L 91 L 93 03/27/21 03/28/21 03/28/21 20:12 00:21 00:37 Temperature 37.3 C 36.4 C L Heart Rate [ 101 H Brachial] Heart Rate [ 74 Monitoring electrodes] Respiratory 27 H 30 H 24 Rate Blood Pressure 137/71 H 98/66 [Left Brachial artery] Blood Pressure [Right Brachial artery] O2 Saturation 93 92 97 03/28/21 03/28/21 03/28/21 00:38 03:46 08:01 Temperature 36.2 C L 36.3 C L Heart Rate [ 94 Brachial] Heart Rate [ 87 Monitoring electrodes] Respiratory 30 H 30 H Rate Blood Pressure 131/94 H [Left Brachial artery] Blood Pressure 138/98 H [Right Brachial artery] O2 Saturation 91 L 97 96 Oxygen O2 Source oxymask I&O (Last 24 Hrs): Intake and Output Totals x24h 03/26/21 03/27/21 03/28/21 23:59 23:59 23:59 Intake Total 960 420 400 Balance 960 420 400 General: Other (Awake) HEENT: Mucous membr. moist/pink, Other (O2 mask on) Neck: Supple Neuro: Disoriented, Non Focal Cardiovascular: Other (Irreg irtreg) Respiratory: Other (Upper airway gurgling) Abdomen: Soft Extremities: Other (Mottled feet) - Results Results: Laboratory Results WBC 10.8 x10^3/uL (4.8-10.8) 03/28/21 04:35 RBC 4.40 10^6/uL (4.70-6.10) L 03/28/21 04:35 Hgb 13.4 g/dL (14.0-18.0) L 03/28/21 04:35 Hct 41.1 % (42.0-52.0) L 03/28/21 04:35 MCV 93.4 fL (80.0-94.0) 03/28/21 04:35 MCH 30.5 pg (27.0-31.0) 03/28/21 04:35 MCHC 32.6 g/dL (32.0-36.0) 03/28/21 04:35 RDW 13.8 % (12.0-15.0) 03/28/21 04:35 Plt Count 151 10^3/uL (130-450) 03/28/21 04:35 MPV 10.3 fL (7.4-11.4) 03/28/21 04:35 Neut # (Auto) 8.2 10^3/uL (1.5-6.6) H 03/28/21 04:35 Lymph # (Auto) 1.1 10^3/uL (1.5-3.5) L 03/28/21 04:35 [place] # (Auto) 1.3 10^3/uL (0.0-1.0) H 03/28/21 04:35 Eos # (Auto) 0.0 10^3/uL (0.0-0.7) 03/28/21 04:35 Baso # (Auto) 0.0 10^3/uL (0.0-0.1) 03/28/21 04:35 Absolute Nucleated RBC 0.00 x10^3/uL 03/28/21 04:35 Total Counted 100 03/25/21 05:20 Band Neuts % (Manual) 1 % (0-10) 03/25/21 05:20 Abnorm Lymph % (Manual) 0 % 03/25/21 05:20 Metamyelocytes % 2 % (-0) H 03/24/21 03:18 Myelocytes % 1 % (-0) H 03/24/21 03:18 Nucleated RBC % 0.0 /100WBC 03/28/21 04:35 Neutrophils # (Manual) 8.0 10^3/uL (1.5-6.6) H 03/25/21 05:20 Lymphocytes # (Manual) 1.1 10^3/uL (1.5-3.5) L 03/25/21 05:20 Monocytes # (Manual) 0.8 10^3/uL (0.0-1.0) 03/25/21 05:20 Eosinophils # (Manual) 0.4 10^3/uL (0-0.7) 03/25/21 05:20 Basophils # (Manual) 0.0 10^3/uL (0-0.1) 03/25/21 05:20 Differential Comment MANUAL DIFFERENTIAL 03/25/21 05:20 WBC Morphology NORMAL APPEARANCE (NORMAL) 03/25/21 05:20 Platelet Estimate DECREASED (<130,000) (NORMAL) 03/25/21 05:20 Platelet Morphology NORMAL APPEARANCE (NORMAL) 03/25/21 05:20 RBC Morph Micro Appear NORMAL APPEARANCE (NORMAL) 03/25/21 05:20 Anti-Xa Level 0.4 U/mL (-0.7) 03/25/21 18:31 Sodium 142 mmol/L (135-145) 03/28/21 04:35 Potassium 3.4 mmol/L (3.5-5.0) L 03/28/21 04:35 Chloride 107 mmol/L (101-111) 03/28/21 04:35 Carbon Dioxide 27 mmol/L (21-32) 03/28/21 04:35 Anion Gap 8.0 (6-13) 03/28/21 04:35 BUN 33 mg/dL (6-20) H 03/28/21 04:35 Creatinine 1.1 mg/dL (0.6-1.2) 03/28/21 04:35 Estimated GFR (MDRD) 64 (>89) L 03/28/21 04:35 Glucose 116 mg/dL (70-100) H 03/28/21 04:35 Lactic Acid 2.0 mmol/L (0.5-2.2) 03/24/21 07:36 Calcium 9.4 mg/dL (8.5-10.3) 03/28/21 04:35 Magnesium 2.0 mg/dL (1.7-2.8) 03/27/21 05:15 Total Bilirubin 1.5 mg/dL (0.2-1.0) H 03/23/21 16:25 AST 35 IU/L (10-42) 03/23/21 16:25 ALT 21 IU/L (10-60) 03/23/21 16:25 Alkaline Phosphatase 108 IU/L (42-121) 03/23/21 16:25 Troponin I High Sens 217.3 ng/L (2.3-19.7) H* 03/24/21 19:25 B-Natriuretic Peptide 579 pg/mL (5-100) H 03/23/21 16:25 Total Protein 7.0 g/dL (6.7-8.2) 03/23/21 16:25 Albumin 3.6 g/dL (3.2-5.5) 03/23/21 16:25 Globulin 3.4 g/dL (2.1-4.2) 03/23/21 16:25 Albumin/Globulin Ratio 1.1 (1.0-2.2) 03/23/21 16:25 Lipase 24 U/L (22-51) 03/23/21 16:25 Urine Color YELLOW 03/23/21 19:10 Urine Clarity HAZY (CLEAR) 03/23/21 19:10 Urine pH 5.0 PH (5.0-7.5) 03/23/21 19:10 Ur Specific [place] >=1.030 (1.002-1.030) H 03/23/21 19:10 Urine Protein TRACE mg/dL (NEGATIVE) 03/23/21 19:10 Urine Glucose (UA) NEGATIVE mg/dL (NEGATIVE) 03/23/21 19:10 Urine Ketones TRACE mg/dL (NEGATIVE) 03/23/21 19:10 Urine Occult Blood MODERATE (NEGATIVE) H 03/23/21 19:10 Urine Nitrite POSITIVE (NEGATIVE) H 03/23/21 19:10 Urine Bilirubin NEGATIVE (NEGATIVE) 03/23/21 19:10 Urine Urobilinogen 0.2 (NORMAL) E.U./dL (NORMAL) 03/23/21 19:10 Ur Leukocyte Esterase SMALL (NEGATIVE) H 03/23/21 19:10 Urine RBC 6-10 /HPF (0-5) H 03/23/21 19:10 Urine WBC 11-25 /HPF (0-3) H 03/23/21 19:10 Ur Squamous Epith Cells NONE SEEN (<= Few) 03/23/21 19:10 Urine Crystals 11-25 Ca Oxalate /LPF 03/23/21 19:10 Urine Bacteria Many /HPF (None Seen) H 03/23/21 19:10 Ur Microscopic Review INDICATED 03/23/21 19:10 Urine Culture Comments INDICATED 03/23/21 19:10 Nasal Adenovirus (PCR) NOT DETECTED 03/23/21 20:20 Nasal B. parapertussis DNA (PCR) NOT DETECTED 03/23/21 20:20 Nasal Coronavir 229E PCR NOT DETECTED 03/23/21 20:20 Nasal Coronavir HKU1 PCR NOT DETECTED 03/23/21 20:20 Nasal Coronavir NL63 PCR NOT DETECTED 03/23/21 20:20 Nasal Coronavir OC43 PCR NOT DETECTED 03/23/21 20:20 Nasal Enterovir/Rhinovir PCR NOT DETECTED 03/23/21 20:20 Nasal Influenza B PCR NOT DETECTED 03/23/21 20:20 Nasal Influenza A PCR NOT DETECTED 03/23/21 20:20 Nasal Parainfluen 1 PCR NOT DETECTED 03/23/21 20:20 Nasal Parainfluen 2 PCR NOT DETECTED 03/23/21 20:20 Nasal Parainfluen 3 PCR NOT DETECTED 03/23/21 20:20 Nasal Parainfluen 4 PCR NOT DETECTED 03/23/21 20:20 Nasal RSV (PCR) NOT DETECTED 03/23/21 20:20 Nasal B.pertussis DNA PCR NOT DETECTED 03/23/21 20:20 Nasal C.pneumoniae (PCR) NOT DETECTED 03/23/21 20:20 Jacobo Human Metapneumo PCR NOT DETECTED 03/23/21 20:20 Nasal M.pneumoniae (PCR) NOT DETECTED 03/23/21 20:20 Nasal SARS-CoV-2 (PCR) NOT DETECTED 03/23/21 20:20 Sepsis Event Note (H) - Evaluation Current Stage of Sepsis: Sepsis - Sepsis Criteria Sepsis Criteria: Recorded Heart Rate greater than 90 bpm, Recorded Respiratory Rate greater than 20, Respiratory: Increasing oxygen requirements, WBC count greater than 12,000 or less than 4000, Metabolic: lactate > 2 mmol/L
[2021-03-28] MEDS ORDERED: HALOPERIDOL 5 MG/ML VIAL IVP PRN (13:03)
[2021-03-28] MEDS ORDERED: LOPERAMIDE 2 MG CAPSULE PO PRN (13:03)
--- NOTE | 2021-03-28 13:28 | CONSULTATION NOTE ---
Palliative Care Follow Up - Referral Referring Provider: Brigitte Rousseau MD Time of Visit: [id number] Referral setting: Hospitalized patient Referral Reason: Aspiration pneumonia/Acute respiratory failure/Goals of care - Information Sources Records reviewed: RN notes reviewed, Previous records reviewed History/Review of Systems obtained from: Family ( Bonnie), Nursing Exam limitations: Clinical condition (patient very lethargic and with respiratory effort fatigued) - History of Present Illness Update Brief HPI Update: This is an 85-year-old gentleman who was admitted with bacteremia, new diagnosis of A. fib, NSTEMI, and continued symptoms of aspiration pneumonia. Unfortunately patient continues to decline, despite antibiotics, and cardiac support. Patient is continuing to aspirate, is quite weak, has significant amount of upper airway secretions he cannot clear, and is having trouble keeping his oxygen above 90%, without oximeter. We had had a conversation yesterday, the patient was not doing well, and she had been considering fairly strongly transitioning to comfort/hospice care. Given his imminent demise, and worsening symptom burden, It would be appropriate further supportive care and focus on comfort only. He is unable to eat today, continued coughing and resulting in aspiration. He is presenting with respiratory effort of respiratory rate of 30, continues with loose rhonchi, and fading in and out. He did respond well to the morphine 2 mg for comfort, which also eased 's anxiety to see him breathing less distressed he does open his eyes, he appears quite weak, he does have mottling in his knees and lower extremities. He has had poor venous access, if lose IV, would recommend transitioning to subcu. Past Medical History: Hypertension, high cholesterol, chronic cough from GERD, Alzheimer's, peripheral neuropathy/idiopathic progressive, multiple falls with fractures, newly diagnosed thoracic compression fracture T7 01/2021, s/p hemicolectomy for large tubulovillous adenoma, depression, osteoarthritis, fatigue, chronic back pain, cervical and lumbar spinal stenosis, Social History - Living Situation Living arrangement: At home Living Situation: With spouse/s.o. Support System: Patient and his have been over 40 years. Patient does have 2 sons, his 1 son was here Wednesday so aware of patient's fragile condition. The other son Has not seen him for a couple months, he is aware of patient's decline and was going to go with them to find a memory care unit.. She does not feel with his decline in functional status and worsening cognitive status that she would be able to meet his care needs at home, she does have support from family to transition him to another setting. She has also updated them on his worsening condition, and they are supportive of focusing on comfort as well Medications/Allergies - Medications Active Medication List: Active Medications Acetaminophen (Acetaminophen 325 Mg Tablet) 650 mg PO Q4HR PRN PRN Reason: Pain 1 to 4 Last Admin: 03/28/21 08:26 Dose: 650 mg Documented by: Aspirin (Aspirin Ec 81 Mg Tablet) 81 mg PO DAILY [facility] Last Admin: 03/28/21 08:26 Dose: 81 mg Documented by: Atorvastatin Calcium (Atorvastatin 40 Mg Tablet) 40 mg PO QPM [facility] Last Admin: 03/27/21 20:41 Dose: 40 mg Documented by: Docusate Sodium (Docusate Sodium 250 Mg Capsule) 250 - 500 mg PO DAILY [facility] Last Admin: 03/28/21 09:02 Dose: 500 mg Documented by: Furosemide (Furosemide 20 Mg/2 Ml Vial) 20 mg IVP BIDDIURETIC [facility] Last Admin: 03/28/21 05:49 Dose: 20 mg Documented by: Glycopyrrolate (Glycopyrrolate 1 Mg/5 Ml Vial) 0.2 mg SUBQ Q4H PRN PRN Reason: Excessive secretions Haloperidol (Haloperidol 5 Mg/Ml Vial) 0.5 mg IVP Q6H PRN PRN Reason: Nausea / Vomiting Metronidazole (Flagyl 500 Mg/100 Ml) 500 mg in 100 mls @ 100 mls/hr IV Q8H [facility] Levofloxacin (Levaquin 750 Mg/150 Ml) 750 mg in 150 mls @ 100 mls/hr IV Q24H [facility] Lactobacillus Rhamnosus (Lactobacillus Rhamnosus Gg Capsule) 1 cap PO DAILY [facility] Last Admin: 03/28/21 08:27 Dose: 1 cap Documented by: Loperamide HCl (Loperamide 2 Mg Capsule) 2 mg PO Q2H PRN PRN Reason: Diarrhea Metoprolol Succinate (Metoprolol Succinate 25 Mg Tablet) 25 mg PO BID [facility] Last Admin: 03/28/21 08:26 Dose: 25 mg Documented by: Mineral Oil (Min Oil/Dimethicon/Coconut Oil 92 Gm Tube) 1 applic TOP PRN PRN PRN Reason: Skin Care Morphine Sulfate (Morphine 2 Mg/Ml Carpuject) 2 mg IVP Q2HR PRN PRN Reason: Shortness of Air/Wheezing Last Admin: 03/28/21 11:22 Dose: 2 mg Documented by: Morphine Sulfate (Morphine Prachi 10 Mg/0.5 Ml Oral Syringe) 5 mg SL Q2HR PRN PRN Reason: PAIN Multi-Ingredient Ointment (Zinc Oxide 20% Oint 30 Gm Tube) 1 applic TOP PRN PRN PRN Reason: Skin Care Ondansetron HCl (Ondansetron Odt 4 Mg Tablet) 4 mg TL Q6HR PRN PRN Reason: Nausea / Vomiting Ondansetron HCl (Ondansetron 4 Mg/2 Ml Vial) 4 mg IVP Q6HR PRN PRN Reason: Nausea / Vomiting Oxycodone HCl (Oxycodone 5 Mg Tablet) 5 mg PO Q4HR PRN PRN Reason: Pain 5 to 7 Scopolamine HBr (Scopolamine Patch) 1 patch TOP Q3D [facility] Senna (Senna 8.6 Mg Tablet) 8.6 - 17.2 mg PO DAILY [facility] Last Admin: 03/28/21 09:02 Dose: 17.2 mg Documented by: Sodium Chloride (Sodium Chloride Flush 0.9% 10 Ml Syringe) 10 ml IVP PRN PRN PRN Reason: NEEDED PER PROVIDER ORDERS Last Admin: 03/28/21 05:49 Dose: 10 ml Documented by: Sodium Chloride (Sodium Chloride Flush 0.9% 10 Ml Syringe) 10 ml IVP 0100,0900,1700 [facility] Last Admin: 03/28/21 08:27 Dose: 10 ml Documented by: Spironolactone (Spironolactone 25 Mg Tablet) 25 mg PO DAILY [facility] Last Admin: 03/28/21 09:15 Dose: 25 mg Documented by: Donepezil HCl [Aricept] 10 mg DAILY 09/05/17 Memantine HCl 10 mg PO DAILY 09/05/17 Acetaminophen/Diphenhydramine [[facility] Pain Relief Pm Caplet] 2 tab PO HS 03/23/21 Meloxicam [Mobic] 1 tab PO DAILY 03/23/21 Naproxen [Naprosyn] 1 tab PO DAILY 03/23/21 Omeprazole 1 tab PO DAILY 03/23/21 amLODIPine [Norvasc] 2.5 mg PO DAILY 03/23/21 - Allergies Allergies/Adverse Reactions: Allergies Allergy/AdvReac Type Severity Reaction Status Date / Time No Known Drug Allergies Allergy Verified 03/23/21 16:28 Review of Systems - Constitutional Constitutional: reports: Fatigue, Weakness. denies: Fever - Ears, Nose & Throat Ears, Nose & Throat: reports: Dry mouth - Cardiovascular Cardiovascular: reports: Exertional dyspnea - Respiratory Respiratory: reports: Cough (worsening and with significant effort), SOB at rest, SOB with exertion - Genitourinary Genitourinary: reports: Incontinence - Musculoskeletal Musculoskeletal: reports: Back pain, Stiffness, Limited range of motion, Muscle weakness, Other (bedbound) - Integumentary Integumentary: reports: Dryness - Neurological Neurological: reports: General weakness, Memory problems (no verbalization t jitendra) - Hematologic/Lymphatic Hematologic/Lymph: reports: Bruising - All Other Systems All Other Systems: reports: Other (limited ROS) Physical Exam - Vital Signs Vital Signs: Vital Signs x48h Temp Pulse Resp BP Pulse Ox 03/28/21 08:01 36.3 C L 87 30 H 138/98 H 96 - Physical Exam General Appearance: positive: Moderate distress, Anxious, Lethargic Eyes Bilateral: positive: Conjunctivae nml ENT: positive: Dry mucous membranes Neck: positive: Trachea midline Cardiovascular: positive: Irregular, Tachycardia Respiratory: positive: Diminished in bases, Wheezes (scattered insp/exp), Rales, Rhonchi (severe upper airway). negative: No respiratory distress (patitent with significant respiratory effort; has been responsive to MS) Abdomen: positive: Soft Skin: positive: Pallor, Dryness, Bruising Extremities: positive: Pedal edema (ankle left greater than right) Neurologic/Psychiatric: positive: Disoriented to person, Disoriented to place, Disoriented to time, Weakness, Flat affect Palliative Care - POLST Patient has POLST: Yes POLST Status: DNR, Comfort Measures Pain: Pain unchanged, Location (back; known thorac compression fx) Feelings of wellbeing/Perceived Quality of Life: Poor, Worsening Performance Status: Patient is bedbound, requires maximum assist with bed mobility, oral care, and repositioning. Patient does slide down pretty easily. He is quite weak. - Palliative Care Discussion: Met with , appropriately tearful but feeling more at peace with her decision. She does have several appointments lined up to explore memory care units tomorrow, though at this point patient does look like he is imminently transitioning and would be in significant distress to transfer in the middle of this process. We completed the POLST with comfort measures and DN AR, with the goal to transition to hospice. Her biggest goal for him is to be comfortable, and does not like to see him in respiratory distress or suffering, she does feel like he seems more comfortable after the morphine, and awaiting for them to start the Robinul to help with secretions this should help as well. Counseling provided regarding anticipatory guidance regarding dying process, expected prognosis Hours to days, but is looking very frail. Recommended she decided to home fairly soon, and off her her sons the opportunity to come up and [place] given his declining condition. Psychosocial support and presents offered as well as coordination with hospital team. Results - Lab Results Lab results reviewed: Yes Fish Bones: 03/28/21 04:35 03/28/21 04:35 Lab and Imaging Results: Lab Results x24hrs 03/28/21 03/28/21 Range/Units 04:35 04:35 WBC 10.8 (4.8-10.8) x10^3/uL RBC 4.40 L (4.70-6.10) 10^6/uL Hgb 13.4 L (14.0-18.0) g/dL Hct 41.1 L (42.0-52.0) % MCV 93.4 (80.0-94.0) fL MCH 30.5 (27.0-31.0) pg MCHC 32.6 (32.0-36.0) g/dL RDW 13.8 (12.0-15.0) % Plt Count 151 (130-450) 10^3/uL MPV 10.3 (7.4-11.4) fL Neut # (Auto) 8.2 H (1.5-6.6) 10^3/uL Lymph # (Auto) 1.1 L (1.5-3.5) 10^3/uL [place] # (Auto) 1.3 H (0.0-1.0) 10^3/uL Eos # (Auto) 0.0 (0.0-0.7) 10^3/uL Baso # (Auto) 0.0 (0.0-0.1) 10^3/uL Absolute Nucleated RBC 0.00 x10^3/uL Nucleated RBC % 0.0 /100WBC Sodium 142 (135-145) mmol/L Potassium 3.4 L (3.5-5.0) mmol/L Chloride 107 (101-111) mmol/L Carbon Dioxide 27 (21-32) mmol/L Anion Gap 8.0 (6-13) BUN 33 H (6-20) mg/dL Creatinine 1.1 (0.6-1.2) mg/dL Estimated GFR (MDRD) 64 L (>89) Glucose 116 H (70-100) mg/dL Calcium 9.4 (8.5-10.3) mg/dL Impression and Recommendations - Palliative Care Impression: This is an 85-year-old gentleman who has been having functional and cognitive decline secondary to his dementia, presenting with an acute event. Most likely precipitated by aspiration pneumonia, developed bacteremia, sepsis, cardiac issues with NSTENI, atrial fib, as well as hypoxia. Patient has not improved despite antibiotics and cardiac support, continues to aspirate, given their goals of care, will transition to comfort measures. Palliative care providing support in the context of defining goals, and transitioning. Recommendations/Counseling Done: 1. Aspiration pneumonia. Patient continues to aspirate both on any kind of food/fluids and oral secretions. He would benefit from having his secretions dried up, recommended Robinul on a regular basis for secretion management, as well as morphine every 2 hours for comfort and respiratory distress, oral care only, and NPO. Goals are to focus on comfort, and ease patient's distress, patient is showing signs and symptoms of imminent transitioning. 2. Acute on chronic back pain. Patient does have known severe T7 compression fracture, is significantly distressed with any kind of movement or repositioning. [id number] morphine should address pain issues, will need to receive on a regular basis. 3. Advanced care planning. Met with to define transitioning to comfort measures, this is in alignment with her goals. She would very much like her to have a comfortable respectful , to relieve his suffering, we discussed and counseling provided regarding anticipatory guidance. POLST completed with comfort measures, this is communicated to the hospitalist. They will enlist the comfort care orders, add Robinul, discontinue all oral medications and antibiotics support as well as labs. 75 minutes with greater than 50% of this done in counseling regarding goals of care, coordination of care with hospitalist team, recommend reaching out to [facility] to see when next opening is, given patient's high symptom burden, would need to be received by hospice in setting for adequate symptom management. Patient most likely has a prognosis of hours, focus on comfort measures here most likely in patient's best interest.
[2021-03-28] MEDS: SCOPOLAMINE PATCH TOP SCH (13:48)
[2021-03-28] MEDS: GLYCOPYRROLATE 1 MG/5 ML VIAL SUBQ PRN ×2 (13:48→19:04)
[2021-03-28] MEDS ORDERED: metroNIDAZOLE 500 MG/100 ML 500 MG/100 ML BAG IV SCH (14:00)
[2021-03-28] MEDS ORDERED: levoFLOXacin 750 MG/150 ML 750 MG/150 ML BAG IV SCH (17:00)
[2021-03-28] MEDS: METOPROLOL 5 MG/5 ML VIAL IVP SCH (22:55)
[2021-03-29] MEDS: MORPHINE SOL 10 MG/0.5 ML ORAL SYRINGE SL PRN ×7 (02:15→17:38)
[2021-03-29] MEDS: SODIUM CHLORIDE FLUSH 0.9% 10 ML SYRINGE IVP SCH ×2 (02:24→08:43)
[2021-03-29] MEDS: SODIUM CHLORIDE FLUSH 0.9% 10 ML SYRINGE IVP PRN (06:30)
[2021-03-29] MEDS: FUROSEMIDE 20 MG/2 ML VIAL IVP SCH (06:30)
[2021-03-29] MEDS: METOPROLOL 5 MG/5 ML VIAL IVP SCH (08:36)
[2021-03-29] MEDS: GLYCOPYRROLATE 1 MG/5 ML VIAL SUBQ PRN (08:36)
[2021-03-29] MEDS ORDERED: MORPHINE 2 MG/ML CARPUJECT IVP PRN (11:26)
[2021-03-29] MEDS ORDERED: ACETAMINOPHEN 120 MG SUPP PR PRN (12:00)
[2021-03-29] MEDS ORDERED: MORPHINE SOL 10 MG/0.5 ML ORAL SYRINGE SL PRN (12:00)
--- NOTE | 2021-03-29 12:05 | PROVIDER PROGRESS NOTE ---
Assessment/Plan - Problem List (1) Acute respiratory failure with hypoxia Assessment/Plan: He continues to be tachypneic, is more comfortable wearing O2 venti-mask. He occais takes it off due to confusion from his dementia. His iv has infiltrated and no iv access as of today. Will order more meds on the Comfort Care pre-set: Morphine sl prn dyspnea, Hyoscyamine prn secretions, Tylenol supp prn pain or fever, and continue Scopalamine patch. The family has requested Hospice Care for end-of-life care. I will order Hospice referral/consult today. I estimate he may survive several days and told the family that. Thus, wants to take him home or to a hotel and have a hospital bed delivered. SW will order the equipment. (2) Aspiration into airway Qualifiers: Encounter type: subsequent encounter Qualified Code(s): T17.908D - Unsp ecified foreign body in respiratory tract, part unspecified causing other injury, subsequent encounter Assessment/Plan: This was witnessed starting 2 days ago and yesterday. Yesterday, he was made NPO and all po med were stopped. (3) Need for comfort care Assessment/Plan: As described in #1 (4) Acute systolic heart failure Assessment/Plan: His iv infiltrated and no further iv LAsix can be given. Will order sl Morphine prn dyspnea, continue O2 for comfort. (5) Afib Assessment/Plan: No further iv access so no further iv Metoprolol to be given for preventing Afib RVR, as he had 2 days ago. Telemetry and VS were stopped yesterday. (6) NSTEMI (non-ST elevated myocardial infarction) Assessment/Plan: As per Hx during this admission (7) Bacteremia due to Klebsiella pneumoniae Assessment/Plan: When Comfort Care was decided to start yesterday, the family agreed to stop iv antibx (8) UTI (urinary tract infection) Qualifiers: Urinary tract infection type: site unspecified Hematuria presence: without hematuria Qualified Code(s): N39.0 - Urinary tract infection, site not specified Assessment/Plan: When Comfort Care was decided to start yesterday, the family agreed to stop iv antibx (9) Aspiration pneumonia Qualifiers: Aspiration pneumonia type: due to gastric secretions Laterality: right Lung location: upper lobe of lung Qualified Code(s): J69.0 - Pneumonitis due to inhalation of food and vomit Assessment/Plan: When Comfort Care was decided to start yesterday, the family agreed to stop iv antibx (10) Dementia Qualifiers: Dementia type: Alzheimer's Alzheimer's disease onset: late-onset Dementia behavioral disturbance: without behavioral disturbance Qualified Code(s): G30.1 - Alzheimer's disease with late onset; F02.80 - Dementia in other diseases classified elsewhere without behavioral disturbance Assessment/Plan: As per Hx (11) Sepsis Qualifiers: Sepsis type: sepsis due to unspecified organism Sepsis acute organ dysfunction status: without acute organ dysfunction Qualified Code(s): A41.9 - Sepsis, unspecified organism Assessment/Plan: Resolved - Current Meds Current Meds: Current Medications Generic Name Dose Route Start Last Admin Trade Name Freq PRN Reason Stop Dose Admin Glycopyrrolate 0.2 mg 03/28/21 13:03 03/29/21 08:36 Glycopyrrolate 1 Mg/5 Ml Vial SUBQ 0.2 mg Q4H PRN Administration Excessive secretions Scopolamine HBr 1 patch 03/28/21 14:00 03/28/21 13:48 Scopolamine Patch TOP 1 patch Q3D SKYLER Administration - Lab Result Fish Bone Diagrams: 03/28/21 04:35 03/28/21 04:35 - Additional Planning My Orders: My Active Orders 03/28/21 13:03 Comfort Care [RC] QSHIFT Cooling Unit [RC] PRN Oral Care - Nursing [RC] BID Turn and Reposition [RC] PRN Vital Signs [RC] PRN Warming Unit [RC] PRN NPO [DIET] Glycopyrrolate [Robinul] 0.2 mg SUBQ Q4H PRN 03/28/21 14:00 Scopolamine Patch [Transderm-Scop] 1 patch TOP Q3D 03/28/21 15:45 Telemetry-Discontinue [RC] .ONCE 03/29/21 Hospice Referral for Post-Discharge Services [CONS] Routine 03/29/21 11:54 Hyoscyamine [Levsin] 0.125 mg SL Q4H PRN 03/29/21 12:00 Acetaminophen [Tylenol] 120 mg [place] Q6HR PRN 03/29/21 12:00 Morphine Oral Soln [Roxanol] 5 mg SL Q3HR PRN Subjective - Subjective Patient Reports: Shortness of Breath, Other (Tachypneic, struggling for air, had just taken off his ventimask. He opens eyes and facial gestures to and son at bedside.) Objective Vital Signs: Vital Signs - 24 hr 03/29/21 03/29/21 02:00 04:35 Respiratory 22 22 Rate O2 Saturation 92 Oxygen O2 Source Oxymask I&O (Last 24 Hrs): Intake and Output Totals x24h 03/27/21 03/28/21 03/29/21 23:59 23:59 23:59 Intake Total 420 500 Balance 420 500 General: Moderate distress, Other (Confused, not speaking, tachypneic, temporal wasting) HEENT: EOMI (Eyes sunken), Other (Dry oral mucosa, lips are cyanotic (he pulled off his O2 mask 2 hours ago, per family)) Neuro: Other (Wakens to name and to touch, not speaking or follwing commands, facial gestures to family (at bedside), moves spontaneously in bed) Cardiovascular: Other (Irreg irreg) Respiratory: Rales Abdomen: Soft Extremities: No edema - Results Results: Laboratory Results WBC 10.8 x10^3/uL (4.8-10.8) 03/28/21 04:35 RBC 4.40 10^6/uL (4.70-6.10) L 03/28/21 04:35 Hgb 13.4 g/dL (14.0-18.0) L 03/28/21 04:35 Hct 41.1 % (42.0-52.0) L 03/28/21 04:35 MCV 93.4 fL (80.0-94.0) 03/28/21 04:35 MCH 30.5 pg (27.0-31.0) 03/28/21 04:35 MCHC 32.6 g/dL (32.0-36.0) 03/28/21 04:35 RDW 13.8 % (12.0-15.0) 03/28/21 04:35 Plt Count 151 10^3/uL (130-450) 03/28/21 04:35 MPV 10.3 fL (7.4-11.4) 03/28/21 04:35 Neut # (Auto) 8.2 10^3/uL (1.5-6.6) H 03/28/21 04:35 Lymph # (Auto) 1.1 10^3/uL (1.5-3.5) L 03/28/21 04:35 Petroleum # (Auto) 1.3 10^3/uL (0.0-1.0) H 03/28/21 04:35 Eos # (Auto) 0.0 10^3/uL (0.0-0.7) 03/28/21 04:35 Baso # (Auto) 0.0 10^3/uL (0.0-0.1) 03/28/21 04:35 Absolute Nucleated RBC 0.00 x10^3/uL 03/28/21 04:35 Total Counted 100 03/25/21 05:20 Band Neuts % (Manual) 1 % (0-10) 03/25/21 05:20 Abnorm Lymph % (Manual) 0 % 03/25/21 05:20 Metamyelocytes % 2 % (-0) H 03/24/21 03:18 Myelocytes % 1 % (-0) H 03/24/21 03:18 Nucleated RBC % 0.0 /100WBC 03/28/21 04:35 Neutrophils # (Manual) 8.0 10^3/uL (1.5-6.6) H 03/25/21 05:20 Lymphocytes # (Manual) 1.1 10^3/uL (1.5-3.5) L 03/25/21 05:20 Monocytes # (Manual) 0.8 10^3/uL (0.0-1.0) 03/25/21 05:20 Eosinophils # (Manual) 0.4 10^3/uL (0-0.7) 03/25/21 05:20 Basophils # (Manual) 0.0 10^3/uL (0-0.1) 03/25/21 05:20 Differential Comment MANUAL DIFFERENTIAL 03/25/21 05:20 WBC Morphology NORMAL APPEARANCE (NORMAL) 03/25/21 05:20 Platelet Estimate DECREASED (<130,000) (NORMAL) 03/25/21 05:20 Platelet Morphology NORMAL APPEARANCE (NORMAL) 03/25/21 05:20 RBC Morph Micro Appear NORMAL APPEARANCE (NORMAL) 03/25/21 05:20 Anti-Xa Level 0.4 U/mL (-0.7) 03/25/21 18:31 Sodium 142 mmol/L (135-145) 03/28/21 04:35 Potassium 3.4 mmol/L (3.5-5.0) L 03/28/21 04:35 Chloride 107 mmol/L (101-111) 03/28/21 04:35 Carbon Dioxide 27 mmol/L (21-32) 03/28/21 04:35 Anion Gap 8.0 (6-13) 03/28/21 04:35 BUN 33 mg/dL (6-20) H 03/28/21 04:35 Creatinine 1.1 mg/dL (0.6-1.2) 03/28/21 04:35 Estimated GFR (MDRD) 64 (>89) L 03/28/21 04:35 Glucose 116 mg/dL (70-100) H 03/28/21 04:35 Lactic Acid 2.0 mmol/L (0.5-2.2) 03/24/21 07:36 Calcium 9.4 mg/dL (8.5-10.3) 03/28/21 04:35 Magnesium 2.0 mg/dL (1.7-2.8) 03/27/21 05:15 Total Bilirubin 1.5 mg/dL (0.2-1.0) H 03/23/21 16:25 AST 35 IU/L (10-42) 03/23/21 16:25 ALT 21 IU/L (10-60) 03/23/21 16:25 Alkaline Phosphatase 108 IU/L (42-121) 03/23/21 16:25 Troponin I High Sens 217.3 ng/L (2.3-19.7) H* 03/24/21 19:25 B-Natriuretic Peptide 579 pg/mL (5-100) H 03/23/21 16:25 Total Protein 7.0 g/dL (6.7-8.2) 03/23/21 16:25 Albumin 3.6 g/dL (3.2-5.5) 03/23/21 16:25 Globulin 3.4 g/dL (2.1-4.2) 03/23/21 16:25 Albumin/Globulin Ratio 1.1 (1.0-2.2) 03/23/21 16:25 Lipase 24 U/L (22-51) 03/23/21 16:25 Urine Color YELLOW 03/23/21 19:10 Urine Clarity HAZY (CLEAR) 03/23/21 19:10 Urine pH 5.0 PH (5.0-7.5) 03/23/21 19:10 Ur Specific [place] >=1.030 (1.002-1.030) H 03/23/21 19:10 Urine Protein TRACE mg/dL (NEGATIVE) 03/23/21 19:10 Urine Glucose (UA) NEGATIVE mg/dL (NEGATIVE) 03/23/21 19:10 Urine Ketones TRACE mg/dL (NEGATIVE) 03/23/21 19:10 Urine Occult Blood MODERATE (NEGATIVE) H 03/23/21 19:10 Urine Nitrite POSITIVE (NEGATIVE) H 03/23/21 19:10 Urine Bilirubin NEGATIVE (NEGATIVE) 03/23/21 19:10 Urine Urobilinogen 0.2 (NORMAL) E.U./dL (NORMAL) 03/23/21 19:10 Ur Leukocyte Esterase SMALL (NEGATIVE) H 03/23/21 19:10 Urine RBC 6-10 /HPF (0-5) H 03/23/21 19:10 Urine WBC 11-25 /HPF (0-3) H 03/23/21 19:10 Ur Squamous Epith Cells NONE SEEN (<= Few) 03/23/21 19:10 Urine Crystals 11-25 Ca Oxalate /LPF 03/23/21 19:10 Urine Bacteria Many /HPF (None Seen) H 03/23/21 19:10 Ur Microscopic Review INDICATED 03/23/21 19:10 Urine Culture Comments INDICATED 03/23/21 19:10 Nasal Adenovirus (PCR) NOT DETECTED 03/23/21 20:20 Nasal B. parapertussis DNA (PCR) NOT DETECTED 03/23/21 20:20 Nasal Coronavir 229E PCR NOT DETECTED 03/23/21 20:20 Nasal Coronavir HKU1 PCR NOT DETECTED 03/23/21 20:20 Nasal Coronavir NL63 PCR NOT DETECTED 03/23/21 20:20 Nasal Coronavir OC43 PCR NOT DETECTED 03/23/21 20:20 Nasal Enterovir/Rhinovir PCR NOT DETECTED 03/23/21 20:20 Nasal Influenza B PCR NOT DETECTED 03/23/21 20:20 Nasal Influenza A PCR NOT DETECTED 03/23/21 20:20 Nasal Parainfluen 1 PCR NOT DETECTED 03/23/21 20:20 Nasal Parainfluen 2 PCR NOT DETECTED 03/23/21 20:20 Nasal Parainfluen 3 PCR NOT DETECTED 03/23/21 20:20 Nasal Parainfluen 4 PCR NOT DETECTED 03/23/21 20:20 Nasal RSV (PCR) NOT DETECTED 03/23/21 20:20 Nasal B.pertussis DNA PCR NOT DETECTED 03/23/21 20:20 Nasal C.pneumoniae (PCR) NOT DETECTED 03/23/21 20:20 Jacobo Human Metapneumo PCR NOT DETECTED 03/23/21 20:20 Nasal M.pneumoniae (PCR) NOT DETECTED 03/23/21 20:20 Nasal SARS-CoV-2 (PCR) NOT DETECTED 03/23/21 20:20 Sepsis Event Note (H) - Evaluation Current Stage of Sepsis: Sepsis - Sepsis Criteria Sepsis Criteria: Recorded Heart Rate greater than 90 bpm, Recorded Respiratory Rate greater than 20, Respiratory: Increasing oxygen requirements, WBC count greater than 12,000 or less than 4000, Metabolic: lactate > 2 mmol/L
[2021-03-30] MEDS: MORPHINE SOL 10 MG/0.5 ML ORAL SYRINGE SL PRN ×7 (01:03→20:58)
[2021-03-30] MEDS: MIN OIL/DIMETHICON/COCONUT OIL 92 GM TUBE TOP PRN ×2 (01:15→18:27)
[2021-03-30] MEDS: GLYCOPYRROLATE 1 MG/5 ML VIAL SUBQ PRN ×2 (07:43→12:55)
[2021-03-30] MEDS: HYOSCYAMINE SL 0.125 MG TABLET SL PRN (11:14)
--- NOTE | 2021-03-30 15:16 | PROVIDER PROGRESS NOTE ---
Assessment/Plan - Problem List (1) Acute respiratory failure with hypoxia Assessment/Plan: Continues to need supplemental oxygen at a high rate, continue Ventimask for this. He will need this continued at home when he is [facility] with Hospice care. (2) Aspiration into airway Qualifiers: Encounter type: subsequent encounter Qualified Code(s): T17.908D - Unspecified foreign body in respiratory tract, part unspecified causing other injury, subsequent encounter Assessment/Plan: Several witnessed episodes of aspiration occurred and then he was made n.p.o. followed by a request from the to start comfort measures. He has been mostly somnolent for the past 2 days, is more awake today. Nurses are doing oral care. He will be transition to hospice at the time of discharge, probably [facility] tomorrow. (3) Dementia Qualifiers: Dementia type: Alzheimer's Alzheimer's disease onset: late-onset Dementia behavioral disturbance: without behavioral disturbance Qualified Code(s): G30.1 - Alzheimer's disease with late onset; F02.80 - Dementia in other diseases classified elsewhere without behavioral disturbance Assessment/Plan: As per Hx - Current Meds Current Meds: Current Medications Generic Name Dose Route Start Last Admin Trade Name Freq PRN Reason Stop Dose Admin Glycopyrrolate 0.2 mg 03/28/21 13:03 03/30/21 12:55 Glycopyrrolate 1 Mg/5 Ml Vial SUBQ 0.2 mg Q4H PRN Administration Excessive secretions Hyoscyamine 0.125 mg 03/29/21 11:54 03/30/21 11:14 Hyoscyamine Sl 0.125 Mg Tablet SL 0.125 mg Q4H PRN Administration Excessive Secretions Mineral Oil 1 applic 03/27/21 20:53 03/30/21 01:15 Min Oil/Dimethicon/Coconut Oil 92 Gm Tube TOP 1 applic PRN PRN Administration Skin Care Morphine Sulfate 10 mg 03/29/21 13:15 03/30/21 14:24 Morphine Prachi 10 Mg/0.5 Ml Oral Syringe SL 10 mg Q3HR PRN Administration Dyspnea Scopolamine HBr 1 patch 03/28/21 14:00 03/28/21 13:48 Scopolamine Patch TOP 1 patch Q3D SKYLER Administration - Lab Result Fish Bone Diagrams: 03/28/21 04:35 03/28/21 04:35 Subjective - Subjective Patient Reports: Feeling Better (Awake, follows with eyes and body when hearing his name, able to reach for TV remote, is watching TV, has ventimask on, is not answering/speaking) Objective Vital Signs: Vital Signs - 24 hr 03/30/21 04:00 Respiratory 24 Rate O2 Saturation 94 Oxygen O2 Source Oxymask I&O (Last 24 Hrs): Intake and Output Totals x24h 03/28/21 03/29/21 03/30/21 23:59 23:59 23:59 Intake Total 500 Balance 500 General: Alert, Mild distress HEENT: Other (Oral mucosa dry) Neck: Supple Neuro: Alert, Disoriented (Not answering vocally) Respiratory: No respiratory distress (With ventimask on), Rales, Rhonchi Abdomen: Normal bowel sounds, Soft Extremities: No edema - Results Results: Laboratory Results WBC 10.8 x10^3/uL (4.8-10.8) 03/28/21 04:35 RBC 4.40 10^6/uL (4.70-6.10) L 03/28/21 04:35 Hgb 13.4 g/dL (14.0-18.0) L 03/28/21 04:35 Hct 41.1 % (42.0-52.0) L 03/28/21 04:35 MCV 93.4 fL (80.0-94.0) 03/28/21 04:35 MCH 30.5 pg (27.0-31.0) 03/28/21 04:35 MCHC 32.6 g/dL (32.0-36.0) 03/28/21 04:35 RDW 13.8 % (12.0-15.0) 03/28/21 04:35 Plt Count 151 10^3/uL (130-450) 03/28/21 04:35 MPV 10.3 fL (7.4-11.4) 03/28/21 04:35 Neut # (Auto) 8.2 10^3/uL (1.5-6.6) H 03/28/21 04:35 Lymph # (Auto) 1.1 10^3/uL (1.5-3.5) L 03/28/21 04:35 [place] # (Auto) 1.3 10^3/uL (0.0-1.0) H 03/28/21 04:35 Eos # (Auto) 0.0 10^3/uL (0.0-0.7) 03/28/21 04:35 Baso # (Auto) 0.0 10^3/uL (0.0-0.1) 03/28/21 04:35 Absolute Nucleated RBC 0.00 x10^3/uL 03/28/21 04:35 Total Counted 100 03/25/21 05:20 Band Neuts % (Manual) 1 % (0-10) 03/25/21 05:20 Abnorm Lymph % (Manual) 0 % 03/25/21 05:20 Metamyelocytes % 2 % (-0) H 03/24/21 03:18 Myelocytes % 1 % (-0) H 03/24/21 03:18 Nucleated RBC % 0.0 /100WBC 03/28/21 04:35 Neutrophils # (Manual) 8.0 10^3/uL (1.5-6.6) H 03/25/21 05:20 Lymphocytes # (Manual) 1.1 10^3/uL (1.5-3.5) L 03/25/21 05:20 Monocytes # (Manual) 0.8 10^3/uL (0.0-1.0) 03/25/21 05:20 Eosinophils # (Manual) 0.4 10^3/uL (0-0.7) 03/25/21 05:20 Basophils # (Manual) 0.0 10^3/uL (0-0.1) 03/25/21 05:20 Differential Comment MANUAL DIFFERENTIAL 03/25/21 05:20 WBC Morphology NORMAL APPEARANCE (NORMAL) 03/25/21 05:20 Platelet Estimate DECREASED (<130,000) (NORMAL) 03/25/21 05:20 Platelet Morphology NORMAL APPEARANCE (NORMAL) 03/25/21 05:20 RBC Morph Micro Appear NORMAL APPEARANCE (NORMAL) 03/25/21 05:20 Anti-Xa Level 0.4 U/mL (-0.7) 03/25/21 18:31 Sodium 142 mmol/L (135-145) 03/28/21 04:35 Potassium 3.4 mmol/L (3.5-5.0) L 03/28/21 04:35 Chloride 107 mmol/L (101-111) 03/28/21 04:35 Carbon Dioxide 27 mmol/L (21-32) 03/28/21 04:35 Anion Gap 8.0 (6-13) 03/28/21 04:35 BUN 33 mg/dL (6-20) H 03/28/21 04:35 Creatinine 1.1 mg/dL (0.6-1.2) 03/28/21 04:35 Estimated GFR (MDRD) 64 (>89) L 03/28/21 04:35 Glucose 116 mg/dL (70-100) H 03/28/21 04:35 Lactic Acid 2.0 mmol/L (0.5-2.2) 03/24/21 07:36 Calcium 9.4 mg/dL (8.5-10.3) 03/28/21 04:35 Magnesium 2.0 mg/dL (1.7-2.8) 03/27/21 05:15 Total Bilirubin 1.5 mg/dL (0.2-1.0) H 03/23/21 16:25 AST 35 IU/L (10-42) 03/23/21 16:25 ALT 21 IU/L (10-60) 03/23/21 16:25 Alkaline Phosphatase 108 IU/L (42-121) 03/23/21 16:25 Troponin I High Sens 217.3 ng/L (2.3-19.7) H* 03/24/21 19:25 B-Natriuretic Peptide 579 pg/mL (5-100) H 03/23/21 16:25 Total Protein 7.0 g/dL (6.7-8.2) 03/23/21 16:25 Albumin 3.6 g/dL (3.2-5.5) 03/23/21 16:25 Globulin 3.4 g/dL (2.1-4.2) 03/23/21 16:25 Albumin/Globulin Ratio 1.1 (1.0-2.2) 03/23/21 16:25 Lipase 24 U/L (22-51) 03/23/21 16:25 Urine Color YELLOW 03/23/21 19:10 Urine Clarity HAZY (CLEAR) 03/23/21 19:10 Urine pH 5.0 PH (5.0-7.5) 03/23/21 19:10 Ur Specific [place] >=1.030 (1.002-1.030) H 03/23/21 19:10 Urine Protein TRACE mg/dL (NEGATIVE) 03/23/21 19:10 Urine Glucose (UA) NEGATIVE mg/dL (NEGATIVE) 03/23/21 19:10 Urine Ketones TRACE mg/dL (NEGATIVE) 03/23/21 19:10 Urine Occult Blood MODERATE (NEGATIVE) H 03/23/21 19:10 Urine Nitrite POSITIVE (NEGATIVE) H 03/23/21 19:10 Urine Bilirubin NEGATIVE (NEGATIVE) 03/23/21 19:10 Urine Urobilinogen 0.2 (NORMAL) E.U./dL (NORMAL) 03/23/21 19:10 Ur Leukocyte Esterase SMALL (NEGATIVE) H 03/23/21 19:10 Urine RBC 6-10 /HPF (0-5) H 03/23/21 19:10 Urine WBC 11-25 /HPF (0-3) H 03/23/21 19:10 Ur Squamous Epith Cells NONE SEEN (<= Few) 03/23/21 19:10 Urine Crystals 11-25 Ca Oxalate /LPF 03/23/21 19:10 Urine Bacteria Many /HPF (None Seen) H 03/23/21 19:10 Ur Microscopic Review INDICATED 03/23/21 19:10 Urine Culture Comments INDICATED 03/23/21 19:10 Nasal Adenovirus (PCR) NOT DETECTED 03/23/21 20:20 Nasal B. parapertussis DNA (PCR) NOT DETECTED 03/23/21 20:20 Nasal Coronavir 229E PCR NOT DETECTED 03/23/21 20:20 Nasal Coronavir HKU1 PCR NOT DETECTED 03/23/21 20:20 Nasal Coronavir NL63 PCR NOT DETECTED 03/23/21 20:20 Nasal Coronavir OC43 PCR NOT DETECTED 03/23/21 20:20 Nasal Enterovir/Rhinovir PCR NOT DETECTED 03/23/21 20:20 Nasal Influenza B PCR NOT DETECTED 03/23/21 20:20 Nasal Influenza A PCR NOT DETECTED 03/23/21 20:20 Nasal Parainfluen 1 PCR NOT DETECTED 03/23/21 20:20 Nasal Parainfluen 2 PCR NOT DETECTED 03/23/21 20:20 Nasal Parainfluen 3 PCR NOT DETECTED 03/23/21 20:20 Nasal Parainfluen 4 PCR NOT DETECTED 03/23/21 20:20 Nasal RSV (PCR) NOT DETECTED 03/23/21 20:20 Nasal B.pertussis DNA PCR NOT DETECTED 03/23/21 20:20 Nasal C.pneumoniae (PCR) NOT DETECTED 03/23/21 20:20 Jacobo Human Metapneumo PCR NOT DETECTED 03/23/21 20:20 Nasal M.pneumoniae (PCR) NOT DETECTED 03/23/21 20:20 Nasal SARS-CoV-2 (PCR) NOT DETECTED 03/23/21 20:20 Sepsis Event Note (H) - Evaluation Current Stage of Sepsis: Sepsis - Sepsis Criteria Sepsis Criteria: Recorded Heart Rate greater than 90 bpm, Recorded Respiratory Rate greater than 20, Respiratory: Increasing oxygen requirements, WBC count greater than 12,000 or less than 4000, Metabolic: lactate > 2 mmol/L
[2021-03-31] MEDS: MORPHINE SOL 10 MG/0.5 ML ORAL SYRINGE SL PRN ×8 (01:31→15:00)
[2021-03-31] MEDS: MIN OIL/DIMETHICON/COCONUT OIL 92 GM TUBE TOP PRN (01:32)
[2021-03-31] MEDS: GLYCOPYRROLATE 1 MG/5 ML VIAL SUBQ PRN ×2 (07:38→12:24)
[2021-03-31] MEDS: HYOSCYAMINE SL 0.125 MG TABLET SL PRN ×2 (07:44→12:25)
--- NOTE | 2021-03-31 08:50 | Discharge Plan ---
Discharge Plan Problem Reviewed?: Yes Disposition: 50 Hospice/Home DC/Xfer Condition: Critical Prescriptions: Morphine Oral Soln [Roxanol] 10 mg SL Q3HR PRN #30 ml PRN Reason: Dyspnea Acetaminophen [Tylenol] 120 mg GA Q6HR PRN #10 supp PRN Reason: Pain Or Fever > 38c (100.4f) Ondansetron Odt [Zofran Odt] 4 mg TL Q6HR PRN #10 tablet PRN Reason: Nausea / Vomiting Min Oil/Dimeth/Coconut Oil Crm [Cavilon] 1 applic TOP PRN PRN #1 tub PRN Reason: Skin Care Hyoscyamine [Levsin] 0.125 mg SL Q4H PRN #10 tablet PRN Reason: Excessive Secretions Glycopyrrolate [Robinul] 0.2 mg SUBQ Q4H PRN #10 vial PRN Reason: Excessive secretions Scopolamine Patch [Transderm-Scop] 1 patch TOP Q3D #4 patch Zinc Oxide 20% Oint [Zinc Oxide] 1 applic TOP PRN PRN #1 tub PRN Reason: Skin Care Diet: Regular (Comfort eating only) Activity Restrictions: Activity as Tolerated Weight Bearing: No Weight Health Concerns: Patient was admitted with infection which was mostly treated, has a history of dementia, has been aspirating which continued to worsen. He was transition to comfort care and is going home with Hospice. Plan of Treatment: As above. Care Goals: Comfort for end-of-life care. Assessment: The is agreeable with the plan. No Smoking: If you smoke, Please STOP! Call for help. Follow-up with: Cecilio Chris MD [Provider Admit Priv/Credential] -
--- NOTE | 2021-03-31 08:53 | DISCHARGE SUMMARY ---
Discharge Summary Admit Date: 03/23/21 Discharge Date: 03/31/21 Discharging Provider: Dr Brigitte Rousseau Primary Care Provider: ARELI Owen Code Status: Do Not Attempt Resuscitation Discharge Disposition: 20 - HPI History of Present Illness: From the admission H&P of Dr Faith Melton: This is an 85-year-old white male who has a history of dementia that is profound. He has a chronic daily cough that is quite rhonchorous and due to reflux disease. He is rarely seen in our emergency room. The last time he was seen was in September 05, 2017. He does have falls at home where she calls EMS to pick him up. He uses a walker and wheelchair at home. Memory loss began in 2008. By 2012 he was getting lost 20 with driving cities. By 2014 Mini-Mental Status was 25/30 and was started on medications. 2015 he was getting lost while walking in town. [place] were taken away from him in 2017. 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 Has been evaluated by neurology since January 2019 with a work-up being done. Basically he has Alzheimer's dementia. His gait ataxia and falls are due to dense peripheral neuropathy of the legs. Using a walker by 2018, using a wheelchair by 2019. Brought in by ambulance today because of generalized abdominal pain, shaking and chills and vomiting. They had already gone to urgent care with these complaints and while there he was so diffusely diaphoretic and ambulance was called. No EKG or labs were done. Because of his profound dementia, documents that she would like us to focus on nonaggressive interventions. While she is okay with things such as antibiotics, IV fluids, medicines by mouth, she does not want surgeries, transfers to other facilities, and is a DO NOT RESUSCITATE. In the emergency room he was an elderly ill-appearing white male, confused, with a temperature of 36.3. He was covered in vomitus. Heart rate of 113. Respirations 17 that would go up to 27. And O2 sats that were in the 70s on the scene with EMS and were in the 80s with us in the emergency room. He required 1 to 2 L to bring him up to 91%. He was tachypneic, was warm to touch, decreased lung sounds at the bases. Had moderate bilateral pitting pedal edema. Chest x- ray did not show any pneumonia and had chronic interstitial fibrotic changes. Lactic acid was 2.4. BUN and creatinine were stable for him. Initial troponin was 78. Second troponin was 137.5. BNP 579. White cell count 13.8 where his baseline is in the 6. Left shift. Urinalysis had moderate blood, positive nitrites, leukocyte Estrace, red cells, white cells, no squamous cells, calcium oxalate crystals, many bacteria. Dr. Mao asked the patient to be please admitted to our service for sepsis with UTI and acute decompensation causing more confusion in this demented man. And to have conservative treatment for an N STEMI. As we were discussing the case, his hypoxia was noted. Dr. Narvaez will be ordering a CT pulmonary angiogram and then the patient will come to [facility]. He will get a shot of Lovenox empirically until the CT angiogram comes back. Both RN and respiratory therapy have reported that he is having current respiratory distress with rhonchi, gurgling. He is down to 83% O2 to sat on ox ygen mask. 10 L. We will switch him to a nonrebreather. Stop IV fluids. Give Lasix 20 mg IV push. Try maintain O2 sats above 92% without transfer to ICU. He is not a candidate for BiPAP or intubation. This is in context of someone having an NSTEMI. - HOSPITAL COURSE Hospital Course: 1) Sepsis His blood culture turned positive and the source was pneumonia versus UTI. He was on empiric IV antibiotics and we followed CBC daily. (2) UTI (urinary tract infection) The urine cx became positive for bacteria. We continued with empiric IV cefepime until sensitivities returned, then he was transitioned to Ceftriaxone. (3) Bacteremia due to Klebsiella pneumoniae He got iv antibiotics (as above) then we planned on changing to po Levaquin and treat for a total of 21 days (for a complicated UTI causing bacteremia in a male, for prostate penetration), but he started aspirating. The requested Comfort measures, in support from Palliative Sonar Watchstander, Radha Waite NP. (4) Acute respiratory failure with hypoxia He required continued O2 supplementation and we treated the underlying pneumonia. The other issue was that he had CHF, with high troponins. (5) NSTEMI (non-ST elevated myocardial infarction) He ruled in for an NSTEMI by troponin elevation. He was started on aspirin daily, beta-neha continued, Lipitor started, therapeutic Lovenox started. (6) Acute systolic heart failure An Echo was done showing LVEF of 35%. IV fluids were stopped, he needed Lasix then Morphine, and continued on supplemental O2 (7) Aspiration pneumonia As per history, after vomiting. He was on empiric iv antibiotics and supplemental oxygen. Later in his course, he was aspirating food and fluids and NPO was started when he was on Comfort Care. (8) Afib Rate was controlled when he was taking po meds. (9) Dementia The described that dementia had started > 5 years ago, and most recently he was able to pivot and feed and toilet independently, then he sat and watches cartoons all day. The requested a palliative care consult while he was here, and Radha Waite FISH ROE PROCESSOR did consult. (10) Comfort measures only status As described above and Hospice accepted him, but he here. - ALLERGIES Allergies/Adverse Reactions: Allergies Allergy/AdvReac Type Severity Reaction Status Date / Time No Known Drug Allergies Allergy Verified 03/23/21 16:28 - MEDICATIONS Home Medications: Ambulatory Orders Medication Instructions Recorded Confirmed Acetaminophen [Tylenol] 120 mg [place] Q6HR PRN #10 supp 03/31/21 Glycopyrrolate [Robinul] 0.2 mg SUBQ Q4H PRN #10 vial 03/31/21 Hyoscyamine [Levsin] 0.125 mg SL Q4H PRN #10 tablet 03/31/21 Min Oil/Dimeth/Coconut Oil Crm 1 applic TOP PRN PRN #1 tub 03/31/21 [Cavilon] Morphine Oral Soln [Roxanol] 10 mg SL Q3HR PRN #30 ml 03/31/21 Ondansetron Odt [Zofran Odt] 4 mg TL Q6HR PRN #10 tablet 03/31/21 Scopolamine Patch [Transderm-Scop] 1 patch TOP Q3D #4 patch 03/31/21 Zinc Oxide 20% Oint [Zinc Oxide] 1 applic TOP PRN PRN #1 tub 03/31/21 - LABS Result Diagrams: 03/28/21 04:35 03/28/21 04:35 - SEPSIS Current Stage of Sepsis: Sepsis Sepsis Criteria: Recorded Heart Rate greater than 90 bpm, Recorded Respiratory Rate greater than 20, Respiratory: Increasing oxygen requirements, WBC count greater than 12,000 or less than 4000, Metabolic: lactate > 2 mmol/L
[2021-03-31 12:49] VITALS: BP 136/49
[2021-03-31] MEDS: SCOPOLAMINE PATCH TOP SCH (13:03)
--- NOTE | 2021-03-31 16:16 | Discharge Plan ---
Discharge Plan Problem Reviewed?: Yes Disposition: 20 Prescriptions: Morphine Oral Soln [Roxanol] 10 mg SL Q3HR PRN #30 ml PRN Reason: Dyspnea Acetaminophen [Tylenol] 120 mg IN Q6HR PRN #10 supp PRN Reason: Pain Or Fever > 38c (100.4f) Ondansetron Odt [Zofran Odt] 4 mg TL Q6HR PRN #10 tablet PRN Reason: Nausea / Vomiting Min Oil/Dimeth/Coconut Oil Crm [Cavilon] 1 applic TOP PRN PRN #1 tub PRN Reason: Skin Care Hyoscyamine [Levsin] 0.125 mg SL Q4H PRN #10 tablet PRN Reason: Excessive Secretions Glycopyrrolate [Robinul] 0.2 mg SUBQ Q4H PRN #10 vial PRN Reason: Excessive secretions Scopolamine Patch [Transderm-Scop] 1 patch TOP Q3D #4 patch Zinc Oxide 20% Oint [Zinc Oxide] 1 applic TOP PRN PRN #1 tub PRN Reason: Skin Care Activity Restrictions: Activity as Tolerated Weight Bearing: No Weight Health Concerns: Patient was admitted with infection which was mostly treated, has a history of dementia, has been aspirating which continued to worsen. He was transition to comfort care and is going home with Hospice. Plan of Treatment: As above. Care Goals: Comfort for end-of-life care. Assessment: The is agreeable with the plan. No Smoking: If you smoke, Please STOP! Call for help. Follow-up with: Cecilio Chris MD [Provider Admit Priv/Credential] -
--- NOTE | 2021-03-31 16:18 | DISCHARGE SUMMARY ---
Discharge Summary Discharge Date: 03/31/21 Discharging Provider: Dr Brigitte Rousseau Discharge Disposition: 20 - HOSPITAL COURSE Hospital Course: (9) Sepsis Qualifiers: Sepsis type: sepsis due to unspecified organism Sepsis acute organ dysfunction status: without acute organ dysfunction Qualified Code(s): A41.9 - Sepsis, unspecified organism Assessment/Plan: Resolved (1) Acute respiratory failure with hypoxia Assessment/Plan: O2 needs are sto=ill high and he is tachypneic, and coughing more since yesterday mid-day. Continue O2. Palliative Care provider has discussed with and she has rfequested Comfort Care, will order these meds and management. The patient is worsening and is transitioning to imminently dying. (2) Aspiration pneumonia Qualifiers: Aspiration pneumonia type: due to gastric secretions Laterality: right Lung location: upper lobe of lung Qualified Code(s): J69.0 - Pneumonitis due to inhalation of food and vomit Assessment/Plan: Awaiting swallow eval by ST. Will add iv Flagyl for covering an aspiration PNA and stop Doxycycline. Will transition essential meds to iv Will order Robinul and Scopalamine patch. (3) Acute systolic heart failure Assessment/Plan: Continue iv bid Lasix, started yesterday for CHF by CXR yesterday and much more tachypneic with high O2 needs. (4) Afib Assessment/Plan: Rate was controlled but no po meds were administered today due to aspuration (5) NSTEMI (non-ST elevated myocardial infarction) Assessment/Plan: As per this admission (6) Bacteremia due to Klebsiella pneumoniae Assessment/Plan: We planned on changing to po Levaquin today and treat for 21 days for complicated UTI causing bacteremia in a male, for good prostate penetration, but now that he is aspitrating, will swith to iv Levaquin, with this plan. (7) UTI (urinary tract infection) Qualifiers: Urinary tract infection type: site unspecified Hematuria presence: without hematuria Qualified Code(s): N39.0 - Urinary tract infection, site not specified Assessment/Plan: As above. (8) Dementia Qualifiers: Dementia type: Alzheimer's Alzheimer's disease onset: late-onset Dementia behavioral disturbance: without behavioral disturbance Qualified Code(s): G30.1 - Alzheimer's disease with late onset; F02.80 - Dementia in other diseases classified elsewhere without behavioral disturbance Assessment/Plan: Will cancel PT and Ot attempts Aspiration into airway Comfort measures only status - ALLERGIES Allergies/Adverse Reactions: Allergies Allergy/AdvReac Type Severity Reaction Status Date / Time No Known Drug Allergies Allergy Verified 03/23/21 16:28 - MEDICATIONS Home Medications: Ambulatory Orders Medication Instructions Recorded Confirmed Acetaminophen [Tylenol] 120 mg ND Q6HR PRN #10 supp 03/31/21 Glycopyrrolate [Robinul] 0.2 mg SUBQ Q4H PRN #10 vial 03/31/21 Hyoscyamine [Levsin] 0.125 mg SL Q4H PRN #10 tablet 03/31/21 Min Oil/Dimeth/Coconut Oil Crm 1 applic TOP PRN PRN #1 tub 03/31/21 [Cavilon] Morphine Oral Soln [Roxanol] 10 mg SL Q3HR PRN #30 ml 03/31/21 Ondansetron Odt [Zofran Odt] 4 mg TL Q6HR PRN #10 tablet 03/31/21 Scopolamine Patch [Transderm-Scop] 1 patch TOP Q3D #4 patch 03/31/21 Zinc Oxide 20% Oint [Zinc Oxide] 1 applic TOP PRN PRN #1 tub 03/31/21 - LABS Result Diagrams: 03/28/21 04:35 03/28/21 04:35 - SEPSIS Current Stage of Sepsis: Sepsis Sepsis Criteria: Recorded Heart Rate greater than 90 bpm, Recorded Respiratory Rate greater than 20, Respiratory: Increasing oxygen requirements, WBC count greater than 12,000 or less than 4000, Metabolic: lactate > 2 mmol/L
== END 2021-03-31 16:05 | disposition expired | DRG 871 ==
LOC: EDUNIT# → ED 16:08 → MS2 20:07
PROVIDERS: ADMIT Specialist; ATTEND Internal Medicine
DX: R09.02 Hypoxemia (principal); R77.8 Other specified abnormalities of plasma proteins; R10.9 Unspecified abdominal pain; R07.9 Chest pain, unspecified; R11.10 Vomiting, unspecified; R94.31 Abnormal electrocardiogram [ECG] [EKG]; D72.829 Elevated white blood cell count, unspecified; F03.90 Unspecified dementia, unspecified severity, without behavioral disturbance, psychotic disturbance, mood disturbance, and anxiety; A41.59 Other Gram-negative sepsis; J96.01 Acute respiratory failure with hypoxia; Z20.822 Contact with and (suspected) exposure to COVID-19; M54.9 Dorsalgia, unspecified; G89.29 Other chronic pain; I21.4 Non-ST elevation (NSTEMI) myocardial infarction; R11.2 Nausea with vomiting, unspecified; I50.21 Acute systolic (congestive) heart failure; J69.0 Pneumonitis due to inhalation of food and vomit; N39.0 Urinary tract infection, site not specified; J90 Pleural effusion, not elsewhere classified; M48.54XA Collapsed vertebra, not elsewhere classified, thoracic region, initial encounter for fracture; I11.0 Hypertensive heart disease with heart failure; I48.91 Unspecified atrial fibrillation; G30.1 Alzheimer's disease with late onset; F02.80 Dementia in other diseases classified elsewhere, unspecified severity, without behavioral disturbance, psychotic disturbance, mood disturbance, and anxiety; Z66 Do not resuscitate; K21.9 Gastro-esophageal reflux disease without esophagitis; R05 Cough; Z99.3 Dependence on wheelchair; R60.0 Localized edema; Z91.81 History of falling; G60.3 Idiopathic progressive neuropathy; B35.1 Tinea unguium; Z87.891 Personal history of nicotine dependence; R32 Unspecified urinary incontinence; R41.0 Disorientation, unspecified; F41.9 Anxiety disorder, unspecified; R27.0 Ataxia, unspecified; Z51.5 Encounter for palliative care; R53.1 Weakness; T17.908A Unspecified foreign body in respiratory tract, part unspecified causing other injury, initial encounter
CPT/HCPCS: 36415; 71045; 71275; 76770; 80048; 80053; 81001; 83605; 83690; 83735; 83880; 84484; 85025; 85520; 87040; 87077; 87086; 87150; 87181; 87631; 93005; 93306; 97162; 97166; 99223; 99233; 99285; 99291; A6250; A9270; J1650; J3490; J7120; Q9967; 0202U; 81003